=== PATIENT | male | born 1950 | race Caucasian/White ===

== ENCOUNTER 2020-05-28 10:37 | Outpatient (CLI) | payer MEDICARE, SELFPAY ==
--- NOTE | 2020-05-28 10:39 | ECG_ITS ---
Measurements Intervals [place] Rate: 69 P: 9 VT: 150 QRS: 6 QRSD: 112 T: 6 QT: 429 QTc: 462 Interpretive Statements SINUS RHYTHM DELAYED PRECORDIAL R/S TRANSITION MINIMAL Q WAVES- HIGH LATERAL LEADS INFERIOR INFARCT, AGE INDETERMINATE BASELINE ARTIFACT- I, II, III, AVR, AVL, AVF ABNORMAL ECG Electronically Signed On 05-28-2020 12:23:02 CDT by Arsh Schrader D.O.
== END 2020-05-28 10:38 | disposition home or self-care (01) ==
LOC: ANHSURGERY 10:39
PROVIDERS: PCP Family Medicine; Visit Provider Orthopaedic Surgery
DX: Z01.818 Encounter for other preprocedural examination (principal); I10 Essential (primary) hypertension; R94.31 Abnormal electrocardiogram [ECG] [EKG]
CPT/HCPCS: 93005

== ENCOUNTER 2020-05-29 01:59 | Outpatient (CLI) | payer MEDICARE, SELFPAY ==
[2020-05-29 19:30] LABS: SARS-CoV-2 RNA PCR Negative
== END 2020-05-29 02:00 | disposition home or self-care (01) ==
LOC: ANHCOVIDDT 01:59
PROVIDERS: PCP Family Medicine; Visit Provider Orthopaedic Surgery
DX: Z01.812 Encounter for preprocedural laboratory examination (principal); Z11.59 Encounter for screening for other viral diseases
CPT/HCPCS: 87635; C9803; U0003

== ENCOUNTER 2020-06-01 02:27 | Day surgery (SDC) | payer MEDICARE, SELFPAY ==
[2020-05-27 16:15] VITALS: BMI 35.9
[2020-06-01] VITALS (10 sets, daily range): BP systolic 134–188; BP diastolic 66–89; PULSE 66–77; RESP 12–20; TEMP 36.2–36.5; O2SAT 94–97
--- NOTE | 2020-06-01 08:57 | WPDHPUPDATE1 ---
History and Physical Update Update Date/Time: 06/01/20 08:57 History and Physical has been reviewed, including an updated exam of the patient. There are NO changes in the patient's condition. Risks, benefits, and alternatives have been discussed and questions answered. Patient agrees to proceed with procedure.
[2020-06-01] MEDS: CELECOXIB 200 MG CAPSULE PO (13:10)
[2020-06-01] MEDS: ACETAMINOPHEN 500 MG TABLET 1000 MG PO (13:10)
[2020-06-01] MEDS: LACTATED RINGERS 1,000 ML 30 ML IV CONT (13:15)
--- NOTE | 2020-06-01 13:41 | WPDANESEPPF ---
Anes - Initial Pre Proc Eval Procedure: Operation Date: 06/01/20 14:15 Proposed Procedures p Incision And Drainage Excision Of Left Prepatellar Bursa - Zeus Miguel MD Date/Time: 06/01/20 13:41 Surgeon: Zeus Miguel MD Pre Op Diagnosis: Left Prepatella Bursa Abcess Patient Data Age: 69 Gender: M Height: 5 ft 10 in Weight: 119.5 kg Last Vital Signs Temp 36.2 C L 06/01/20 13:08 Pulse 77 06/01/20 13:08 Resp 18 06/01/20 13:08 BP 134/66 06/01/20 13:08 Pulse Ox 97 06/01/20 13:08 Allergies Allergy/AdvReac Type Severity Reaction Status Date / Time No Known Allergies Allergy Verified 06/01/20 12:54 Home Medications Medication Instructions Recorded Confirmed Type levothyroxine 150 mcg tablet 150 mcg PO DAILY #90 tablet 02/24/20 06/01/20 Rx meloxicam 7.5 mg tablet 7.5 mg PO DAILY #90 tablet 02/24/20 06/01/20 Rx omeprazole 40 mg capsule,delayed 40 mg PO DAILY #90 cap 03/04/20 06/01/20 Rx release allopurinol 100 mg tablet 100 mg PO DAILY #90 tablet 04/28/20 06/01/20 Rx pravastatin 40 mg tablet 40 mg PO DAILY #90 tablet 05/12/20 06/01/20 Rx tiotropium bromide 2.5 2 inhalation INHALATION QAM #4 gm 05/26/20 06/01/20 Rx mcg/actuation mist for inhalation amlodipine 2.5 mg PO DAILY 05/27/20 06/01/20 History chlorhexidine gluconate 4 % 1 applic TOPICAL ONCE #237 ml 05/27/20 06/01/20 Rx topical liquid Patient hx anesthesia problems: none Family hx anesthesia problems: none PMFSH Past Medical History Medical History Anemia Elevated prostate specific antigen (PSA) Gout Hyperglycemia Hyperlipidemia Hypertension Hypothyroidism MIGNON (obstructive sleep apnea) Osteoarthritis Pulmonary fibrosis Tobacco abuse Surgical History Surgical History H/O ventral hernia repair Social History Social History Smoking packs per day: 1 Smoking cigarettes per day: 20.0 Years smoked: 10 Smoking pack-years: 10.00 Smoking status: Former smoker Tobacco type: cigarettes Smoking end date: 10/01/17 Alcohol intake: never Substance use: never Substance use type: does not use Living arrangements: with family Gender identity (if verbalized by the patient): Male Spiritual care concerns: No Anes - Eval Final PreProcedure Day of Procedure 06/01/20 13:41 Patient weight: obese Heart: regular rate and rhythm Lungs: decreased breath sounds Airway: Mallampati scale class III Neurological: alert and oriented Last oral intake: >/= 8 hours ASA classification: IV Emergent: no Anesthetic plan: proceed Anesthesia type and monitoring: general LMA and standard monitoring Informed Consent: The patient's anesthetic plan and its attendant risks and benefits were discussed with the patient/family/POA. Questions were solicited and answers provided to the satisfaction of the patient/family/POA.
--- NOTE | 2020-06-01 14:52 | SUR.PREOP ---
PT RESTING QUIELTY, DENIES NEEDS, UPDATED ON SURGERY TIME DELAY UPON ARRIVAL AND NOW.
[2020-06-01] MEDS: ceFAZolin 2 GM/D5W 50 ML 2 GM/50 ML BAG IVPB (15:55)
--- NOTE | 2020-06-01 17:08 | PM.OP ---
Procedure Note - Brief Procedure Note - Brief Date of procedure: 06/01/20 Pre-op diagnosis: Left Prepatella Bursa Abcess Post-op diagnosis: same (pathology and culture pending) Procedure performed: I AND D AND EXCISION OF LEFT PRE PATELLA BURSAE Anesthesia: GLMA Surgeon: Zeus Miguel MD Estimated blood loss (mL): 100 Drains: Yes Pathology: yes Complications: No immediate complications Condition: stable Disposition: PACU
--- NOTE | 2020-06-01 17:10 | PM.PROC ---
Procedure Note - Detailed Date of procedure: 06/01/20 Pre-op diagnosis: Left Prepatella Bursa Abcess Post-op diagnosis: same Procedure performed: LEFT KNEE I AND D AND EXCISION OF PREPATELLA BURSAE Description of procedure: THE LEFT KNEE WAS PREPPED AND DRAPED FROM THE TOES TO THE THIGH. TORNEQUET WAS INFLATED. INCISION WAS MADE OVER THE ABSCESS. CLOUDY FLUID WAS EXTRUDED FRO THR ABSCESS. IT APPEARED TO BE GOUT VS INFECTION. CULTURES WERE TAKEN. ANTIBIOTICS WERE STARTED. INCISION THEN WAS EXTENDED PROXIMALLY AND DISTALLY. DISSECTION CONTINUED UNTIL THE NORMAL PATELLA TENDON STRUCTURE WAS IDENTIFIED. SOFT TISSUE CONSISTING OF BURSA AND GOUTY TOPHUS AND SCAR TISSUE WERE THEN REMOVED FROM THE PREPATELLA REGION AND SHARP EXCISIONAL DEBRIDEMENT DOWN TO PERIOSTEUM WAS PREFORMED UNTIL THERE WAS GOOD BLEEDING TISSUE. SOME TISSUE WAS SENT FOR PATHOLOGY. THE DISSECTION CONTINUED UNTIL THE PATELLA WAS IDENTIFIED. AT THAT POINT THERE APPEARED TO HAVE NO GOUTY TOPHI IN THE PATELLA RETINACULUM AND SURROUNDING TISSUES. THE WOUND WAS THEN IRRIGATED WITH COPIOUS AMOUNTS OF FLUID. THE TORNEQUET WAS DEFLATED AND THE BLEEDERS WERE CAUTERIZED. THERE WAS AN ABUNDANT AMOUNT OF REDUNDANT SKIN. A DRAIN WAS PLACED IN THE DEEP FASCIA TO PREVENT SEROMA FORMATION. THE WOUND WAS CLOSED WITH A LAYER OF 2-0 VICRYL IN 2 LAYERS AND THEN THE SKIN WAS CLOSED WITH RAFI. STERILE DRESSING WAS APPLIED. PATIENT WAS EXTUBATED. Surgeon: Zeus Miguel MD
[2020-06-01] MEDS: ONDANSETRON INJ 4 MG/2 ML VIAL IV PUSH (17:26)
== END 2020-06-01 18:55 | disposition home or self-care (01) ==
PROVIDERS: PCP Family Medicine; Visit Provider Orthopaedic Surgery
PROC: (CPT 27301; principal; 2020-06-01 14:15)
DX: M71.062 Abscess of bursa, left knee (principal); L72.0 Epidermal cyst; I10 Essential (primary) hypertension; E78.5 Hyperlipidemia, unspecified; E03.9 Hypothyroidism, unspecified; M10.9 Gout, unspecified; G47.33 Obstructive sleep apnea (adult) (pediatric)
CPT/HCPCS: 27301; 87070; 87075; 87077; 87205; 88304; 88311; A9270; J0690; J1100; J2250; J2405; J2704; J3010; J7120

== ENCOUNTER 2020-06-08 20:27 | Emergency (ER) | payer MEDICARE, SELFPAY ==
[2020-06-08 20:29] VITALS: BP 180/96; PULSE 91; RESP 22; TEMP 36.3; O2SAT 99
--- NOTE | 2020-06-08 20:46 | ED.WOUNDLAC ---
HPI - Wound/Laceration General Chief Complaint: Extremity Problem,Nontraumatic Stated Complaint: staple fell out? Time Seen by Provider: 06/08/20 20:39 History of Present Illness HPI narrative: He had surgery to the right knee 1 week ago. Today he had a large amount of bleeding from the wound. He thinks that he may have bumped it. He has not removed the dressing to look at the wound yet. No pain. Related Data Home Medications Medication Instructions Recorded Confirmed amlodipine 2.5 mg PO DAILY 05/27/20 06/03/20 Allergies Allergy/AdvReac Type Severity Reaction Status Date / Time No Known Allergies Allergy Verified 06/08/20 20:53 Review of Systems Review of Systems: All systems reviewed & are unremarkable except as noted in HPI and below Neurologic: Denies numbness and Denies weakness PMFSH Past Medical History Medical History Anemia Elevated prostate specific antigen (PSA) Gout Hyperglycemia Hyperlipidemia Hypertension Hypothyroidism MIGNON (obstructive sleep apnea) Osteoarthritis Pulmonary fibrosis Tobacco abuse Surgical History Surgical History H/O ventral hernia repair Social History Social History Smoking packs per day: 1 Smoking cigarettes per day: 20.0 Years smoked: 10 Smoking pack-years: 10.00 Smoking status: Former smoker Tobacco type: cigarettes Smoking end date: 10/01/17 Alcohol intake: never Substance use: never Substance use type: does not use Gender identity (if verbalized by the patient): Male Spiritual care concerns: No Exam Const: General: no acute distress and alert Orientation/consciousness: patient oriented x3 HENMT: Head: normal to inspection Resp: Effort & Inspection: normal respiratory effort Cardio: Other: 2+ DP pulse on the right Skin: Other: 15 cm surgical wound over the anterior right knee with mattie in place. Small skin tear in the inferior portion of the wound with active bleeding and palpable underlying hematoma. Neuro: General: patient oriented x3, moves all extremities and no focal motor deficits Extrem: Other: full ROM Course Vital Signs Vital signs: Vital Signs Temperature 36.3 C L 06/08/20 20:29 Pulse Rate 91 06/08/20 20:29 Respiratory Rate 22 H 06/08/20 20:29 Blood Pressure 180/96 H 06/08/20 20:29 Pulse Oximetry 99 06/08/20 20:29 Temperature 36.3 C L 06/08/20 20:29 Pulse Rate 91 06/08/20 20:29 Respiratory Rate 22 H 06/08/20 20:29 Blood Pressure 180/96 H 06/08/20 20:29 Pulse Oximetry 99 06/08/20 20:29 MDM - Wound/Laceration MDM Narrative Medical decision making narrative: [place] in place and wound well approximated. I will redressed the wound and have an SHIRA wrap applied to help slow the bleeding. Medical Records Attestation: I reviewed the patient's medical records. Discharge Plan Discharge Clinical Impression: Bleeding from wound Patient Disposition: Home, Self-Care Condition: Stable Prescriptions: No Action amlodipine 2.5 mg tablet 2.5 mg PO DAILY RF: 0 hydrocodone-acetaminophen [[place]] 5-325 mg tablet 1 tablet PO Q6H PRN (Reason: pain) Qty: 60 RF: 0 meloxicam 7.5 mg tablet 7.5 mg PO DAILY Qty: 90 RF: 1 levothyroxine 150 mcg tablet 150 mcg PO DAILY Qty: 90 RF: 1 omeprazole 40 mg capsule,delayed release(DR/EC) 40 mg PO DAILY Qty: 90 RF: 0 allopurinol 100 mg tablet 100 mg PO DAILY Qty: 90 RF: 0 pravastatin 40 mg tablet 40 mg PO DAILY Qty: 90 RF: 0 tiotropium bromide [Spiriva Respimat] 2.5 mcg/actuation mist 2 inhalation inhalation QAM Qty: 4 RF: 0 amoxicillin-pot clavulanate [Augmentin] 875-125 mg tablet 1 tablet PO Q12H Qty: 30 RF: 0 Follow-up/Referrals: Keri Cui DO [Primary Care Provider] - Discharge Date/Time: 06/08/20 21:1
== END 2020-06-08 21:11 | disposition home or self-care (01) ==
PROVIDERS: Emergency Provider Emergency Medicine; PCP Family Medicine
DX: L76.22 Postprocedural hemorrhage of skin and subcutaneous tissue following other procedure (principal); I10 Essential (primary) hypertension; Z87.891 Personal history of nicotine dependence; M10.9 Gout, unspecified; E78.5 Hyperlipidemia, unspecified; E03.9 Hypothyroidism, unspecified; G47.33 Obstructive sleep apnea (adult) (pediatric); M19.90 Unspecified osteoarthritis, unspecified site; J84.10 Pulmonary fibrosis, unspecified
CPT/HCPCS: 99282

== ENCOUNTER 2020-06-10 10:07 | Outpatient (CLI) | payer MEDICARE, SELFPAY ==
[2020-06-10 10:57] LABS: Basophils Percent Auto 0.3 % (0.2-1.2); Eosinophils Absolute Auto 0.1 K/mm3 (0-0.3); Eosinophils Percent Auto 0.8 % (0-4.4); Hematocrit 36.8 % (42.0-52.0); Hemoglobin 12.1 g/dL (14.0-18.0); Immature Granulocyte Absolute 0.09 K/mm3 (0.00-0.031); Immature Granulocyte Percent A 0.8 % (0-0.5); Lymphocytes Absolute Auto 0.96 K/mm3 (0.9-3.2); Mean Corpuscular HGB Conc 32.9 g/dl (32-36); Mean Corpuscular Hemoglobin 28.8 pg (26-34); Mean Corpuscular Volume 87.6 fl (80-100); Mean Platelet Volume 11.6 fl (7.4-10.4); Monocytes Absolute Auto 0.9 K/mm3 (0.1-0.6); Monocytes Percent Auto 8.6 % (2.6-8.5); Neutrophils Absolute Auto 8.5 K/mm3 (1.3-6.7); Neutrophils Percent Auto 80.5 % (45.5-73.1); Platelet Count Result 204 k/mm3 (150-375); Red Cell Distribution Width 12.4 % (11.5-14.5); White Blood Count 10.6 K/mm3 (4.5-10.0)
== END 2020-06-10 10:08 | disposition home or self-care (01) ==
PROVIDERS: PCP Family Medicine; Visit Provider Orthopaedic Surgery
DX: D62 Acute posthemorrhagic anemia (principal)
CPT/HCPCS: 36415; 85025

== ENCOUNTER 2020-07-08 17:24 | Inpatient (IN) | payer MEDICARE, OTHER, SELFPAY ==
[2020-07-08] VITALS (11 sets, daily range): BP systolic 124–153; BP diastolic 57–75; PULSE 64–79; RESP 16–20; TEMP 36.3–36.7; O2SAT 93–99; BMI 40.1
--- NOTE | ~2020-07-08 | US_ITS ---
EXAMINATION: US venous doppler [facility] DATE: 07/12/2020 13:24 INDICATION: Lower limb pain and swelling TECHNIQUE: Grayscale ultrasound images without and with compression and Doppler ultrasound images of the bilateral lower extremity veins were obtained. COMPARISON: None. FINDINGS: The visualized portions of right common femoral vein, profunda (deep) femoral vein, femoral vein, pop liteal vein, posterior tibial veins, peroneal veins, gastrocnemius vein and greater saphenous vein ou tflow are patent. The visualized portions of left common femoral vein, profunda femoral vein, femoral vein, popliteal v ein, posterior tibial veins, peroneal veins, gastrocnemius vein and greater saphenous vein outflow ar e patent. IMPRESSION: 1. No deep venous thrombosis in either lower limb. Reviewed, dictated and finalized at location B.
[2020-07-08] MEDS: LACTATED RINGERS 1,000 ML 30 ML IV CONT ×2 (13:05→16:26)
[2020-07-08] MEDS: ACETAMINOPHEN 500 MG TABLET 1000 MG PO (13:18)
[2020-07-08] MEDS: KETOROLAC 15 MG/ML VIAL (*BKC) IV PUSH (13:18)
--- NOTE | 2020-07-08 14:43 | P.PNAN_ITS ---
Anes - Initial Pre Proc Eval Procedure: Operation Date: 07/08/20 15:00 Proposed Procedures p Incision and Drainage Prepatellar Bursa Left Knee with Application Wound Vac - Zeus Miguel MD Date/Time: 07/08/20 14:43 Surgeon: Zeus Miguel MD Pre Op Diagnosis: left infected prepatella bursa Patient Data Age: 69 Gender: M Height: 5 ft 10 in Weight: 127 kg Last Vital Signs Temp 36.6 C 07/08/20 12:55 Pulse 79 07/08/20 12:55 Resp 20 07/08/20 12:55 BP 146/70 H 07/08/20 12:55 Pulse Ox 97 07/08/20 12:55 Allergies Allergy/AdvReac Type Severity Reaction Status Date / Time No Known Allergies Allergy Verified 07/08/20 11:46 Home Medications Medication Instructions Recorded Confirmed Type levothyroxine 150 mcg tablet 150 mcg PO DAILY #90 tablet 02/24/20 07/08/20 Rx meloxicam 7.5 mg tablet 7.5 mg PO DAILY #90 tablet 02/24/20 07/08/20 Rx allopurinol 100 mg tablet 100 mg PO DAILY #90 tablet 04/28/20 07/08/20 Rx pravastatin 40 mg tablet 40 mg PO DAILY #90 tablet 05/12/20 07/08/20 Rx tiotropium bromide 2.5 2 inhalation INHALATION QAM #4 gm 05/26/20 06/15/20 Rx mcg/actuation mist for inhalation hydrocodone-acetaminophen [[place]] 1 tablet PO Q6H PRN #60 tablet NS 06/01/20 07/08/20 Rx omeprazole 40 mg capsule,delayed 40 mg PO DAILY #90 cap 06/15/20 07/08/20 Rx release amlodipine 2.5 mg tablet 2.5 mg PO DAILY #90 tablet 07/01/20 07/08/20 Rx amoxicillin 875 mg-potassium 1 tablet PO Q12H #30 tablet 07/02/20 07/08/20 Rx clavulanate 125 mg tablet Patient hx anesthesia problems: none Family hx anesthesia problems: none PMFSH Past Medical History Medical History Anemia Elevated prostate specific antigen (PSA) Gout Hyperglycemia Hyperlipidemia Hypertension Hypothyroidism MIGNON (obstructive sleep apnea) Osteoarthritis Prepatellar bursitis Pulmonary fibrosis Smoking Tobacco abuse Surgical History Surgical History H/O ventral hernia repair Social History Social History Smoking packs per day: 1 Smoking cigarettes per day: 20.0 Years smoked: 10 Smoking pack-years: 10.00 Smoking status: Current every day smoker Tobacco type: cigarettes Smoking end date: 10/01/17 Alcohol intake: never Substance use: never Substance use type: does not use Gender identity (if verbalized by the patient): Male Spiritual care concerns: No Anes - Eval Final PreProcedure Day of Procedure 07/08/20 14:43 Patient weight: morbidly obese Heart: regular rate and rhythm Lungs: clear to auscultation Airway: Mallampati scale class II, special considerations large neck and other (dentures) Neurological: alert and oriented Last oral intake: >/= 8 hours ASA classification: IV Emergent: yes Anesthetic plan: proceed Anesthesia type and monitoring: general ETT and standard monitoring Informed Consent: The patient's anesthetic plan and its attendant risks and benefits were discussed with the patient/family/POA. Questions were solicited and answers provided to the satisfaction of the patient/family/POA.
[2020-07-08] MEDS: ONDANSETRON INJ 4 MG/2 ML VIAL IV PUSH (14:55)
[2020-07-08] MEDS: FAMOTIDINE 20 MG/2 ML VIAL IV PUSH (14:55)
[2020-07-08] MEDS: ceFAZolin 3 GM/D5W 100 ML 100 ML IVPB (15:38)
[2020-07-08] MEDS: fentaNYL CITRATE INJ (*CRX) 100 MCG/2 ML VIAL 25 MCG IV PUSH ×3 (16:29→17:10)
--- NOTE | 2020-07-08 16:31 | PM.PROC ---
Procedure Note - Detailed Date of procedure: 07/08/20 Pre-op diagnosis: left infected prepatella bursa Post-op diagnosis: same Procedure performed: I AND D WITH DEBRIDEMENT OF LEFT PREPATELLA BURSAE Description of procedure: THE PATIENT WAS TAKEN TO THE OR AND INTUBATED. THE LEFT LOWER EXTREMITY WAS PREPPED AND DRAPED FROM THE THIGH TO THE TOES. THERE WAS A DRAINING ABSCESS FROM THE OLD INCISION. THE WOUND WAS DRAINING WAS CLOUDY FLUID. THE INCISION WAS INCREASED OVER THE PREPATELLA REGION TO ABOUT 3 INCHES. THE PREPATELLA SPACE DRAINED MORE CLOUDY FLUID. ADHESIONS AND BURSAL TISSUE WERE REMOVED WITH A RONJEUR FROM THE PREPATELLA SPACE. CULTURES WERE SENT. ANTIBIOTICS WERE STARTED. THE WOUND WAS IRRIGATED WITH 3 LITERS OF ANTIBIOTIC FLUID. A WOUND VAC SYSTEM WAS APPLIED AFTER THOROUGH DEBRIDEMENT OF THE WOUND. THE WOUND VAC WAS TESTED AND WORKING WELL. THE PATIENT WAS EXTUBATED AND SENT TO RECOVERY ROOM. Anesthesia: GLMA Surgeon: Zeus Miguel MD Estimated blood loss (mL): 50 Packing: Yes (WOUND VAC SYSTEM) Pathology: other (MICROBIOLOGY) Complications: No immediate complications Condition: stable Disposition: PACU
--- NOTE | 2020-07-08 17:25 | PC.NURSE ---
Direct admit from PACU.
[2020-07-08 18:45] LABS: Estimated CRCL calculation 115 ml/min; Estimated Glomerular Filt Rate > 60
[2020-07-08 18:49] LABS: CRP 5.2 mg/dL (<1.0)
[2020-07-08] MEDS: ASPIRIN 325 MG ENTERIC TABLET PO (20:43)
[2020-07-08] MEDS: DOCUSATE SODIUM 100 MG CAPSULE PO (20:43)
[2020-07-08] MEDS: oxyCODONE/ACETAMINOPHEN (*CRX) 5-325 MG TABLET 1 TABLET PO (20:46)
[2020-07-09] MEDS: oxyCODONE/ACETAMINOPHEN (*CRX) 5-325 MG TABLET 1 TABLET PO ×2 (00:56→05:02)
[2020-07-09 02:00] VITALS: BP 107/55; PULSE 63; RESP 16; TEMP 36.3; O2SAT 94
[2020-07-09 06:00] VITALS: BP 154/62; PULSE 65; RESP 16; TEMP 36.7; O2SAT 94
[2020-07-09] MEDS: LEVOTHYROXINE SODIUM 150 MCG TABLET PO (06:08)
[2020-07-09 06:44] LABS: Basophils Absolute Auto 0.1 K/mm3 (0.0-0.1); Basophils Percent Auto 0.6 % (0.2-1.2); Eosinophils Absolute Auto 0.2 K/mm3 (0-0.3); Hematocrit 37.7 % (42.0-52.0); Hemoglobin 12.3 g/dL (14.0-18.0); Immature Granulocyte Absolute 0.06 K/mm3 (0.00-0.031); Immature Granulocyte Percent A 0.8 % (0-0.5); Lymphocytes Absolute Auto 0.83 K/mm3 (0.9-3.2); Lymphocytes Percent Auto 10.4 % (18.3-44.2); Mean Corpuscular HGB Conc 32.6 g/dl (32-36); Mean Corpuscular Hemoglobin 28.1 pg (26-34); Mean Corpuscular Volume 86.3 fl (80-100); Monocytes Absolute Auto 0.7 K/mm3 (0.1-0.6); Monocytes Percent Auto 9.2 % (2.6-8.5); Neutrophils Absolute Auto 6.1 K/mm3 (1.3-6.7); Platelet Count Result 151 k/mm3 (150-375); Red Blood Count 4.37 M/mm3 (4.6-6.20); Red Cell Distribution Width 12.4 % (11.5-14.5)
[2020-07-09 07:06] LABS: Anion Gap 9 mmol/L (8-16); Blood Urea Nitrogen 14 mg/dL (9-20); Calcium 8.8 mg/dL (8.4-10.2); Carbon Dioxide 26 mmol/L (22-30); Chloride 103 mmol/L (98-107); Estimated CRCL calculation 102 ml/min; Estimated Glomerular Filt Rate > 60; Glucose 96 mg/dL (75-110); Potassium 3.9 mmol/L (3.4-5.0); Sodium 138 mmol/L (137-145)
[2020-07-09] MEDS: amLODIPine BESYLATE 2.5 MG TABLET PO (09:03)
[2020-07-09] MEDS: allopurinoL 100 MG TABLET PO (09:03)
[2020-07-09] MEDS: PANTOPRAZOLE 40 MG TABLET PO (09:03)
[2020-07-09] MEDS: DOCUSATE SODIUM 100 MG CAPSULE PO ×2 (09:03→21:02)
[2020-07-09] MEDS: ASPIRIN 325 MG ENTERIC TABLET PO ×2 (09:03→21:02)
[2020-07-09] MEDS: MELOXICAM 7.5 MG TABLET PO (09:03)
[2020-07-09] MEDS: PRAVASTATIN SODIUM 20 MG TABLET 40 MG PO (09:03)
[2020-07-09 09:17] VITALS: O2SAT 94
--- NOTE | 2020-07-09 09:35 | PM.IMHP ---
H&P: HPI History of Present Illness Date/Time: 07/09/20 09:35 Kvng Brownlee is a 69 year old male with PMH significant for tophaceous gout, hypertension, hypothyroidism, and hyperlipidemia who is seen in consultation for medical management following incision and drainage with debridement of the left prepatellar bursa on 07/08/[address] Miguel. He has a hx of an abscess to the left prepatellar bursa in 2016 and was treated with IV antibiotics and underwent I&D at that time. He did not have any further issues until approximately 1 month ago when he developed increased pain, erythema, swelling, and purulent drainage at the prepatellar area. He underwent aspiration by Dr. Miguel in the office and subsequent incision and drainage and excision of the prepatellar bursa 06/01/20. Cultures were positive for group B strep and he was treated with augmentin. He subsequently bumped his knee and suffered a skin tear and hematoma to the inferior portion of the incision 06/08/20. Wound vac was placed and he was followed in the wound clinic. He presented for outpatient follow-up yesterday and increased swelling, erythema, and warmth were noted to the right knee with purulent drainage present. Wound cultures were obtained and he underwent incision and drainage with debridement of the prepatellar bursa. An abscess which drained cloudy fluid was noted intraoperatively and cultures were sent. The wound was irrigated and wound vac was subsequently placed after debridement. He was subsequently admitted to the hospital for IV antibiotic therapy with vancomycin. Initial labs demonstrate WBC 8.0, Hb 12.3, Hct 37.7. BMP is unremarkable. CRP is 5.2. Gram stain from 07/08/20 demonstrates WBC with no organisms and initial anaerobic wound culture demonstrates WBC with no organisms visualized. Aerobic wound culture is pending. At the time of my assessment, he reports that he is doing very well. He denies subjective fever and chills. He reports minimal pain in the left knee. He is tolerating his diet and has no other concerns. He denies calf pain, dyspnea, chest pain, and palpitations. Chief complaint: left infected prepatella bursa PMFSH Past Medical History Medical History Anemia Elevated prostate specific antigen (PSA) Gout Hyperglycemia Hyperlipidemia Hypertension Hypothyroidism MIGNON (obstructive sleep apnea) Osteoarthritis Prepatellar bursitis Pulmonary fibrosis Smoking Tobacco abuse Surgical History Surgical History H/O ventral hernia repair Social History Social History Smoking packs per day: 1 Smoking cigarettes per day: 20.0 Years smoked: 10 Smoking pack-years: 10.00 Smoking status: Former smoker Tobacco type: cigarettes Smoking end date: 05/01/20 Alcohol intake: never Substance use: never Substance use type: does not use Gender identity (if verbalized by the patient): Male Spiritual care concerns: No Meds Home Medications and Allergies Home Medications Medication Instructions Recorded Confirmed Type levothyroxine 150 mcg tablet 150 mcg PO DAILY #90 tablet 02/24/20 07/08/20 Rx meloxicam 7.5 mg tablet 7.5 mg PO DAILY #90 tablet 02/24/20 07/08/20 Rx allopurinol 100 mg tablet 100 mg PO DAILY #90 tablet 04/28/20 07/08/20 Rx pravastatin 40 mg tablet 40 mg PO DAILY #90 tablet 05/12/20 07/08/20 Rx tiotropium bromide 2.5 2 inhalation INHALATION QAM #4 gm 05/26/20 07/08/20 Rx mcg/actuation mist for inhalation hydrocodone-acetaminophen [[place]] 1 tablet PO Q6H PRN #60 tablet NS 06/01/20 07/08/20 Rx omeprazole 40 mg capsule,delayed 40 mg PO DAILY #90 cap 06/15/20 07/08/20 Rx release amlodipine 2.5 mg tablet 2.5 mg PO DAILY #90 tablet 07/01/20 07/08/20 Rx amoxicillin 875 mg-potassium 1 tablet PO Q12H #30 tablet 07/02/20 07/08/20 Rx clavulanate 125 mg tablet Allergies
[2020-07-09 10:00] VITALS: BP 134/60; PULSE 72; RESP 18; TEMP 36.8; O2SAT 95
--- NOTE | 2020-07-09 12:38 | PM.PNORT ---
Progress Note: A&P Additional Plan POD 1 DOING WELL. CONT ABX. WOUND CHANGE ON SUNDAY Subjective Subjective Date/Time Seen: 07/09/20 12:38 POD 1 DOING WELL. AFEBRILE. NO CALF PAIN Exam Extrem: Other: LEFT KNEE WOUND VAC IN PLACE, NO CALF PAIN. CELLULITIS IMPROVED NV INTACT Objective Data Vital Signs Vital Signs: Vital Signs - 24 hr 07/08/20 12:55 07/08/20 16:14 07/08/20 16:30 Temperature 36.6 C 36.3 C L Pulse Rate 79 70 66 Respiratory Rate 20 20 16 Blood Pressure 146/70 H 137/68 135/72 Pulse Oximetry 97 99 99 07/08/20 16:45 07/08/20 17:00 07/08/20 17:15 Temperature Pulse Rate 69 64 66 Respiratory Rate 20 19 20 Blood Pressure 136/73 127/65 129/57 L Pulse Oximetry 98 93 93 07/08/20 17:24 07/08/20 17:39 07/08/20 18:09 Temperature 36.5 C 36.5 C 36.4 C L Pulse Rate 65 66 67 Respiratory Rate 20 18 18 Blood Pressure 153/70 H 149/75 H 148/67 H Pulse Oximetry 99 98 94 07/08/20 19:15 07/08/20 22:00 07/09/20 02:00 Temperature 36.7 C 36.6 C 36.3 C L Pulse Rate 74 67 63 Respiratory Rate 20 18 16 Blood Pressure 136/63 124/67 107/55 L Pulse Oximetry 95 95 94 07/09/20 06:00 07/09/20 09:17 07/09/20 10:00 Temperature 36.7 C 36.8 C Pulse Rate 65 72 Respiratory Rate 16 18 Blood Pressure 154/62 H 134/60 Pulse Oximetry 94 94 95 Intake/Output Intake/Output: Intake & Output 07/06/20 07/07/20 07/08/20 07/09/20 23:59 23:59 23:59 23:59 Intake Total 650 1540 Output Total 2050 Balance 650 -510 Meds/Results Medications: Active Medications Generic Name Dose Route Start Last Admin Trade Name Freq PRN Reason Stop Dose Admin Hydrocodone Bitart/Acetaminophen 1 tab 07/08/20 17:24 Hydrocodone/Acetaminophen (*Crx) 7.5-325 Mg Tablet PO Q3H PRN Pain Rated 4-6 Allopurinol 100 mg 07/09/20 09:00 07/09/20 09:03 Allopurinol 100 Mg Tablet PO 100 mg DAILY [facility]AHRA Administration Amlodipine Besylate 2.5 mg 07/09/20 09:00 07/09/20 09:03 Amlodipine Besylate 2.5 Mg Tablet PO 2.5 mg DAILY [facility]AHRA Administration Aspirin 325 mg 07/08/20 21:00 07/09/20 09:03 Aspirin 325 Mg Enteric Tablet PO 325 mg Q12HR [facility]AHRA Administration Diazepam 5 mg 07/08/20 17:24 Diazepam (*Crx) 5 Mg Tablet PO Q8H PRN Muscle Spasm Docusate Sodium 100 mg 07/08/20 21:00 07/09/20 09:03 Docusate Sodium 100 Mg Capsule PO 100 mg Q12HR [facility]AHRA Administration Levothyroxine Sodium 150 mcg 07/09/20 06:30 07/09/20 06:08 Levothyroxine Sodium 150 Mcg Tablet PO 150 mcg DAILY@0630 [facility] Administration Magnesium Hydroxide 30 ml 07/08/20 17:24 Magnesium Hydroxide Susp 30 Ml Udc PO BID PRN Constipation Meloxicam 7.5 mg 07/09/20 09:00 07/09/20 09:03 Meloxicam 7.5 Mg Tablet PO 7.5 mg DAILY [facility] Administration Morphine Sulfate 3 mg 07/08/20 17:24 Morphine Sulfate (*Crx) 4 Mg/Ml Inj IV PUSH Q3H PRN Pain Rated 7-10 Ondansetron HCl 4 mg 07/08/20 17:24 Ondansetron Inj 4 Mg/2 Ml Vial IV PUSH Q4H PRN Nausea And Vomiting Oxycodone/Acetaminophen 1 tablet 07/08/20 17:24 07/09/20 09:03 Oxycodone/Acetaminophen (*Crx) 5-325 Mg Tablet PO Not Given Q4HR [facility] Pantoprazole Sodium 40 mg 07/09/20 09:00 07/09/20 09:03 Pantoprazole 40 Mg Tablet PO 40 mg QAM [facility] Administration Pravastatin Sodium 40 mg 07/09/20 09:00 07/09/20 09:03 Pravastatin Sodium 20 Mg Tablet PO 40 mg DAILY [facility]RA Administration Labs Labs: Laboratory Results - last 24 hr 07/08/20 07/08/20 07/09/20 18:27 18:27 06:01 WBC 8.0 RBC 4.37 L Hgb 12.3 L Hct 37.7 L MCV 86.3 MCH 28.1 MCHC 32.6 RDW 12.4 Plt Count 151 MPV 12.0 H Immature Gran % (Auto) 0.8 H Neut % (Auto) 76.0 H Lymph % (Auto) 10.4 L [place] % (Auto) 9.2 H Eos % (Auto) 3.0 Baso % (Auto) 0.6 Lymph # (Auto) 0.83 L [place] # (Auto) 0.7 H Eos # (Auto) 0.2 Baso # (Auto) 0.1 Abs Immat Gran (auto) 0.06 H
--- NOTE | 2020-07-09 13:27 | WPDANESPN ---
Anes - Prog Note Post-Op Date/Time: 07/09/20 13:27 Cardiovascular status: normal Respiratory status: normal Airway patency: baseline Mental status: baseline Post-Op hydration status: normal Vital Signs: Last Vital Signs Temp 36.8 C 07/09/20 10:00 Pulse 72 07/09/20 10:00 Resp 18 07/09/20 10:00 BP 134/60 07/09/20 10:00 Pulse Ox 95 07/09/20 10:00 Pain Score (VAS): 2 I/O: Intake & Output 07/08/20 07/09/20 07/09/20 23:59 07:59 15:59 Intake Total 550 800 740 Output Total 2050 Balance 550 -1250 740 Laboratory Tests 07/09/20 06:01 07/09/20 06:01 07/08/20 07/08/20 07/09/20 18:27 18:27 06:01 WBC 8.0 RBC 4.37 L Hgb 12.3 L Hct 37.7 L MCV 86.3 MCH 28.1 MCHC 32.6 RDW 12.4 Plt Count 151 MPV 12.0 H Immature Gran % (Auto) 0.8 H Neut % (Auto) 76.0 H Lymph % (Auto) 10.4 L [place] % (Auto) 9.2 H Eos % (Auto) 3.0 Baso % (Auto) 0.6 Lymph # (Auto) 0.83 L [place] # (Auto) 0.7 H Eos # (Auto) 0.2 Baso # (Auto) 0.1 Abs Immat Gran (auto) 0.06 H Absolute Neuts (auto) 6.1 Absolute Nucleated RBC 0.0 Nucleated RBC % 0.0 Sodium Potassium Chloride Carbon Dioxide Anion Gap BUN Creatinine 0.70 Estim Creat Clear Calc 115 Estimated GFR > 60 Glucose Calcium C-Reactive Protein 5.2 H 07/09/20 06:01 WBC RBC Hgb Hct MCV MCH MCHC RDW Plt Count MPV Immature Gran % (Auto) Neut % (Auto) Lymph % (Auto) [place] % (Auto) Eos % (Auto) Baso % (Auto) Lymph # (Auto) [place] # (Auto) Eos # (Auto) Baso # (Auto) Abs Immat Gran (auto) Absolute Neuts (auto) Absolute Nucleated RBC Nucleated RBC % Sodium 138 Potassium 3.9 Chloride 103 Carbon Dioxide 26 Anion Gap 9 BUN 14 Creatinine 0.80 Estim Creat Clear Calc 102 Estimated GFR > 60 Glucose 96 Calcium 8.8 C-Reactive Protein Microbiology 07/08/20 15:35 Knee Left Anaerobic Culture - Preliminary Post-procedural complaints: none Patient Feedback: Patient satisfied with anesthetic care.
--- NOTE | 2020-07-09 14:08 | PM.IMCN ---
Assessment and Plan Assessment and plan (1) Prepatellar bursitis: Qualifiers: Laterality: left Qualified Code(s): M70.42 - Prepatellar bursitis, left knee Code(s): M70.40 - Prepatellar bursitis, unspecified knee Status: Acute Assessment and Plan: He is s/p incision and drainage with debridement of the prepatellar bursa by Dr. Miguel 07/08/20. He is doing very well post-operatively. Wound vac is in place with good seal. Gram stain from 07/08/20 demonstrates WBC with no organisms. Initial anaerobic wound culture demonstrates WBC with no organisms visualized and aerobic wound culture is pending. Wound culture from 06/01/20 demonstrated group B strep. Discussed with Dr. Miguel and will continue IV vancomycin for now and await further input from infectious disease which are greatly appreciated. Management and post-op care including DVT prophylaxis, wound care, weight bearing, discharge disposition per orthopedic surgery. (2) Gout: Code(s): M10.9 - Gout, unspecified Status: Acute Assessment and Plan: Continue allopurinol. (3) Hyperglycemia: Code(s): R73.9 - Hyperglycemia, unspecified Status: Acute Assessment and Plan: Fasting blood sugars were elevated on review of prior labs up to 157. Check hemoglobin A1c. Continue to monitor on daily labs. (4) Hyperlipidemia: Code(s): E78.5 - Hyperlipidemia, unspecified Status: Chronic Assessment and Plan: LFTs were normal on labs from 12/2018. Plan for CMP tomorrow. Continue pravastatin. (5) Hypertension: Code(s): I10 - Essential (primary) hypertension Status: Chronic Assessment and Plan: Blood pressures were reviewed and are reasonably controlled. Most recent BP was 134/60. Continue amlodipine. Continue to monitor and adjust treatment as necessary. (6) MIGNON (obstructive sleep apnea): Code(s): G47.33 - Obstructive sleep apnea (adult) (pediatric) Status: Chronic Assessment and Plan: Continue CPAP titrated to home settings while inpatient. (7) Hypothyroidism: Code(s): E03.9 - Hypothyroidism, unspecified Status: Chronic Assessment and Plan: Will check TSH. Continue levothyroxine. (8) Morbid obesity: Code(s): E66.01 - Morbid (severe) obesity due to excess calories Status: Acute Assessment and Plan: I discussed the importance of weight loss on his overall health. He needs to implement calorie restriction and exercise for weight loss. Additional Plan The patient is admitted as inpatient to the orthopedic surgery service and seen in consultation by the hospitalist service. The supervising physician for this consult is Dr. Alba. HPI Data of Consult Consult date: 07/09/20 Requesting Physician: Zeus Miguel MD Primary Care Provider: Keri Cui, DO Consult Narrative Narrative: Kvng Brownlee is a 69 year old male with PMH significant for tophaceous gout, hypertension, hypothyroidism, and hyperlipidemia who is seen in consultation for medical management following incision and drainage with debridement of the left prepatellar bursa on 07/08/[address] Miguel. He has a hx of an abscess to the left prepatellar bursa in 2015 and was treated with IV antibiotics and underwent I&D at that time. He did not have any further issues until approximately 1 month ago when he developed increased pain, erythema, swelling, and purulent drainage at the prepatellar area. He underwent aspiration by Dr. Miguel in the office and subsequent incision and drainage and excision of the prepatellar bursa 06/01/20. Cultures were positive for group B strep and he was treated with augmentin. He subsequently bumped his knee and suffered a skin tear and hematoma to the inferior portion of the incision 06/08/20. Wound vac was placed and he was followed in the wound clinic. He presented for outpatient follow-up yest
[2020-07-09 15:09] VITALS: BP 131/61; PULSE 75; RESP 18; TEMP 36.8; O2SAT 96
--- NOTE | 2020-07-09 16:26 | WPDINFPN2 ---
Progress Note: A&P Assessment and Plan (1) Prepatellar bursitis: Qualifiers: Laterality: left Qualified Code(s): M70.42 - Prepatellar bursitis, left knee Code(s): M70.40 - Prepatellar bursitis, unspecified knee Status: Acute Assessment and Plan: group B Strep. septic bursitis, POD #1 REC Ancef 2 days more, then would give dicloxacillin 2 additional weeks Subjective Date/time seen: 07/09/20 16:26 Objective Data Vital Signs Vital Signs: Vital Signs - 24 hr 07/08/20 16:30 07/08/20 16:45 07/08/20 17:00 Temperature Pulse Rate 66 69 64 Respiratory Rate 16 20 19 Blood Pressure 135/72 136/73 127/65 Pulse Oximetry 99 98 93 07/08/20 17:15 07/08/20 17:24 07/08/20 17:39 Temperature 36.5 C 36.5 C Pulse Rate 66 65 66 Respiratory Rate 20 20 18 Blood Pressure 129/57 L 153/70 H 149/75 H Pulse Oximetry 93 99 98 07/08/20 18:09 07/08/20 19:15 07/08/20 22:00 Temperature 36.4 C L 36.7 C 36.6 C Pulse Rate 67 74 67 Respiratory Rate 18 20 18 Blood Pressure 148/67 H 136/63 124/67 Pulse Oximetry 94 95 95 07/09/20 02:00 07/09/20 06:00 07/09/20 09:17 Temperature 36.3 C L 36.7 C Pulse Rate 63 65 Respiratory Rate 16 16 Blood Pressure 107/55 L 154/62 H Pulse Oximetry 94 94 94 07/09/20 10:00 07/09/20 15:09 Temperature 36.8 C 36.8 C Pulse Rate 72 75 Respiratory Rate 18 18 Blood Pressure 134/60 131/61 Pulse Oximetry 95 96 Intake/Output Intake/Output: Intake & Output 07/06/20 07/07/20 07/08/20 07/09/20 23:59 23:59 23:59 23:59 Intake Total 650 1780 Output Total 2050 Balance 650 -270 Meds/Results Medications: Active Medications Generic Name Dose Route Start Last Admin Trade Name Freq PRN Reason Stop Dose Admin Hydrocodone Bitart/Acetaminophen 1 tab 07/08/20 17:24 Hydrocodone/Acetaminophen (*Crx) 7.5-325 Mg Tablet PO Q3H PRN Pain Rated 4-6 Allopurinol 100 mg 07/09/20 09:00 07/09/20 09:03 Allopurinol 100 Mg Tablet PO 100 mg DAILY [facility] Administration Amlodipine Besylate 2.5 mg 07/09/20 09:00 07/09/20 09:03 Amlodipine Besylate 2.5 Mg Tablet PO 2.5 mg DAILY [facility] Administration Aspirin 325 mg 07/08/20 21:00 07/09/20 09:03 Aspirin 325 Mg Enteric Tablet PO 325 mg Q12HR [facility] Administration Diazepam 5 mg 07/08/20 17:24 Diazepam (*Crx) 5 Mg Tablet PO Q8H PRN Muscle Spasm Docusate Sodium 100 mg 07/08/20 21:00 07/09/20 09:03 Docusate Sodium 100 Mg Capsule PO 100 mg Q12HR [facility] Administration Cefazolin Sodium 2 gm in 50 mls @ 100 mls/hr 07/09/20 16:25 Ancef 2 Gm/D5w 50 Ml IVPB Q8H [facility] Levothyroxine Sodium 150 mcg 07/09/20 06:30 07/09/20 06:08 Levothyroxine Sodium 150 Mcg Tablet PO 150 mcg DAILY@0630 [facility] Administration Magnesium Hydroxide 30 ml 07/08/20 17:24 Magnesium Hydroxide Susp 30 Ml Udc PO BID PRN Constipation Meloxicam 7.5 mg 07/09/20 09:00 07/09/20 09:03 Meloxicam 7.5 Mg Tablet PO 7.5 mg DAILY [facility] Administration Morphine Sulfate 3 mg 07/08/20 17:24 Morphine Sulfate (*Crx) 4 Mg/Ml Inj IV PUSH Q3H PRN Pain Rated 7-10 Ondansetron HCl 4 mg 07/08/20 17:24 Ondansetron Inj 4 Mg/2 Ml Vial IV PUSH Q4H PRN Nausea And Vomiting Oxycodone/Acetaminophen 1 tablet 07/08/20 17:24 07/09/20 12:52 Oxycodone/Acetaminophen (*Crx) 5-325 Mg Tablet PO Not Given Q4HR [facility] Pantoprazole Sodium 40 mg 07/09/20 09:00 07/09/20 09:03 Pantoprazole 40 Mg Tablet PO 40 mg QAM [facility] Administration Pravastatin Sodium 40 mg 07/09/20 09:00 07/09/20 09:03 Pravastatin Sodium 20 Mg Tablet PO 40 mg DAILY [facility] Administration Labs Labs: Laboratory Results - last 24 hr 07/08/20 07/08/20 07/09/20 18:27 18:27 06:01 WBC 8.0 RBC 4.37 L Hgb 12.3 L Hct 37.7 L MCV 86.3 MCH 28.1 MCHC 32.6 RDW 12.4 Plt Count 151 MPV 12.0 H Immature Gran % (Auto) 0.8 H Neut % (Auto) 76
[2020-07-09] MEDS: ceFAZolin 2 GM/D5W 50 ML 2 GM/50 ML BAG IVPB (17:06)
[2020-07-09 22:00] VITALS: BP 137/69; PULSE 67; RESP 18; TEMP 37.1; O2SAT 95
[2020-07-10] MEDS: ceFAZolin 2 GM/D5W 50 ML 2 GM/50 ML BAG IVPB ×3 (01:10→17:29)
[2020-07-10 04:59] LABS: Hematocrit 36.2 % (42.0-52.0); Mean Corpuscular HGB Conc 33.1 g/dl (32-36); Mean Corpuscular Hemoglobin 28.1 pg (26-34); Mean Corpuscular Volume 84.8 fl (80-100); Mean Platelet Volume 12.3 fl (7.4-10.4); Platelet Count Result 162 k/mm3 (150-375); Red Blood Count 4.27 M/mm3 (4.6-6.20); Red Cell Distribution Width 12.3 % (11.5-14.5); White Blood Count 7.5 K/mm3 (4.5-10.0)
[2020-07-10 05:17] LABS: Potassium 3.7 mmol/L (3.4-5.0)
[2020-07-10 05:19] LABS: CRP 4.3 mg/dL (<1.0)
[2020-07-10 05:19] LABS: Anion Gap 6 mmol/L (8-16); Blood Urea Nitrogen 12 mg/dL (9-20); Calcium 8.6 mg/dL (8.4-10.2); Carbon Dioxide 30 mmol/L (22-30); Chloride 103 mmol/L (98-107); Estimated CRCL calculation 102 ml/min; Estimated Glomerular Filt Rate > 60; Glucose 98 mg/dL (75-110); Sodium 139 mmol/L (137-145)
[2020-07-10] MEDS: LEVOTHYROXINE SODIUM 150 MCG TABLET PO (05:37)
[2020-07-10 06:00] VITALS: BP 150/65; PULSE 67; RESP 18; TEMP 36.8; O2SAT 97
[2020-07-10 06:40] LABS: Thyroid Stimulating Hormone Reflex 0.842 uIU/mL (0.465-4.68)
--- NOTE | 2020-07-10 07:36 | PC.NURSE ---
Addendum entered by Kristen Carvalho RN 07/10/20 07:59: [employer] delivered wound vac @0745. Suction re-established @0755 with 175mmHg. Seal Check performed. Original Note: Notified Cell Attendant Helper, Jocelin Tellez, @0615 that a new wound vac canister would be needed. At 0630, 0640, and 0645 this nurse attempted to call [employer] to obtain canister. At 0655 successfully contacted [employer] for canister. Gave report at 0730 to oncoming nurse Mary and notified charge nurse Tasha that per protocol the wound vac canister was ordered from [employer]. Reminded that protocol states a wound vac should only be turned off up to 2 hours before being removed and replaced with a wet to dry dressing.
[2020-07-10] MEDS: allopurinoL 100 MG TABLET PO (08:11)
[2020-07-10] MEDS: amLODIPine BESYLATE 2.5 MG TABLET PO (08:11)
[2020-07-10] MEDS: ASPIRIN 325 MG ENTERIC TABLET PO ×2 (08:11→21:09)
[2020-07-10] MEDS: DOCUSATE SODIUM 100 MG CAPSULE PO ×2 (08:11→21:09)
[2020-07-10] MEDS: PANTOPRAZOLE 40 MG TABLET PO (08:12)
[2020-07-10] MEDS: PRAVASTATIN SODIUM 20 MG TABLET 40 MG PO (08:12)
[2020-07-10] MEDS: MELOXICAM 7.5 MG TABLET PO (08:12)
--- NOTE | 2020-07-10 08:58 | PM.PNORT ---
Progress Note: A&P Assessment and Plan (1) Prepatellar bursitis: Qualifiers: Laterality: left Qualified Code(s): M70.42 - Prepatellar bursitis, left knee Code(s): M70.40 - Prepatellar bursitis, unspecified knee Status: Acute Assessment and Plan: Postoperative day 2. Left patellar bursitis debridement. Wound VAC in place and functioning. Repeat cultures pending. Appreciate plan from Infectious Disease. Continue IV antibiotics today and tomorrow then switched to oral. Plan for wound VAC dressing change July 12. Subjective Subjective Date/Time Seen: 07/10/20 08:58 Patient up in chair, awake and alert. Minimal pain. No new complaints. Exam Const: General: comfortable and no acute distress HENMT: Mouth: Yes moist mucous membranes Eyes: General: appearance normal, both eyes and all related structures Neck: Neck: supple and no JVD Resp: Effort & Inspection: normal respiratory effort Cardio: Rate: regular rate Rhythm: regular rhythm GI: Inspection: non-distended GI Palp: Yes Soft to palpation and No Tenderness to palpation present (GI) Skin: Other: Wound VAC dressing applied to left knee with good suction. AROM/PROM of the left knee without pain. Good capillary refill in toes. Good sensation light touch. Negative Homans sign. Neuro: General: gait normal Cognition (Neuro): normal cognition Speech: normal speech Extrem: Left lower extremity: knee Details: abnormal to inspection Details: with a suprapatellar bulge, tenderness Location: of the patella, swelling Location: of the pre-patellar area and abnormal ROM (limitations but no pain ) Other: see skin assessment for left knee assessment. Psych: Mental Status: mental status grossly normal Affect: normal affect Objective Data Vital Signs Vital Signs: Vital Signs - 24 hr 07/09/20 09:17 07/09/20 10:00 07/09/20 15:09 Temperature 98.2 F 98.3 F Pulse Rate 72 75 Respiratory Rate 18 18 Blood Pressure 134/60 131/61 Pulse Oximetry 94 95 96 07/09/20 22:00 07/10/20 06:00 Temperature 98.8 F 98.3 F Pulse Rate 67 67 Respiratory Rate 18 18 Blood Pressure 137/69 150/65 H Pulse Oximetry 95 97 Intake/Output Intake/Output: Intake & Output 07/07/20 07/08/20 07/09/2007/10/20 23:59 23:59 23:59 23:59 Intake Total 650 3070 500 Output Total 3350 1800 Balance 650 -280 -1300 Meds/Results Medications: Active Medications Generic Name Dose Route Start Last Admin Trade Name Freq PRN Reason Stop Dose Admin Hydrocodone Bitart/Acetaminophen 1 tab 07/08/20 17:24 Hydrocodone/Acetaminophen (*Crx) 7.5-325 Mg Tablet PO Q3H PRN Pain Rated 4-6 Allopurinol 100 mg 07/09/20 09:00 07/10/20 08:11 Allopurinol 100 Mg Tablet PO 100 mg DAILY ZAHRA Administration Amlodipine Besylate 2.5 mg 07/09/20 09:00 07/10/20 08:11 Amlodipine Besylate 2.5 Mg Tablet PO 2.5 mg DAILY ZAHRA Administration Aspirin 325 mg 07/08/20 21:00 07/10/20 08:11 Aspirin 325 Mg Enteric Tablet PO 325 mg Q12HR ZAHRA Administration Diazepam 5 mg 07/08/20 17:24 Diazepam (*Crx) 5 Mg Tablet PO Q8H PRN Muscle Spasm Docusate Sodium 100 mg 07/08/20 21:00 07/10/20 08:11 Docusate Sodium 100 Mg Capsule PO 100 mg Q12HR ZAHRA Administration Cefazolin Sodium 2 gm in 50 mls @ 100 mls/hr 07/09/20 18:00 07/10/20 01:40 Ancef 2 Gm/D5w 50 Ml IVPB Infused Q8H ZAHRA Infusion Levothyroxine Sodium 150 mcg 07/09/20 06:30 07/10/20 05:37 Levothyroxine Sodium 150 Mcg Tablet PO 150 mcg DAILY@0630 ZAHRA Administration Magnesium Hydroxide 30 ml 07/08/20 17:24 Magnesium Hydroxide Susp 30 Ml Udc PO BID PRN Constipation Meloxicam 7.5 mg 07/09/20 09:00 07/10/20 08:12 Meloxicam 7.5 Mg Tablet PO 7.5 mg DAILY ZAHRA Administration Morphine Sulfate 3 mg 07/08/20 17:24 Morphine Sulfate (*Crx) 4 Mg/Ml Inj IV PUSH Q3H PRN Pain Rated 7-10 Ondansetron HCl
[2020-07-10 09:03] LABS: Hemoglobin A1C 5.4 % (<5.7)
[2020-07-10 10:00] VITALS: PULSE 78; RESP 21; O2SAT 95
--- NOTE | 2020-07-10 10:00 | PM.IMPN ---
Progress Note: A&P Assessment and Plan (1) Prepatellar bursitis: Qualifiers: Laterality: left Qualified Code(s): M70.42 - Prepatellar bursitis, left knee Code(s): M70.40 - Prepatellar bursitis, unspecified knee Status: Acute Assessment and Plan: He is s/p incision and drainage with debridement of the prepatellar bursa by Dr. Miguel 07/08/20. He is doing very well post-operatively. Wound vac is in place. Gram stain from 07/08/20 demonstrates WBC with no organisms. Initial anaerobic wound culture demonstrates WBC with no organisms visualized and aerobic wound culture is pending. Wound culture from 06/01/20 demonstrated group B strep. Infectious disease recommends IV cefazolin through 07/11 and then dicloxacillin for 2 additional weeks. Management and post-op care including DVT prophylaxis, wound care, weight bearing, discharge disposition per orthopedic surgery. (2) Gout: Code(s): M10.9 - Gout, unspecified Status: Acute Assessment and Plan: Continue allopurinol. (3) Hyperglycemia: Code(s): R73.9 - Hyperglycemia, unspecified Status: Acute Assessment and Plan: Fasting blood sugars were elevated on review of prior labs up to 157. Hemoglobin A1c is 5.4%. Lifestyle intervention to prevent glucose intolerance is recommended including weight loss with diet intervention and exercise. Continue to monitor on daily labs. (4) Hyperlipidemia: Code(s): E78.5 - Hyperlipidemia, unspecified Status: Chronic Assessment and Plan: LFTs were normal on labs from 12/2018. Check CMP tomorrow to evaluate LFTs. Continue pravastatin. (5) Hypertension: Code(s): I10 - Essential (primary) hypertension Status: Chronic Assessment and Plan: Blood pressures were reviewed and are reasonably controlled. AM reading was 150/65. Continue amlodipine. Continue to monitor and adjust treatment as necessary. (6) MIGNON (obstructive sleep apnea): Code(s): G47.33 - Obstructive sleep apnea (adult) (pediatric) Status: Chronic Assessment and Plan: Continue CPAP titrated to home settings while inpatient. (7) Hypothyroidism: Code(s): E03.9 - Hypothyroidism, unspecified Status: Chronic Assessment and Plan: TSH is 0.842. Continue levothyroxine. (8) Morbid obesity: Code(s): E66.01 - Morbid (severe) obesity due to excess calories Status: Acute Assessment and Plan: I discussed the importance of weight loss on his overall health. He needs to implement calorie restriction and exercise for weight loss. Subjective Date/time seen: 07/10/20 10:00 Pro Brownlee is a 69 y.o. male who is seen in follow-up for left pre-patellar bursitis s/p incision and drainage 07/08/20. He is doing well with only minimal pain. He slept throughout the day and thus did not sleep well overnight. He did not wear his CPAP and I encouraged him to use it moving forward. His last bowel movement was 07/08 and he thinks he will need to go today. He denies dyspnea, chest pain, and palpitations. He denies nausea and vomiting. He denies abdominal pain. He denies dizziness, lightheadedness, and headaches. He is tolerating his diet. He denies subjective fever and chills. He denies numbness and tingling. Review of Systems Review of Systems: All systems reviewed & are unremarkable except as noted in HPI and below Exam Narrative: Exam Narrative: General: Very pleasant, morbidly obese, well-developed 69 y.o. gentleman lying semi-recumbent, comfortable and in no acute distress. HEENT: Normocephalic and atraumatic. Oral mucosa moist. Crowded oropharynx. Neck: Large neck circumference. Supple. Cardiac: Regular rate and rhythm. S1 and S2 normal. Lungs: Lungs are clear to auscultation bilaterally. Abdomen: Bowel sounds active. Abdomen is obese, protuberant, soft, non-distended, and non-tender. Musculoskeletal: ROM to l
[2020-07-10 14:00] VITALS: BP 130/90; PULSE 74; RESP 20; TEMP 37.1; O2SAT 96
[2020-07-10 21:15] VITALS: BP 118/62; PULSE 70; RESP 20; TEMP 36.7; O2SAT 95
[2020-07-11 02:18] VITALS: PULSE 81; RESP 23; O2SAT 95
[2020-07-11] MEDS: ceFAZolin 2 GM/D5W 50 ML 2 GM/50 ML BAG IVPB ×3 (02:24→17:35)
[2020-07-11] MEDS: LEVOTHYROXINE SODIUM 150 MCG TABLET PO (05:58)
[2020-07-11 06:00] VITALS: BP 145/76; PULSE 79; RESP 20; TEMP 36.9; O2SAT 96
[2020-07-11 06:00] LABS: Basophils Percent Auto 0.6 % (0.2-1.2); Eosinophils Absolute Auto 0.3 K/mm3 (0-0.3); Eosinophils Percent Auto 4.2 % (0-4.4); Hematocrit 34.5 % (42.0-52.0); Hemoglobin 11.4 g/dL (14.0-18.0); Immature Granulocyte Absolute 0.02 K/mm3 (0.00-0.031); Immature Granulocyte Percent A 0.3 % (0-0.5); Lymphocytes Absolute Auto 0.98 K/mm3 (0.9-3.2); Lymphocytes Percent Auto 14.3 % (18.3-44.2); Mean Corpuscular Hemoglobin 28.3 pg (26-34); Mean Corpuscular Volume 85.6 fl (80-100); Mean Platelet Volume 11.9 fl (7.4-10.4); Monocytes Absolute Auto 0.7 K/mm3 (0.1-0.6); Neutrophils Absolute Auto 4.9 K/mm3 (1.3-6.7); Neutrophils Percent Auto 70.6 % (45.5-73.1); Platelet Count Result 158 k/mm3 (150-375); Red Blood Count 4.03 M/mm3 (4.6-6.20); Red Cell Distribution Width 12.3 % (11.5-14.5); White Blood Count 6.9 K/mm3 (4.5-10.0)
[2020-07-11 06:08] LABS: Alanine Aminotransferase 9 U/L (4-50); Albumin Level 3.5 g/dL (3.5-5.1); Alkaline Phosphatase 62 U/L (38-126); Anion Gap 6 mmol/L (8-16); Aspartate Amino Transferase 19 U/L (17-59); Bilirubin,Total 0.3 mg/dL (0.2-1.3); Blood Urea Nitrogen 13 mg/dL (9-20); Calcium 8.6 mg/dL (8.4-10.2); Carbon Dioxide 30 mmol/L (22-30); Chloride 103 mmol/L (98-107); Estimated CRCL calculation 115 ml/min; Estimated Glomerular Filt Rate > 60; Glucose 102 mg/dL (75-110); Potassium 3.9 mmol/L (3.4-5.0); Sodium 139 mmol/L (137-145)
[2020-07-11] MEDS: amLODIPine BESYLATE 2.5 MG TABLET PO (09:09)
[2020-07-11] MEDS: MELOXICAM 7.5 MG TABLET PO (09:09)
[2020-07-11] MEDS: allopurinoL 100 MG TABLET PO (09:09)
[2020-07-11] MEDS: DOCUSATE SODIUM 100 MG CAPSULE PO ×2 (09:09→21:19)
[2020-07-11] MEDS: PANTOPRAZOLE 40 MG TABLET PO (09:10)
[2020-07-11] MEDS: PRAVASTATIN SODIUM 20 MG TABLET 40 MG PO (09:10)
--- NOTE | 2020-07-11 10:31 | PM.PNORT ---
Progress Note: A&P Assessment and Plan (1) Prepatellar bursitis: Qualifiers: Laterality: left Qualified Code(s): M70.42 - Prepatellar bursitis, left knee Code(s): M70.40 - Prepatellar bursitis, unspecified knee Status: Acute Assessment and Plan: Postoperative day 3, Left patellar bursitis debridement. Wound VAC in place and functioning. Repeat cultures= Early results with corynebacterium. Appreciate plan from Infectious Disease. Continue IV antibiotics today. watch for final results of culture. Plan for wound VAC dressing change tomorrow. Subjective Subjective Date/Time Seen: 07/11/20 10:31 Patient awake and alert, up in chair. No new complaints. Exam Const: General: comfortable and no acute distress HENMT: Mouth: Yes moist mucous membranes Eyes: General: appearance normal, both eyes and all related structures Neck: Neck: supple and no JVD Resp: Effort & Inspection: normal respiratory effort Cardio: Rate: regular rate Rhythm: regular rhythm GI: Inspection: non-distended GI Palp: Yes Soft to palpation and No Tenderness to palpation present (GI) Skin: Other: Wound VAC dressing applied to left knee with good suction. AROM/PROM of the left knee without pain. Good capillary refill in toes. Good sensation light touch. Negative Homans sign. Neuro: General: gait normal Cognition (Neuro): normal cognition Speech: normal speech Extrem: Left lower extremity: knee Details: abnormal to inspection Details: with a suprapatellar bulge, tenderness Location: of the patella, swelling Location: of the pre-patellar area and abnormal ROM (limitations but no pain ) Other: see skin assessment for left knee assessment. Psych: Mental Status: mental status grossly normal Affect: normal affect Objective Data Vital Signs Vital Signs: Vital Signs - 24 hr 07/10/20 14:00 07/10/20 21:15 07/11/20 02:18 Temperature 98.8 F 98.1 F Pulse Rate 74 70 81 Respiratory Rate 20 20 23 H Blood Pressure 130/90 118/62 Pulse Oximetry 96 95 95 07/11/20 06:00 Temperature 98.4 F Pulse Rate 79 Respiratory Rate 20 Blood Pressure 145/76 H Pulse Oximetry 96 Intake/Output Intake/Output: Intake & Output 07/08/20 07/09/20 07/10/20 07/11/20 23:59 23:59 23:59 23:59 Intake Total 650 3070 2440 350 Output Total 3350 2450 1000 Balance 650 -280 -10 -650 Meds/Results Medications: Active Medications Generic Name Dose Route Start Last Admin Trade Name Freq PRN Reason Stop Dose Admin Hydrocodone Bitart/Acetaminophen 1 tab 07/08/20 17:24 Hydrocodone/Acetaminophen (*Crx) 7.5-325 Mg Tablet PO Q3H PRN Pain Rated 4-6 Allopurinol 100 mg 07/09/20 09:00 07/11/20 09:09 Allopurinol 100 Mg Tablet PO 100 mg DAILY ZAHRA Administration Amlodipine Besylate 2.5 mg 07/09/20 09:00 07/11/20 09:09 Amlodipine Besylate 2.5 Mg Tablet PO 2.5 mg DAILY ZAHRA Administration Aspirin 325 mg 07/08/20 21:00 07/10/20 21:09 Aspirin 325 Mg Enteric Tablet PO 325 mg Q12HR ZAHRA Administration Diazepam 5 mg 07/08/20 17:24 Diazepam (*Crx) 5 Mg Tablet PO Q8H PRN Muscle Spasm Docusate Sodium 100 mg 07/08/20 21:00 07/11/20 09:09 Docusate Sodium 100 Mg Capsule PO 100 mg Q12HR ZAHRA Administration Cefazolin Sodium 2 gm in 50 mls @ 100 mls/hr 07/09/20 18:00 07/11/20 06:02 Ancef 2 Gm/D5w 50 Ml IVPB Infused Q8H ZAHRA Infusion Levothyroxine Sodium 150 mcg 07/09/20 06:30 07/11/20 05:58 Levothyroxine Sodium 150 Mcg Tablet PO 150 mcg DAILY@0630 ZAHRA Administration Magnesium Hydroxide 30 ml 07/08/20 17:24 Magnesium Hydroxide Susp 30 Ml Udc PO BID PRN Constipation Meloxicam 7.5 mg 07/09/20 09:00 07/11/20 09:09 Meloxicam 7.5 Mg Tablet PO 7.5 mg DAILY ZAHRA Administration Morphine Sulfate 3 mg 07/08/20 17:24 Morphine Sulfate (*Crx) 4 Mg/Ml Inj IV PUSH Q3H PRN Pain Rated 7-10 Ondansetron HCl 4 mg 10
[2020-07-11] MEDS: ASPIRIN 325 MG ENTERIC TABLET PO ×2 (10:34→21:19)
--- NOTE | 2020-07-11 10:50 | PM.IMPN ---
Progress Note: A&P Assessment and Plan (1) Prepatellar bursitis: Qualifiers: Laterality: left Qualified Code(s): M70.42 - Prepatellar bursitis, left knee Code(s): M70.40 - Prepatellar bursitis, unspecified knee Status: Acute Assessment and Plan: He is s/p incision and drainage with debridement of the prepatellar bursa by Dr. Miguel 07/08/20. He is doing very well post-operatively. Wound vac is in place. Gram stain from 07/08/20 demonstrates WBC with no organisms. Initial anaerobic wound culture demonstrates WBC with no organisms visualized and aerobic wound culture demonstrates scant growth of corynebacterium. Wound culture from 06/01/20 demonstrated group B strep. Infectious disease recommends IV cefazolin through 07/11 and then dicloxacillin for 2 additional weeks. Management and post-op care including DVT prophylaxis, wound care, weight bearing, discharge disposition per orthopedic surgery. Plan for wound vac change tomorrow. (2) Gout: Code(s): M10.9 - Gout, unspecified Status: Acute Assessment and Plan: Continue allopurinol. (3) Hyperglycemia: Code(s): R73.9 - Hyperglycemia, unspecified Status: Acute Assessment and Plan: Fasting blood sugars were elevated on review of prior labs up to 157. Hemoglobin A1c is 5.4%. Lifestyle intervention to prevent glucose intolerance is recommended including weight loss with diet intervention and exercise. Continue to monitor on daily labs. (4) Hyperlipidemia: Code(s): E78.5 - Hyperlipidemia, unspecified Status: Chronic Assessment and Plan: LFTs are within normal limits. Continue pravastatin. (5) Hypertension: Code(s): I10 - Essential (primary) hypertension Status: Chronic Assessment and Plan: Blood pressures were reviewed and are reasonably controlled. Most recent BP reading is 145/76. Continue amlodipine. Continue to monitor and adjust treatment as necessary. (6) MIGNON (obstructive sleep apnea): Code(s): G47.33 - Obstructive sleep apnea (adult) (pediatric) Status: Chronic Assessment and Plan: Continue CPAP titrated to home settings while inpatient. (7) Hypothyroidism: Code(s): E03.9 - Hypothyroidism, unspecified Status: Chronic Assessment and Plan: TSH is 0.842. Continue levothyroxine. (8) Morbid obesity: Code(s): E66.01 - Morbid (severe) obesity due to excess calories Status: Acute Assessment and Plan: I discussed the importance of weight loss on his overall health. He needs to implement calorie restriction and exercise for weight loss. Subjective Date/time seen: 07/11/20 10:50 Mr. Brownlee is a 69 y.o. male who is seen in follow-up for left pre-patellar bursitis s/p incision and drainage 07/08/20. He has no complaints and he is sitting in the chair at the bedside with no acute events overnight. He wore his CPAP last night and tolerated it well. He reports mild discomfort at the wound vac but no pain. He denies subjective fever and chills. He is tolerating his diet. He denies difficulty breathing and chest pain. He has no voiding concerns. He denies leg swelling and calf pain. Review of Systems Review of Systems: All systems reviewed & are unremarkable except as noted in HPI and below Exam Narrative: Exam Narrative: General: Very pleasant, well-developed, obese 69 y.o. male sitting in the chair at the bedside in no acute distress. HEENT: Normocephalic and atraumatic. Corrective lenses in place. Oral mucosa moist. Crowded oropharynx. Neck: Large neck circumference. Supple. Cardiac: Regular rate and rhythm. S1 and S2 normal. Lungs: Lungs are clear to auscultation bilaterally. Abdomen: Bowel sounds active. Abdomen soft, non-tender, and non-distended. Musculoskeletal: ROM to left knee limited due to wound vac in place but no acute joint erythema bilaterally. Prepatel
[2020-07-11 14:00] VITALS: BP 137/62; PULSE 85; RESP 20; TEMP 37.1; O2SAT 96
[2020-07-11] MEDS: MAGNESIUM HYDROXIDE SUSP 30 ML UDC PO (16:14)
[2020-07-11 22:00] VITALS: BP 149/65; PULSE 79; RESP 20; TEMP 36.4; O2SAT 94
[2020-07-11 23:30] VITALS: PULSE 77; RESP 23; O2SAT 96
[2020-07-12 02:37] VITALS: PULSE 77; RESP 22; O2SAT 97
[2020-07-12] MEDS: ceFAZolin 2 GM/D5W 50 ML 2 GM/50 ML BAG IVPB ×2 (03:25→09:02)
[2020-07-12] MEDS: LEVOTHYROXINE SODIUM 150 MCG TABLET PO (05:50)
[2020-07-12 06:00] VITALS: BP 131/76; PULSE 74; RESP 20; TEMP 36.9; O2SAT 95
--- NOTE | 2020-07-12 06:12 | CONS_ITS ---
DATE OF CONSULTATION: 07/09/2020 REASON FOR CONSULTATION: Septic bursitis, left knee. HISTORY OF PRESENT ILLNESS: A 69-year-old male, who reports to me 1 year of chronic prepatellar swelling with nodules that had been asymptomatic. He then developed infected skin cyst over the left knee and was seen in the office and was taken to the operating room on June 01. We had incision and drainage of left prepatellar bursa. His postoperative course was complicated by hematoma about 1 week afterward. He was set up for further surgery, which was accomplished on June 18 with moderate serosanguineous fluid removed and a wound VAC was applied. He is seen in the office 1 week before admission and was improving. However, on the day of admission, erythema and warmth were noted and he was admitted once again. He was taken to the operating room yesterday, where he underwent incision and drainage with debridement once again. Findings included cloudy fluid, adhesions all from the prepatellar space. The patient reports to me he has been on amoxicillin, clavulanic acid for last month without any side effects noted. He denies any other recent antibiotic use. He denies any distinct trauma, but he is on his knees a lot such as painting base boards at his home. He denies any other knee operations in the past. Knows of no vascular compromise left leg. He is on no immunosuppressants. He denies fever, chills, or sweats at home. No diarrhea. PRESENT MEDICATIONS: List reviewed. No immunosuppressants. HABITS: He cut down his smoking about a year ago down to a few cigarettes per day. He reports no tobacco for 2 months. No alcohol. PAST MEDICAL HISTORY: In addition to the above, morbid obesity, hypothyroidism, MIGNON, essential hypertension. His medication list also would indicate gout. REVIEW OF SYSTEMS: Except as above. 14-point review otherwise negative. FAMILY HISTORY: Not pertinent to his present illness. SOCIAL HISTORY: He is . Lives locally. Retired. PHYSICAL EXAMINATION: GENERAL: This is a middle-age male, who appears his actual age. No respiratory distress. VITAL SIGNS: Afebrile since arrival, blood pressure 131/61, pulse 75, respirations 18, oxygen saturation 96% on room air. SKIN: No rashes. Warm and dry. He has no pustular lesions, nodes. No cervical adenopathy. EENT: Pupils equal, round, reactive to light. No conjunctival injection. No icterus. The oropharynx and oral mucosa normal. Teeth in good repair. NECK: Without meningismus, mass. LUNGS: Clear to auscultation and percussion. CHEST: Equal expansion. Normal AP diameter. No indwelling vascular devices. CARDIAC: Regular rate and rhythm. He has no murmurs or gallops. Radial pulses 1+. Dorsalis pedis pulses 1+. ABDOMEN: Morbidly obese, nontender. No masses. EXTREMITIES: Has a wound VAC over the anterior inferior left knee relatively limited in the size of the skin defect about 3 cm. He has mild surrounding erythema. No warmth. No tenderness. He has mildly diminished range of motion of the knee in full flexion, extension. On the right side, he has focal swelling anteriorly of the knee causing abnormal contour without erythema, tenderness, warmth. LABORATORY DATA: Previous fluid culture from his initial operation was group B strep, heavy growth. No blood cultures done. His culture from the operating room yesterday is in process. Gram stain, no organism seen. White count 8.0, after being 10.6 on the 10th, hemoglobin 12.3, which is stable. Platelets 151. His differential is normal. Chemistry panel is normal. CRP is 5.2. No previous values. RADIOLOGY: Knee x-ray not repeated. On 05/27/2020, I personally reviewed his films and it shows soft tissue swelling anteriorly, otherwise
[2020-07-12 06:30] LABS: Hematocrit 37.3 % (42.0-52.0); Hemoglobin 12.3 g/dL (14.0-18.0); Mean Corpuscular Hemoglobin 28.5 pg (26-34); Mean Corpuscular Volume 86.5 fl (80-100); Mean Platelet Volume 11.9 fl (7.4-10.4); Platelet Count Result 171 k/mm3 (150-375); Red Blood Count 4.31 M/mm3 (4.6-6.20); Red Cell Distribution Width 12.5 % (11.5-14.5); White Blood Count 8.3 K/mm3 (4.5-10.0)
[2020-07-12 06:44] LABS: Estimated CRCL calculation 115 ml/min; Estimated Glomerular Filt Rate > 60
--- NOTE | 2020-07-12 08:37 | PM.PNORT ---
Progress Note: A&P Assessment and Plan (1) Prepatellar bursitis: Qualifiers: Laterality: left Qualified Code(s): M70.42 - Prepatellar bursitis, left knee Code(s): M70.40 - Prepatellar bursitis, unspecified knee Status: Acute Assessment and Plan: POD #4: Left Prepatellar Bursitis Debridement Wound VAC in place and functioning well. Change today planned. [facility] wound nurse consulted. Appreciate ID recommendations. Plan for transition to orals x2 weeks as of today per consult. Awaiting final culture results at this time. WBAT LLE. Elevate LLE. Ice as needed to knee. Protect skin. Appreciate Medicine input. Dispo: Home with Home Health for wound VAC changes. Will follow in outpatient wound clinic 1x weekly. (2) Smoking: Code(s): F17.200 - Nicotine dependence, unspecified, uncomplicated Status: Acute Assessment and Plan: Reiterated importance of continued smoking cessation for optimal wound healing as an outpatient, verbalized understanding. Subjective Subjective Date/Time Seen: 07/12/20 08:37 Patient awake. No new complaints. Pain well controlled. Awaiting wound VAC change. Review of Systems Constitutional: Constitutional: Reports no additional constitutional complaints, Denies chills, Denies fever(s) and Denies weakness Eyes: Eyes: Denies change in vision ENT: Reports Normal hearing present and Denies headache(s) Cardiovascular: Cardiovascular: Denies chest pain and Denies dyspnea Respiratory: Respiratory: Denies cough, Denies dyspnea and Denies wheezing Gastrointestinal: Gastrointestinal: Denies constipation, Denies diarrhea, Denies nausea and Denies vomiting Genitourinary: Genitourinary: Denies hematuria, Denies dysuria and Denies urinary urgency Musculoskeletal: Musculoskeletal: Reports as per HPI Integumentary/Breasts: Skin/Breast: Reports as per HPI Neurologic: Reports as per HPI, Denies numbness, Denies tingling and Denies weakness Psychiatric: Psychiatric: Reports no additional psychiatric complaints Endocrine: Endocrine: Reports no additional endocrine complaints and Denies fatigue Hematologic/Lymphatic: Hematologic/Lymphatic: Reports no additional hematologic/lymphatic complaints Allergic/Immunologic: Allergic/Immunologic: Reports no additional allergic/immunologic complaints Exam Const: General: comfortable and no acute distress HENMT: Mouth: Yes moist mucous membranes Eyes: General: appearance normal, both eyes and all related structures Neck: Neck: supple and no JVD Resp: Effort & Inspection: normal respiratory effort Cardio: Rate: regular rate Rhythm: regular rhythm GI: Inspection: non-distended GI Palp: Yes Soft to palpation and No Tenderness to palpation present (GI) Skin: Other: Wound VAC dressing applied to left knee with good suction. AROM/PROM of the left knee without pain. Good capillary refill in toes. Good sensation light touch. Negative Homans sign. Neuro: General: gait normal Cognition (Neuro): normal cognition Speech: normal speech Extrem: Left lower extremity: knee Details: abnormal to inspection Details: with a suprapatellar bulge, tenderness Location: of the patella, swelling Location: of the pre-patellar area and abnormal ROM (limitations but no pain ) Other: see skin assessment for left knee assessment. Psych: Mental Status: mental status grossly normal Affect: normal affect Objective Data Vital Signs Vital Signs: Vital Signs - 24 hr 07/11/20 14:00 07/11/20 22:00 07/11/20 23:30 Temperature 37.1 C 36.4 C Pulse Rate 85 79 77 Respiratory Rate 20 20 23 H Blood Pressure 137/62 149/65 H Pulse Oximetry 96 94 96 07/12/20 02:37 07/12/20 06:00 Temperature 36.9 C Pulse Rate 77 74 Respiratory Rate 22 H 20 Blood Pressure 131/76 Pulse Oximetry 97 95 Intake/Output Intake/Output: Intake & Output 07/09/20 07/10/20 07/11/20 07/12/20 23:59 23:59 23:59 23:59 Intake Total 3070 24
[2020-07-12] MEDS: allopurinoL 100 MG TABLET PO (09:03)
[2020-07-12] MEDS: amLODIPine BESYLATE 2.5 MG TABLET PO (09:03)
[2020-07-12] MEDS: PANTOPRAZOLE 40 MG TABLET PO (09:04)
[2020-07-12] MEDS: DOCUSATE SODIUM 100 MG CAPSULE PO ×2 (09:04→20:11)
[2020-07-12] MEDS: MELOXICAM 7.5 MG TABLET PO (09:04)
[2020-07-12] MEDS: PRAVASTATIN SODIUM 20 MG TABLET 40 MG PO (09:06)
[2020-07-12] MEDS: ASPIRIN 325 MG ENTERIC TABLET PO ×2 (10:27→20:11)
--- NOTE | 2020-07-12 10:42 | PM.IMPN ---
Progress Note: A&P Assessment and Plan (1) Prepatellar bursitis: Qualifiers: Laterality: left Qualified Code(s): M70.42 - Prepatellar bursitis, left knee Code(s): M70.40 - Prepatellar bursitis, unspecified knee Status: Acute Assessment and Plan: He is s/p incision and drainage with debridement of the prepatellar bursa by Dr. Miguel 07/08/20. He is doing very well post-operatively. Wound vac is in place. Gram stain from 07/08/20 demonstrates WBC with no organisms. Initial anaerobic wound culture demonstrates WBC with no organisms visualized and aerobic wound culture demonstrates scant growth of corynebacterium. Wound culture from 06/01/20 demonstrated group B strep. Infectious disease recommends IV cefazolin through 07/11 and then dicloxacillin for 2 additional weeks. Management and post-op care including DVT prophylaxis, wound care, weight bearing, discharge disposition per orthopedic surgery. (2) Gout: Code(s): M10.9 - Gout, unspecified Status: Acute Assessment and Plan: Continue allopurinol. (3) Hyperglycemia: Code(s): R73.9 - Hyperglycemia, unspecified Status: Acute Assessment and Plan: Fasting blood sugars were elevated on review of prior labs up to 157. Hemoglobin A1c is 5.4%. Lifestyle intervention to prevent glucose intolerance is recommended including weight loss with diet intervention and exercise. Continue to monitor on daily labs. (4) Hyperlipidemia: Code(s): E78.5 - Hyperlipidemia, unspecified Status: Chronic Assessment and Plan: LFTs are within normal limits. Continue pravastatin. (5) Hypertension: Code(s): I10 - Essential (primary) hypertension Status: Chronic Assessment and Plan: Blood pressures were reviewed and are reasonably controlled.Continue amlodipine. Continue to monitor and adjust treatment as necessary. (6) MIGNON (obstructive sleep apnea): Code(s): G47.33 - Obstructive sleep apnea (adult) (pediatric) Status: Chronic Assessment and Plan: Continue CPAP titrated to home settings while inpatient. (7) Hypothyroidism: Code(s): E03.9 - Hypothyroidism, unspecified Status: Chronic Assessment and Plan: TSH is 0.842. Continue levothyroxine. (8) Morbid obesity: Code(s): E66.01 - Morbid (severe) obesity due to excess calories Status: Acute Assessment and Plan: I discussed the importance of weight loss on his overall health. He needs to implement calorie restriction and exercise for weight loss. (9) Leg swelling: Code(s): M79.89 - Other specified soft tissue disorders Status: Acute Assessment and Plan: With left calf pain and mild right calf pain. Order venous doppler US. Subjective Date/time seen: 07/12/20 10:42 Mr. Brownlee is a 69 y.o. male who is seen in follow-up for left pre-patellar bursitis s/p incision and drainage 07/08/20. He is doing very well. He had a bowel movement yesterday. He has no other concerns. He denies dyspnea, shortness of breath, palpitations. He is tolerating his diet. He is wearing his CPAP. He denies subjective fever and chills. His pain is well-controlled. Review of Systems Review of Systems: All systems reviewed & are unremarkable except as noted in HPI and below Exam Narrative: Exam Narrative: General: Very pleasant, well-developed, obese 69 y.o. male sitting in his chair at the bedside in no distress. HEENT: Normocephalic and atraumatic. Corrective lenses in place. Oral mucosa moist. Neck: Large neck circumference. Supple. Cardiac: Regular rate and rhythm. S1 and S2 normal. Lungs: Lungs are clear to auscultation bilaterally. Abdomen: Bowel sounds are normoactive. Abdomen is soft, non-tender, and non-distended. Musculoskeletal: ROM to left knee limited due to wound vac in place but no acute joint erythema bilaterally. Prepatella
[2020-07-12 14:00] VITALS: BP 156/69; PULSE 81; RESP 20; TEMP 37.2; O2SAT 97
--- NOTE | 2020-07-12 16:12 | WPDINFPN2 ---
Progress Note: A&P Assessment and Plan (1) Prepatellar bursitis: Qualifiers: Laterality: left Qualified Code(s): M70.42 - Prepatellar bursitis, left knee Code(s): M70.40 - Prepatellar bursitis, unspecified knee Status: Acute Assessment and Plan: 1. Group B Strep. septic bursitis, POD #4 . The Corynbacterium is normal skin jessee, and in this patient is not a pathogen. REC Ancef, switch to dicloxacillin x 13 days more. Ok discharge Subjective Date/time seen: 07/12/20 16:12 Interval history: no new complaints Exam Narrative: Exam Narrative: afebrile Const: General: no acute distress Resp: Effort & Inspection: normal respiratory effort Auscultation: clear to auscultation bilaterally Cardio: Rate: regular rate Rhythm: regular rhythm Heart sounds: no murmurs GI: Inspection: non-distended GI Palp: Yes Soft to palpation and No Tenderness to palpation present (GI) Skin: General skin exam: no rashes or lesions noted Extrem: Other: l anterior inferior knee wound, examined with wound vac off as it was being changed.no pus Objective Data Vital Signs Vital Signs: Vital Signs - 24 hr 07/11/20 22:00 07/11/20 23:30 07/12/20 02:37 Temperature 36.4 C Pulse Rate 79 77 77 Respiratory Rate 20 23 H 22 H Blood Pressure 149/65 H Pulse Oximetry 94 96 97 07/12/20 06:00 07/12/20 14:00 Temperature 36.9 C 37.2 C Pulse Rate 74 81 Respiratory Rate 20 20 Blood Pressure 131/76 156/69 H Pulse Oximetry 95 97 Intake/Output Intake/Output: Intake & Output 07/09/20 07/10/20 07/11/20 07/12/20 23:59 23:59 23:59 23:59 Intake Total 3070 2440 2090 1530 Output Total 3350 2450 1950 1800 Balance -280 -10 140 -270 Meds/Results Medications: Active Medications Generic Name Dose Route Start Last Admin Trade Name Freq PRN Reason Stop Dose Admin Hydrocodone Bitart/Acetaminophen 1 tab 07/08/20 17:24 Hydrocodone/Acetaminophen (*Crx) 7.5-325 Mg Tablet PO Q3H PRN Pain Rated 4-6 Allopurinol 100 mg 07/09/20 09:00 07/12/20 09:03 Allopurinol 100 Mg Tablet PO 100 mg DAILY ZAHRA Administration Amlodipine Besylate 2.5 mg 07/09/20 09:00 07/12/20 09:03 Amlodipine Besylate 2.5 Mg Tablet PO 2.5 mg DAILY ZAHRA Administration Aspirin 325 mg 07/08/20 21:00 07/12/20 10:27 Aspirin 325 Mg Enteric Tablet PO 325 mg Q12HR ZAHRA Administration Diazepam 5 mg 07/08/20 17:24 Diazepam (*Crx) 5 Mg Tablet PO Q8H PRN Muscle Spasm Docusate Sodium 100 mg 07/08/20 21:00 07/12/20 09:04 Docusate Sodium 100 Mg Capsule PO 100 mg Q12HR ZAHRA Administration Cefazolin Sodium 2 gm in 50 mls @ 100 mls/hr 07/09/20 18:00 07/12/20 09:02 Ancef 2 Gm/D5w 50 Ml IVPB 100 mls/hr Q8H ZAHRA Administration Levothyroxine Sodium 150 mcg 07/09/20 06:30 07/12/20 05:50 Levothyroxine Sodium 150 Mcg Tablet PO 150 mcg DAILY@0630 [facility] Administration Magnesium Hydroxide 30 ml 07/08/20 17:24 07/11/20 16:14 Magnesium Hydroxide Susp 30 Ml Udc PO 30 ml BID PRN Administration Constipation Meloxicam 7.5 mg 07/09/20 09:00 07/12/20 09:04 Meloxicam 7.5 Mg Tablet PO 7.5 mg DAILY ZAHRA Administration Morphine Sulfate 3 mg 07/08/20 17:24 Morphine Sulfate (*Crx) 4 Mg/Ml Inj IV PUSH Q3H PRN Pain Rated 7-10 Ondansetron HCl 4 mg 07/08/20 17:24 Ondansetron Inj 4 Mg/2 Ml Vial IV PUSH Q4H PRN Nausea And Vomiting Oxycodone/Acetaminophen 1 tablet 07/08/20 17:24 07/12/20 09:04 Oxycodone/Acetaminophen (*Crx) 5-325 Mg Tablet PO Not Given Q4HR ZAHRA Pantoprazole Sodium 40 mg 07/09/20 09:00 07/12/20 09:04 Pantoprazole 40 Mg Tablet PO 40 mg QAM ZAHRA Administration Pravastatin Sodium 40 mg 07/09/20 09:00 07/12/20 09:06 Pravastatin Sodium 20 Mg Tablet PO 40 mg DAILY ZAHRA Administration Radiology Results: ITS Impressions Venous Doppler Study 07/12/20 13:25 IMPRESSION: 1. No deep venous thr
[2020-07-12] MEDS: DICLOXACILLIN SODIUM 250 MG CAPSULE PO (18:59)
[2020-07-12] MEDS: oxyCODONE/ACETAMINOPHEN (*CRX) 5-325 MG TABLET 1 TABLET PO (20:13)
[2020-07-12 21:50] VITALS: BP 165/71; PULSE 66; RESP 20; TEMP 36.8; O2SAT 98
[2020-07-12 23:05] VITALS: PULSE 69; RESP 22; O2SAT 97
[2020-07-13] MEDS: DICLOXACILLIN SODIUM 250 MG CAPSULE PO ×3 (00:47→12:05)
[2020-07-13 04:12] VITALS: PULSE 68; RESP 20; O2SAT 97
[2020-07-13 05:42] VITALS: BP 153/79; PULSE 74; RESP 20; TEMP 36.9; O2SAT 96
[2020-07-13] MEDS: LEVOTHYROXINE SODIUM 150 MCG TABLET PO (06:23)
[2020-07-13] MEDS: MELOXICAM 7.5 MG TABLET PO (08:37)
[2020-07-13] MEDS: amLODIPine BESYLATE 2.5 MG TABLET PO (08:37)
[2020-07-13] MEDS: allopurinoL 100 MG TABLET PO (08:37)
[2020-07-13] MEDS: PANTOPRAZOLE 40 MG TABLET PO (08:37)
[2020-07-13] MEDS: ASPIRIN 325 MG ENTERIC TABLET PO (08:37)
[2020-07-13] MEDS: PRAVASTATIN SODIUM 20 MG TABLET 40 MG PO (08:37)
[2020-07-13] MEDS: DOCUSATE SODIUM 100 MG CAPSULE PO (08:38)
--- NOTE | 2020-07-13 10:34 | PM.PNORT ---
Progress Note: A&P Assessment and Plan (1) Prepatellar bursitis: Qualifiers: Laterality: left Qualified Code(s): M70.42 - Prepatellar bursitis, left knee Code(s): M70.40 - Prepatellar bursitis, unspecified knee Status: Acute Assessment and Plan: POD #5: Left Prepatellar Bursitis Debridement Wound VAC in place and functioning well. Changed yesterday. Appreciate ID recommendations. Plan for transition to orals x2 weeks upon discharge today. WBAT LLE. Elevate LLE. Ice as needed to knee. Protect skin. Appreciate Medicine input. Dispo: Home with Home Health for wound VAC changes today pending medical clearance. (2) Smoking: Code(s): F17.200 - Nicotine dependence, unspecified, uncomplicated Status: Acute Assessment and Plan: Reiterated importance of continued smoking cessation for optimal wound healing as an outpatient, verbalized understanding. Subjective Subjective Date/Time Seen: 07/13/20 10:35 Review of Systems Review of Systems: All systems reviewed & are unremarkable except as noted in HPI and below Exam Const: General: comfortable and no acute distress HENMT: Mouth: Yes moist mucous membranes Eyes: General: appearance normal, both eyes and all related structures Neck: Neck: supple and no JVD Resp: Effort & Inspection: normal respiratory effort Cardio: Rate: regular rate Rhythm: regular rhythm GI: Inspection: non-distended GI Palp: Yes Soft to palpation and No Tenderness to palpation present (GI) Skin: Other: Wound VAC dressing applied to left knee with good suction. Surrounding cellulitis with improvement. No purulence in chamber. 350mL of serosanguineous drainage in the chamber s/p wound VAC change yesterday. AROM/PROM of the left knee without pain. Good capillary refill in toes. Good sensation light touch. Negative Homans sign. Neuro: General: gait normal Cognition (Neuro): normal cognition Speech: normal speech Extrem: Left lower extremity: knee Details: abnormal to inspection Details: with a suprapatellar bulge, tenderness Location: of the patella, swelling Location: of the pre-patellar area and abnormal ROM (limitations but no pain ) Other: see skin assessment for left knee assessment. Psych: Mental Status: mental status grossly normal Affect: normal affect Objective Data Vital Signs Vital Signs: Vital Signs - 24 hr 07/12/20 14:00 07/12/20 21:50 07/12/20 23:05 Temperature 37.2 C 36.8 C Pulse Rate 81 66 69 Respiratory Rate 20 20 22 H Blood Pressure 156/69 H 165/71 H Pulse Oximetry 97 98 97 07/13/20 04:12 07/13/20 05:42 Temperature 36.9 C Pulse Rate 68 74 Respiratory Rate 20 20 Blood Pressure 153/79 H Pulse Oximetry 97 96 Intake/Output Intake/Output: Intake & Output 07/10/20 07/11/20 07/12/20 07/13/20 23:59 23:59 23:59 23:59 Intake Total 2440 2090 2970 1280 Output Total 2450 1950 2900 1050 Balance -10 140 70 230 Meds/Results Medications: Active Medications Generic Name Dose Route Start Last Admin Trade Name Freq PRN Reason Stop Dose Admin Hydrocodone Bitart/Acetaminophen 1 tab 07/08/20 17:24 Hydrocodone/Acetaminophen (*Crx) 7.5-325 Mg Tablet PO Q3H PRN Pain Rated 4-6 Allopurinol 100 mg 07/09/20 09:00 07/13/20 08:37 Allopurinol 100 Mg Tablet PO 100 mg DAILY ZAHRA Administration Amlodipine Besylate 2.5 mg 07/09/20 09:00 07/13/20 08:37 Amlodipine Besylate 2.5 Mg Tablet PO 2.5 mg DAILY ZAHRA Administration Aspirin 325 mg 07/08/20 21:00 07/13/20 08:37 Aspirin 325 Mg Enteric Tablet PO 325 mg Q12HR ZAHRA Administration Diazepam 5 mg 07/08/20 17:24 Diazepam (*Crx) 5 Mg Tablet PO Q8H PRN Muscle Spasm Dicloxacillin Sodium 250 mg 07/12/20 18:00 07/13/20 07:21 Dicloxacillin Sodium 250 Mg Capsule PO 07/25/20 18:01 250 mg Q6HR ZAHRA Administration Docusate Sodium 100 mg 07/08/20 21:00 07/13/20 08:38 Docusate Sodium 100 Mg Capsu
--- NOTE | 2020-07-13 10:47 | PM.IMPN ---
Progress Note: A&P Assessment and Plan (1) Prepatellar bursitis: Qualifiers: Laterality: left Qualified Code(s): M70.42 - Prepatellar bursitis, left knee Code(s): M70.40 - Prepatellar bursitis, unspecified knee Status: Acute Assessment and Plan: He is s/p incision and drainage with debridement of the prepatellar bursa by Dr. Miguel 07/08/20. He is doing very well post-operatively. Wound vac is in place. Gram stain from 07/08/20 demonstrates WBC with no organisms. Initial anaerobic wound culture demonstrates WBC with no organisms visualized and aerobic wound culture demonstrates scant growth of corynebacterium, felt to be normal skin jessee. Wound culture from 06/01/20 demonstrated group B strep. He received 5 days of IV Ancef and was transitioned to PO dicloxacillin on 07/12. Will continue dicloxacillin 250 mg PO q6 for 2 weeks per ID recommendations. Management and post-op care including DVT prophylaxis, wound care, weight bearing, and discharge disposition per orthopedic surgery. (2) Gout: Code(s): M10.9 - Gout, unspecified Status: Acute Assessment and Plan: Continue allopurinol. (3) Hyperglycemia: Code(s): R73.9 - Hyperglycemia, unspecified Status: Acute Assessment and Plan: Fasting blood sugars were elevated on review of labs prior to admission up to 157. Hemoglobin A1c is 5.4%. Fasting blood sugars have been well-controlled throughout this admission. Lifestyle intervention to prevent glucose intolerance is recommended including weight loss with diet intervention and exercise. Follow up with PCP. (4) Hyperlipidemia: Code(s): E78.5 - Hyperlipidemia, unspecified Status: Chronic Assessment and Plan: LFTs are within normal limits. Continue pravastatin. (5) Hypertension: Code(s): I10 - Essential (primary) hypertension Status: Chronic Assessment and Plan: Blood pressures were reviewed and are reasonably controlled. Continue amlodipine. Continue to monitor and adjust treatment as necessary. (6) MIGNON (obstructive sleep apnea): Code(s): G47.33 - Obstructive sleep apnea (adult) (pediatric) Status: Chronic Assessment and Plan: Continue CPAP titrated to home settings while inpatient. Continue CPAP at home upon discharge. (7) Hypothyroidism: Code(s): E03.9 - Hypothyroidism, unspecified Status: Chronic Assessment and Plan: TSH is 0.842. Continue levothyroxine. (8) Leg swelling: Code(s): M79.89 - Other specified soft tissue disorders Status: Acute Assessment and Plan: Lower extremities with 1+ edema. Patient complained of bilateral calf pain on 07/12, therefore venous dopplers performed, both negative for DVT. No calf pain today with 1+ edema, likely secondary to dependency. (9) History of nicotine use: Code(s): Z87.891 - Personal history of nicotine dependence Status: Acute Assessment and Plan: Patient reports he has not smoked in 1 month. History of smoking 1 ppd for 10 years. Congratulated him on smoking cessation and reinforced need for ongoing cessation. Educated that nicotine use impairs wound healing. Patient understands and agrees. (10) Morbid obesity: Code(s): E66.01 - Morbid (severe) obesity due to excess calories Status: Acute Assessment and Plan: The importance of weight loss for overall health was discussed. He needs to implement calorie restriction and exercise for weight loss. Additional Plan Plan for discharge home today per orthopedic surgery. Thank you for allowing me to participate in this patient's care. Subjective Date/time seen: 07/13/20 10:47 Interval history: Date of service: 07/13/2020 Kvng Brownlee is a 69 year old male with a history of hypothryoidism, hypertension, and hyperlipidemia who is seen in follow up for septic bursitis s/p incision and drainage on
[2020-07-13 14:00] VITALS: BP 156/82; PULSE 68; RESP 18; TEMP 37; O2SAT 97
--- NOTE | 2020-07-23 15:56 | PM.DS ---
DS: Admitting Diagnosis Admitting Diagnosis Admitting Diagnosis: left infected prepatella bursa DS: Discharge Diagnosis Discharge Diagnosis (1) Prepatellar bursitis: Qualifiers: Laterality: left Qualified Code(s): M70.42 - Prepatellar bursitis, left knee Code(s): M70.40 - Prepatellar bursitis, unspecified knee Status: Acute Assessment and Plan: POD #5: Left Prepatellar Bursitis Debridement Wound VAC in place and functioning well. Changed yesterday. Appreciate ID recommendations. Plan for transition to orals x2 weeks upon discharge today. WBAT LLE. Elevate LLE. Ice as needed to knee. Protect skin. Appreciate Medicine input. Dispo: Home with Home Health for wound VAC changes today pending medical clearance. (2) Smoking: Code(s): F17.200 - Nicotine dependence, unspecified, uncomplicated Status: Acute Assessment and Plan: Reiterated importance of continued smoking cessation for optimal wound healing as an outpatient, verbalized understanding. DS: Summary Hospital Course Reason for hospitalization: infected left prepatellar bursitis Hospital Course: 69-year-old male was readmitted to [facility] after evaluation in our outpatient clinic for a recurrent infected prepatellar bursitis. He had previously been undergoing care in the [facility] wound clinic as well as home health for wound VAC dressing changes three times weekly. Upon exam in our outpatient clinic, he was found to have increased swelling/redness and warmth to the anterior proximal tibia, extending distally as well. Drainage was purulent in nature, wound cultures obtained. He was admitted for I and D of the left prepatellar bursa by Dr. Miguel. Infectious Disease was consulted as well as the hospitalist team. The patient remain inpatient for 5 days. Following wound cultures, it was determined by Infectious Disease the patient be placed on oral antibiotics for a 14 day course. a new wound VAC was applied. The patient will follow up in our outpatient Wound Clinic once weekly. We will defer antibiotic treatment to Infectious Disease. The patient was discharged home with home health for wound VAC dressing changes 2 times weekly. Time spent discussing smoking cessation with patient: 3 to 10 minutes Status at Discharge Cognitive/behavioral status at discharge: stable Functional status at discharge: independent ambulation Overall status at discharge: patient is progressing back to baseline Time Spent with Patient Time attestation: Total time spent providing and/or coordinating discharge services: Exam Const: General: comfortable and no acute distress HENMT: Mouth: Yes moist mucous membranes Eyes: General: appearance normal, both eyes and all related structures Neck: Neck: supple and no JVD Resp: Effort & Inspection: normal respiratory effort Cardio: Rate: regular rate Rhythm: regular rhythm GI: Inspection: non-distended GI Palp: Yes Soft to palpation and No Tenderness to palpation present (GI) Neuro: General: gait normal Cognition (Neuro): normal cognition Speech: normal speech Extrem: Left lower extremity: knee Details: abnormal to inspection Details: with a suprapatellar bulge, tenderness Location: of the patella, swelling Location: of the pre-patellar area and abnormal ROM (limitations but no pain ) Other: Wound VAC dressing applied to left knee with good suction. Surrounding cellulitis with improvement. No purulence in chamber. 350mL of serosanguineous drainage in the chamber s/p wound VAC change yesterday. AROM/PROM of the left knee without pain. Good capillary refill in toes. Good sensation light touch. Negative Homans sign. Psych: Mental Status: mental status grossly normal Affect: normal affect DS: Data Data Completed and Pending Labs on day of discharge: Preliminary micro results at discharge 07/08/20 15:35 Aerobic Culture - Preliminary Knee Left Corynebacterium species Dis
== END 2020-07-13 16:03 | disposition home health service (06) | DRG 501 ==
LOC: ANH3MEDSUR 17:27
PROVIDERS: Physician Assistant; Admitting Provider Orthopaedic Surgery; PCP Family Medicine; Visit Provider Nurse Practitioner Family
PROC: 0MBP0ZZ Excision of Left Knee Bursa and Ligament, Open Approach (ICD-10-PCS; principal; 2020-07-08 15:00)
DX: M71.162 Other infective bursitis, left knee (principal); Z68.41 Body mass index [BMI] 40.0-44.9, adult; Z23 Encounter for immunization; B96.89 Other specified bacterial agents as the cause of diseases classified elsewhere; R73.9 Hyperglycemia, unspecified; G47.33 Obstructive sleep apnea (adult) (pediatric); E78.5 Hyperlipidemia, unspecified; I10 Essential (primary) hypertension; E03.9 Hypothyroidism, unspecified; M79.89 Other specified soft tissue disorders; M1A.9XX1 Chronic gout, unspecified, with tophus (tophi); E66.01 Morbid (severe) obesity due to excess calories; D64.9 Anemia, unspecified; M19.90 Unspecified osteoarthritis, unspecified site; Z87.891 Personal history of nicotine dependence
CPT/HCPCS: 36415; 80048; 80053; 82565; 83036; 84443; 85025; 85027; 86140; 87070; 87075; 87077; 87205; 90471; 90653; 93970; A9270; G0008; J0330; J0690; J1885; J2250; J2405; J2704; J3010; J3370; J7120

== ENCOUNTER 2020-09-10 07:33 | Outpatient (RCR) | payer MEDICARE, SELFPAY ==
[2020-06-15 08:00] VITALS: BMI 35.9
--- NOTE | 2020-06-15 09:45 | PM.IMHP ---
H&P: HPI History of Present Illness Date/Time: 06/15/20 09:45 Chief complaint: left knee open wound with wound vac application Narrative: Kvng Brownlee is a 69 year old male who presents to [facility] wound clinic today s/p left I&D prepatella bursa on 06/01/[address] Miguel which was then complicated by a postoperative hematoma. He was evaluated in our outpatient orthopedic clinic last week and was found to have a draining hematoma by Dr. Miguel. He denies fever, chills, night sweats, nausea, vomiting or diarrhea. No purulent drainage from the wound at this time. He continues to require 1x daily dressing changes due to copious amounts of drainage. Dr. Miguel referred the patient to the [facility] wound clinic for wound VAC application to the prepatella space. Review of Systems Constitutional: Constitutional: Denies chills, Denies fatigue, Denies night sweats and Denies weakness Eyes: Eyes: Denies blurry vision and Denies photophobia ENT: Reports system reviewed and no additional complaints, except as documented and Reports Normal hearing present Cardiovascular: Cardiovascular: Denies chest pain, Denies diaphoresis, Denies leg ulcers and Denies dyspnea on exertion Respiratory: Respiratory: Reports no additional respiratory complaints, Denies cough and Denies dyspnea on exertion Gastrointestinal: Gastrointestinal: Reports no additional gastrointestinal complaints, Denies abdominal pain, Denies constipation, Denies nausea and Denies vomiting Genitourinary: Genitourinary: Reports no additional male genitourinary complaints, Denies hematuria and Denies urinary frequency Musculoskeletal: Musculoskeletal: Reports no additional musculoskeletal complaints and Reports as per HPI Integumentary/Breasts: Skin/Breast: Reports as per HPI Neurologic: Reports system reviewed and no additional complaints, except as documented and Reports Normal hearing present Psychiatric: Psychiatric: Reports no additional psychiatric complaints Endocrine: Endocrine: Reports no additional endocrine complaints, Denies change in body appearance, Denies excessive sweating, Denies polyphagia, Denies polydipsia and Denies polyuria PMFSH Past Medical History Medical History Anemia Elevated prostate specific antigen (PSA) Gout Hyperglycemia Hyperlipidemia Hypertension Hypothyroidism MIGNON (obstructive sleep apnea) Osteoarthritis Pulmonary fibrosis Tobacco abuse Surgical History Surgical History H/O ventral hernia repair Social History Social History Smoking packs per day: 1 Smoking cigarettes per day: 20.0 Years smoked: 10 Smoking pack-years: 10.00 Smoking status: Current every day smoker Tobacco type: cigarettes Smoking end date: 10/01/17 Alcohol intake: never Substance use: never Substance use type: does not use Gender identity (if verbalized by the patient): Male Spiritual care concerns: No Meds Home Medications and Allergies Home Medications Medication Instructions Recorded Confirmed Type levothyroxine 150 mcg tablet 150 mcg PO DAILY #90 tablet 02/24/20 06/10/20 Rx meloxicam 7.5 mg tablet 7.5 mg PO DAILY #90 tablet 02/24/20 06/10/20 Rx allopurinol 100 mg tablet 100 mg PO DAILY #90 tablet 04/28/20 06/10/20 Rx pravastatin 40 mg tablet 40 mg PO DAILY #90 tablet 05/12/20 06/10/20 Rx tiotropium bromide 2.5 2 inhalation INHALATION QAM #4 gm 05/26/20 06/10/20 Rx mcg/actuation mist for inhalation amlodipine 2.5 mg PO DAILY 05/27/20 06/10/20 History hydrocodone-acetaminophen [[place]] 1 tablet PO Q6H PRN #60 tablet NS 06/01/20 06/10/20 Rx amoxicillin 875 mg-potassium 1 tablet PO Q12H #30 tablet 06/03/20 06/10/20 Rx clavulanate 125 mg tablet omeprazole 40 mg capsule,delayed 40 mg PO DAILY #90 cap 06/15/20 Rx release Allergies Allergy/AdvReac Type Severity React
--- NOTE | 2020-06-18 09:50 | PM.IMHP ---
H&P: HPI History of Present Illness Date/Time: 06/18/20 09:50 Chief complaint: left knee open wound with wound vac application Narrative: Kvng Brownlee is a 69 year old male to [facility] wound clinic today s/p left I&D prepatella bursa on 06/01/[address] Miguel which was then complicated by a postoperative hematoma. the patient is now 4 days status post left knee wound VAC application. His wound VAC was also changed by [facility] on Sunday of this week. He has improvement in serosanguineous drainage. He has changed his chamber 1 time. On exam today, only mild drainage from the wound noted. Patient denies fever, chills, night sweats, nausea, vomiting or diarrhea. He is continuing to take his oral antibiotics as scheduled. Review of Systems Constitutional: Constitutional: Denies chills, Denies fatigue, Denies night sweats and Denies weakness Eyes: Eyes: Denies blurry vision and Denies photophobia ENT: Reports system reviewed and no additional complaints, except as documented and Reports Normal hearing present Cardiovascular: Cardiovascular: Denies chest pain, Denies diaphoresis, Denies leg ulcers and Denies dyspnea on exertion Respiratory: Respiratory: Reports no additional respiratory complaints, Denies cough and Denies dyspnea on exertion Gastrointestinal: Gastrointestinal: Reports no additional gastrointestinal complaints, Denies abdominal pain, Denies constipation, Denies nausea and Denies vomiting Genitourinary: Genitourinary: Reports no additional male genitourinary complaints, Denies hematuria and Denies urinary frequency Musculoskeletal: Musculoskeletal: Reports no additional musculoskeletal complaints and Reports as per HPI Integumentary/Breasts: Skin/Breast: Reports as per HPI Neurologic: Reports system reviewed and no additional complaints, except as documented and Reports Normal hearing present Psychiatric: Psychiatric: Reports no additional psychiatric complaints Endocrine: Endocrine: Reports no additional endocrine complaints, Denies change in body appearance, Denies excessive sweating, Denies polyphagia, Denies polydipsia and Denies polyuria [facility] Past Medical History Medical History Anemia Elevated prostate specific antigen (PSA) Gout Hyperglycemia Hyperlipidemia Hypertension Hypothyroidism MIGNON (obstructive sleep apnea) Osteoarthritis Prepatellar bursitis Pulmonary fibrosis Smoking Tobacco abuse Surgical History Surgical History H/O ventral hernia repair Social History Social History Smoking packs per day: 1 Smoking cigarettes per day: 20.0 Years smoked: 10 Smoking pack-years: 10.00 Smoking status: Current every day smoker Tobacco type: cigarettes Smoking end date: 10/01/17 Alcohol intake: never Substance use: never Substance use type: does not use Gender identity (if verbalized by the patient): Male Spiritual care concerns: No Meds Home Medications and Allergies Home Medications Medication Instructions Recorded Confirmed Type levothyroxine 150 mcg tablet 150 mcg PO DAILY #90 tablet 02/24/20 06/15/20 Rx meloxicam 7.5 mg tablet 7.5 mg PO DAILY #90 tablet 02/24/20 06/15/20 Rx allopurinol 100 mg tablet 100 mg PO DAILY #90 tablet 04/28/20 06/15/20 Rx pravastatin 40 mg tablet 40 mg PO DAILY #90 tablet 05/12/20 06/15/20 Rx tiotropium bromide 2.5 2 inhalation INHALATION QAM #4 gm 05/26/20 06/15/20 Rx mcg/actuation mist for inhalation amlodipine 2.5 mg PO DAILY 05/27/20 06/15/20 History hydrocodone-acetaminophen [[place]] 1 tablet PO Q6H PRN #60 tablet NS 06/01/20 06/15/20 Rx amoxicillin 875 mg-potassium 1 tablet PO Q12H #30 tablet 06/03/20 06/15/20 Rx clavulanate 125 mg tablet omeprazole 40 mg capsule,delayed 40 mg PO DAILY #90 cap 06/15/20 06/15/20 Rx release Allergies Allergy/AdvR
--- NOTE | 2020-06-18 09:55 | P.OPB_ITS ---
Procedure Note - Brief Procedure Note - Brief Date of procedure: 06/18/20 Pre-op diagnosis: left knee open wound with wound vac application left pre patella space hematoma. Post-op diagnosis: same Procedure performed: Wound VAC application performed. Description of procedure: Application of wound VAC performed to the left knee prepatellar space. Good section result status post application. Moderate serosanguineous fluid removed from wound. Implants: Wound VAC. Surgeon: FRANCISCO Peterson Life Enrichment Manager: Wound care nurse Estimated blood loss (mL): 0 Tourniquet time (min): 0 IV fluids (mL): 0 Urine output (mL): 0 Packing: Yes ( wound VAC material) Complications: No immediate complications Condition: stable
--- NOTE | 2020-07-08 11:42 | PM.IMHP ---
H&P: HPI History of Present Illness Date/Time: 07/08/20 11:42 Chief complaint: left knee open wound with wound vac application Narrative: Kvng Brownlee is a 69 year old male returns to [facility] wound clinic today s/p left I&D prepatella bursa on 06/01/[address] Miguel which was then complicated by a postoperative hematoma. The patient is now 2 weeks status post left knee wound VAC application. His wound VAC has been changed by home health RN. He has improvement in serosanguineous drainage. On exam today, only mild drainage from the wound noted. Patient denies fever, chills, night sweats, nausea, vomiting or diarrhea. He is continuing to take his oral antibiotics as scheduled. Review of Systems Constitutional: Constitutional: Denies chills, Denies fatigue, Denies night sweats and Denies weakness Eyes: Eyes: Denies blurry vision and Denies photophobia ENT: Reports system reviewed and no additional complaints, except as documented and Reports Normal hearing present Cardiovascular: Cardiovascular: Denies chest pain, Denies diaphoresis, Denies leg ulcers and Denies dyspnea on exertion Respiratory: Respiratory: Reports no additional respiratory complaints, Denies cough and Denies dyspnea on exertion Gastrointestinal: Gastrointestinal: Reports no additional gastrointestinal complaints, Denies abdominal pain, Denies constipation, Denies nausea and Denies vomiting Genitourinary: Genitourinary: Reports no additional male genitourinary complaints, Denies hematuria and Denies urinary frequency Musculoskeletal: Musculoskeletal: Reports no additional musculoskeletal complaints and Reports as per HPI Integumentary/Breasts: Skin/Breast: Reports as per HPI Neurologic: Reports system reviewed and no additional complaints, except as documented and Reports Normal hearing present Psychiatric: Psychiatric: Reports no additional psychiatric complaints Endocrine: Endocrine: Reports no additional endocrine complaints, Denies change in body appearance, Denies excessive sweating, Denies polyphagia, Denies polydipsia and Denies polyuria FOR[facility] Past Medical History Medical History Anemia Elevated prostate specific antigen (PSA) Gout Hyperglycemia Hyperlipidemia Hypertension Hypothyroidism MIGNON (obstructive sleep apnea) Osteoarthritis Prepatellar bursitis Pulmonary fibrosis Smoking Tobacco abuse Surgical History Surgical History H/O ventral hernia repair Social History Social History Smoking packs per day: 1 Smoking cigarettes per day: 20.0 Years smoked: 10 Smoking pack-years: 10.00 Smoking status: Current every day smoker Tobacco type: cigarettes Smoking end date: 10/01/17 Alcohol intake: never Substance use: never Substance use type: does not use Gender identity (if verbalized by the patient): Male Spiritual care concerns: No Meds Home Medications and Allergies Home Medications Medication Instructions Recorded Confirmed Type levothyroxine 150 mcg tablet 150 mcg PO DAILY #90 tablet 02/24/20 06/15/20 Rx meloxicam 7.5 mg tablet 7.5 mg PO DAILY #90 tablet 02/24/20 06/15/20 Rx allopurinol 100 mg tablet 100 mg PO DAILY #90 tablet 04/28/20 06/15/20 Rx pravastatin 40 mg tablet 40 mg PO DAILY #90 tablet 05/12/20 06/15/20 Rx tiotropium bromide 2.5 2 inhalation INHALATION QAM #4 gm 05/26/20 06/15/20 Rx mcg/actuation mist for inhalation hydrocodone-acetaminophen [[place]] 1 tablet PO Q6H PRN #60 tablet NS 06/01/20 06/15/20 Rx omeprazole 40 mg capsule,delayed 40 mg PO DAILY #90 cap 06/15/20 06/15/20 Rx release amlodipine 2.5 mg tablet 2.5 mg PO DAILY #90 tablet 07/01/20 Rx amoxicillin 875 mg-potassium 1 tablet PO Q12H #30 tablet 07/02/20 Rx clavulanate 125 mg tablet Allergies Allergy/AdvReac Type Severity Reaction Status Date / Time No Known
[2020-07-14 13:53] LABS: Hematocrit 39.2 % (42.0-52.0); Hemoglobin 12.9 g/dL (14.0-18.0)
--- NOTE | 2020-07-15 13:12 | PM.PNORT ---
Progress Note: A&P Assessment and Plan (1) Prepatellar bursitis: Qualifiers: Laterality: left Qualified Code(s): M70.42 - Prepatellar bursitis, left knee Code(s): M70.40 - Prepatellar bursitis, unspecified knee Status: Acute Assessment and Plan: The patient is now 1 week status post I&D of left prepatellar bursa and wound VAC application in the operating room by Dr. Miguel. The patient was then evaluated by Infectious Disease physician Dr. alberts and it was determined that the patient would go home with oral antibiotics times 14 days. He was seen in the [place] wound clinic yesterday by Dr. Miguel after complaints of bleeding of the left leg by [employer] [facility] after wound VAC application. Copious amounts of blood were noted at that time the patient underwent a cauterization of the vein by Dr. Miguel. He was then sent home with a dry gauze dressing at that time. He returns today [place] wound [facility] today for re-evaluation. No active bleeding on exam today. Surrounding tissue without redness, warmth, swelling or signs of active infection. No purulence. No malodor. Recommended re-application of the wound VAC at this time. Please see wound clinic notes for exact dimensions of the wound. Patient with confusion regarding oral antibiotics. He thought that he should only be taking them every 12 hours when in fact it was directed that he should take them every 6 hours. Medication list printed for the patient today and his significant other. We discussed the details and depth of antibiotic compliance to prevent recurrent infection. Patient verbalized understanding and understands handout guidelines. Continue weight-bearing as tolerated. At this time we will transition to [place] [facility] wound VAC changes 3 times weekly. We may eventually decreased to 2 times weekly. We will discontinue home health at this time. Patient will follow up on Sunday for wound VAC change. Discussed signs and symptoms of worsening infection or recurrent bleeding that would require immediate intervention in the emergency room. The patient verbalized understanding agrees with plan of care. Subjective Subjective Date/Time Seen: 07/15/20 13:12 Patient presents today [place] [facility] today. He was discharged from the hospital on July 13, 2020. He then returned to the Wound Clinic yesterday due to increased bleeding after a wound VAC application by the [employer]. He was evaluated at that time by Dr. Miguel and was found to have a bleeding vein which required cauterization in the [place] wound clinic. He was then put in a dry gauze dressing and sent home with a planned follow-up for today. On exam today, no evidence of recurrent bleeding. Wound without improvement dimensions at this time. Surrounding tissue without redness, warmth or swelling. Patient denies fever, chills, night sweats, nausea, vomiting or diarrhea. No active bleeding noted. Review of Systems Constitutional: Constitutional: Denies chills, Denies fatigue, Denies night sweats and Denies weakness Eyes: Eyes: Denies blurry vision and Denies photophobia ENT: Reports system reviewed and no additional complaints, except as documented and Reports Normal hearing present Cardiovascular: Cardiovascular: Denies chest pain, Denies diaphoresis, Denies leg ulcers and Denies dyspnea on exertion Respiratory: Respiratory: Reports no additional respiratory complaints, Denies cough and Denies dyspnea on exertion Gastrointestinal: Gastrointestinal: Reports no additional gastrointestinal complaints, Denies abdominal pain, Denies constipation, Denies nausea and Denies vomiting Genitourinary: Genitourinary: Reports no additional male genitourinary complaints, Denies hematuria and Denies urinary frequency Musculoskeletal: Musculoskeletal: Reports no additional musculoskeletal complaints and Reports as per HPI Integumentary/Breasts: Skin/Breast: Reports
--- NOTE | 2020-07-23 13:10 | PM.PNORT ---
Progress Note: A&P Assessment and Plan (1) Prepatellar bursitis: Qualifiers: Laterality: left Qualified Code(s): M70.42 - Prepatellar bursitis, left knee Code(s): M70.40 - Prepatellar bursitis, unspecified knee Status: Acute Assessment and Plan: The patient is now 2 weeks status post I&D of left prepatellar bursa and wound VAC application in the operating room by Dr. Miguel. He returns today to [place] wound clinic today for re-evaluation. No active bleeding on exam today. Surrounding tissue without redness, warmth, swelling or signs of active infection. No purulence. No malodor. Recommended re-application of the wound VAC at this time. Will continue oral antibiotics at this time despite the fact that there are no signs of active infection. Conferred Dr. Miguel who agrees. Continue weight-bearing as tolerated. Patient will follow up on Sunday for wound VAC change. Discussed signs and symptoms of worsening infection or recurrent bleeding that would require immediate intervention in the emergency room. The patient verbalized understanding agrees with plan of care. Subjective Subjective Date/Time Seen: 07/23/20 13:10 Patient presents today [place] [facility] today For follow-up of left knee prepatellar wound. He was discharged from the hospital on July 13, 2020. Wound VAC in place this time. Wound without improvement dimensions at this time but new granulation tissue noted. Surrounding tissue without redness, warmth or swelling. Patient denies fever, chills, night sweats, nausea, vomiting or diarrhea. No active bleeding noted. Review of Systems Constitutional: Constitutional: Denies chills, Denies fatigue, Denies night sweats and Denies weakness Eyes: Eyes: Denies blurry vision and Denies photophobia ENT: Reports system reviewed and no additional complaints, except as documented and Reports Normal hearing present Cardiovascular: Cardiovascular: Denies chest pain, Denies diaphoresis, Denies leg ulcers and Denies dyspnea on exertion Respiratory: Respiratory: Reports no additional respiratory complaints, Denies cough and Denies dyspnea on exertion Gastrointestinal: Gastrointestinal: Reports no additional gastrointestinal complaints, Denies abdominal pain, Denies constipation, Denies nausea and Denies vomiting Genitourinary: Genitourinary: Reports no additional male genitourinary complaints, Denies hematuria and Denies urinary frequency Musculoskeletal: Musculoskeletal: Reports no additional musculoskeletal complaints and Reports as per HPI Integumentary/Breasts: Skin/Breast: Reports as per HPI Neurologic: Reports system reviewed and no additional complaints, except as documented and Reports Normal hearing present Psychiatric: Psychiatric: Reports no additional psychiatric complaints Endocrine: Endocrine: Reports no additional endocrine complaints, Denies change in body appearance, Denies excessive sweating, Denies polyphagia, Denies polydipsia and Denies polyuria Exam Const: General: comfortable and no acute distress HENMT: Mouth: Yes moist mucous membranes Eyes: General: appearance normal, both eyes and all related structures Neck: Neck: supple and no JVD Resp: Effort & Inspection: normal respiratory effort Cardio: Rate: regular rate Rhythm: regular rhythm GI: Inspection: non-distended GI Palp: Yes Soft to palpation and No Tenderness to palpation present (GI) Skin: Other: Wound VAC dressing removed from the left anterior knee. Surrounding tissue without redness, warmth, swelling or signs of active injection. See wound clinic note for exact dimensions. No active bleeding on exam. Wound with tunneling in a circumferential manner. No purulence. No signs of worsening infection. No malodor. Wound VAC dressing reapplied. Active and passive range of motion of the left knee without extreme pain. Neuro: General: gait normal Cognition (Neuro): normal cognitio
--- NOTE | 2020-07-30 09:21 | PM.PNORT ---
Progress Note: A&P Assessment and Plan (1) Prepatellar bursitis: Qualifiers: Laterality: left Qualified Code(s): M70.42 - Prepatellar bursitis, left knee Code(s): M70.40 - Prepatellar bursitis, unspecified knee Status: Acute Assessment and Plan: The patient is now 3 weeks status, 1 day post I&D of left prepatellar bursa and wound VAC application in the operating room by Dr. Miguel. He returns today to [place] wound clinic today for re-evaluation. He has been undergoing wound VAC dressing changes three times weekly in the [facility] wound clinic. Transition was made from black foam to white foam earlier this week with marked improvement in dimension. See physical exam for exact measurements. No signs of active infection at this time. Continue oral antibiotics to completion, renewed last week. Patient will follow up on Sunday for wound VAC change. We will reevaluate in 1 week. Discussed signs and symptoms of worsening infection or recurrent bleeding that would require immediate intervention in the emergency room. The patient verbalized understanding agrees with plan of care. (2) Smoking: Code(s): F17.200 - Nicotine dependence, unspecified, uncomplicated Status: Acute Assessment and Plan: Patient endorses continued smoking cessation. Congratulated him on his success. Encouraged continuation for optimal wound healing. Subjective Subjective Date/Time Seen: 07/30/20 09:21 Patient presents today to [place] wound clinic for follow-up of left knee prepatellar wound. Wound VAC in place this time. Transitioned from black foam to white foam in wound bed by [facility] wound nurses earlier this week. Surrounding tissue without redness, warmth or swelling. Patient denies fever, chills, night sweats, nausea, vomiting or diarrhea. No active bleeding noted. No c/o pain. No signs of infection. Review of Systems Constitutional: Constitutional: Denies chills, Denies fatigue, Denies night sweats and Denies weakness Eyes: Eyes: Denies blurry vision and Denies photophobia ENT: Reports system reviewed and no additional complaints, except as documented and Reports Normal hearing present Cardiovascular: Cardiovascular: Denies chest pain, Denies diaphoresis, Denies leg ulcers and Denies dyspnea on exertion Respiratory: Respiratory: Reports no additional respiratory complaints, Denies cough and Denies dyspnea on exertion Gastrointestinal: Gastrointestinal: Reports no additional gastrointestinal complaints, Denies abdominal pain, Denies constipation, Denies nausea and Denies vomiting Genitourinary: Genitourinary: Reports no additional male genitourinary complaints, Denies hematuria and Denies urinary frequency Musculoskeletal: Musculoskeletal: Reports no additional musculoskeletal complaints and Reports as per HPI Integumentary/Breasts: Skin/Breast: Reports as per HPI Neurologic: Reports system reviewed and no additional complaints, except as documented and Reports Normal hearing present Psychiatric: Psychiatric: Reports no additional psychiatric complaints Endocrine: Endocrine: Reports no additional endocrine complaints, Denies change in body appearance, Denies excessive sweating, Denies polyphagia, Denies polydipsia and Denies polyuria Exam Const: General: comfortable and no acute distress HENMT: Mouth: Yes moist mucous membranes Eyes: General: appearance normal, both eyes and all related structures Neck: Neck: supple and no JVD Resp: Effort & Inspection: normal respiratory effort Cardio: Rate: regular rate Rhythm: regular rhythm GI: Inspection: non-distended GI Palp: Yes Soft to palpation and No Tenderness to palpation present (GI) Skin: Other: Wound VAC dressing removed from the left anterior knee. Wound measures 3.0x1.5x0.7cm, 100% red/pink wound bed. Tunneling to 3 o'clock of 2.5cm and at 7 o'clock to 4.5cm. Surrounding tissue without redness, warmth, swelling or signs of active injection. No
--- NOTE | 2020-08-06 10:16 | PM.PNORT ---
Progress Note: A&P Assessment and Plan (1) Prepatellar bursitis: Qualifiers: Laterality: left Qualified Code(s): M70.42 - Prepatellar bursitis, left knee Code(s): M70.40 - Prepatellar bursitis, unspecified knee Status: Acute Assessment and Plan: 4 weeks s/p I&D of left prepatellar bursa and wound VAC application in the operating room by Dr. Miguel. He returns today to [place] wound clinic today for re-evaluation. He has been undergoing wound VAC dressing changes three times weekly in the [facility] wound clinic. He continues to show marked improvement in dimensions with the use of white foam to both tunnels. See physical exam for exact measurements. No signs of active infection at this time. Continue oral antibiotics to completion, to be completed Sunday. Will renew at that time. Patient will follow up on Sunday in the wound clinic for wound VAC change. Discussed signs and symptoms of worsening infection or recurrent bleeding that would require immediate intervention in the emergency room. The patient verbalized understanding agrees with plan of care. (2) Smoking: Code(s): F17.200 - Nicotine dependence, unspecified, uncomplicated Status: Acute Assessment and Plan: Patient endorses continued smoking cessation. Congratulated him on his success. Encouraged continuation for optimal wound healing. Subjective Subjective Date/Time Seen: 08/06/20 10:16 Patient presents today to [place] wound clinic for follow-up of left knee prepatellar wound. He is now 4 weeks s/p I&D with debridement of left prepatella bursa. Wound VAC in place this time with improvement in dimension. Surrounding tissue without redness, warmth or swelling. Patient denies fever, chills, night sweats, nausea, vomiting or diarrhea. No active bleeding noted. No c/o pain. No signs of infection. He continues to take oral antibiotics without issues. Review of Systems Constitutional: Constitutional: Denies chills, Denies fatigue, Denies night sweats and Denies weakness Eyes: Eyes: Denies blurry vision and Denies photophobia ENT: Reports system reviewed and no additional complaints, except as documented and Reports Normal hearing present Cardiovascular: Cardiovascular: Denies chest pain, Denies diaphoresis, Denies leg ulcers and Denies dyspnea on exertion Respiratory: Respiratory: Reports no additional respiratory complaints, Denies cough and Denies dyspnea on exertion Gastrointestinal: Gastrointestinal: Reports no additional gastrointestinal complaints, Denies abdominal pain, Denies constipation, Denies nausea and Denies vomiting Genitourinary: Genitourinary: Reports no additional male genitourinary complaints, Denies hematuria and Denies urinary frequency Musculoskeletal: Musculoskeletal: Reports no additional musculoskeletal complaints and Reports as per HPI Integumentary/Breasts: Skin/Breast: Reports as per HPI Neurologic: Reports system reviewed and no additional complaints, except as documented and Reports Normal hearing present Psychiatric: Psychiatric: Reports no additional psychiatric complaints Endocrine: Endocrine: Reports no additional endocrine complaints, Denies change in body appearance, Denies excessive sweating, Denies polyphagia, Denies polydipsia and Denies polyuria Exam Const: General: comfortable and no acute distress HENMT: Mouth: Yes moist mucous membranes Eyes: General: appearance normal, both eyes and all related structures Neck: Neck: supple and no JVD Resp: Effort & Inspection: normal respiratory effort Cardio: Rate: regular rate Rhythm: regular rhythm GI: Inspection: non-distended GI Palp: Yes Soft to palpation and No Tenderness to palpation present (GI) Skin: Other: Wound VAC dressing removed from the left anterior knee. Wound measures 3.0x1.5x0.7cm, 100% red/pink wound bed. Tunneling to 3 o'clock of 2.5cm and at 7 o'clock to 2.5cm. Surrounding tissue without redness, warmth, swelling
--- NOTE | 2020-08-13 12:45 | PM.PNORT ---
Progress Note: A&P Assessment and Plan (1) Prepatellar bursitis: Qualifiers: Laterality: left Qualified Code(s): M70.42 - Prepatellar bursitis, left knee Code(s): M70.40 - Prepatellar bursitis, unspecified knee Status: Acute Assessment and Plan: 5 weeks, 1 day s/p I&D of left prepatellar bursa and wound VAC application in the operating room by Dr. Miguel. He returns today to [place] wound clinic today for re-evaluation. He has been undergoing wound VAC dressing changes three times weekly in the [facility] wound clinic. He continues to show marked improvement in dimensions. He was noted to have mild Pseudomonas in the wound bed earlier this week. With the addition of silver gel Pseudomonas has completely resolved. Will continue silver gel at this time. Wound VAC reapplied. Patient to continue oral antibiotics to completion, refill of prescription given on Sunday. Reviewed signs and symptoms of infection to report to the emergency room immediately. Patient verbalized understanding and agrees with plan and cares. (2) Smoking: Code(s): F17.200 - Nicotine dependence, unspecified, uncomplicated Status: Acute Assessment and Plan: Patient endorses continued smoking cessation. Congratulated him on his success. Encouraged continuation for optimal wound healing. Subjective Subjective Date/Time Seen: 08/13/20 12:45 Patient presents today to [place] wound clinic for follow-up of left knee prepatellar wound. He is now 5 weeks, 1 day s/p I&D with debridement of left prepatella bursa. Wound VAC in place this time with improvement in dimension. Surrounding tissue without redness, warmth or swelling. Patient denies fever, chills, night sweats, nausea, vomiting or diarrhea. No active bleeding noted. No c/o pain. No signs of infection. He continues to take oral antibiotics without issues. Review of Systems Constitutional: Constitutional: Denies chills, Denies fatigue, Denies night sweats and Denies weakness Eyes: Eyes: Denies blurry vision and Denies photophobia ENT: Reports system reviewed and no additional complaints, except as documented and Reports Normal hearing present Cardiovascular: Cardiovascular: Denies chest pain, Denies diaphoresis, Denies leg ulcers and Denies dyspnea on exertion Respiratory: Respiratory: Reports no additional respiratory complaints, Denies cough and Denies dyspnea on exertion Gastrointestinal: Gastrointestinal: Reports no additional gastrointestinal complaints, Denies abdominal pain, Denies constipation, Denies nausea and Denies vomiting Genitourinary: Genitourinary: Reports no additional male genitourinary complaints, Denies hematuria and Denies urinary frequency Musculoskeletal: Musculoskeletal: Reports no additional musculoskeletal complaints and Reports as per HPI Integumentary/Breasts: Skin/Breast: Reports as per HPI Neurologic: Reports system reviewed and no additional complaints, except as documented and Reports Normal hearing present Psychiatric: Psychiatric: Reports no additional psychiatric complaints Endocrine: Endocrine: Reports no additional endocrine complaints, Denies change in body appearance, Denies excessive sweating, Denies polyphagia, Denies polydipsia and Denies polyuria Exam Const: General: comfortable and no acute distress HENMT: Mouth: Yes moist mucous membranes Eyes: General: appearance normal, both eyes and all related structures Neck: Neck: supple and no JVD Resp: Effort & Inspection: normal respiratory effort Cardio: Rate: regular rate Rhythm: regular rhythm GI: Inspection: non-distended GI Palp: Yes Soft to palpation and No Tenderness to palpation present (GI) Skin: Other: Wound VAC dressing removed from the left anterior knee. Wound measures 3.0x1.5x0.7cm, 100% red/pink wound bed. Tunneling to 3 o'clock of 2.3cm and at 7 o'clock to 1.0cm. Surrounding tissue without redness, warmth, swelling or signs of active injection.
--- NOTE | 2020-08-20 10:18 | PM.PNORT ---
Progress Note: A&P Assessment and Plan (1) Prepatellar bursitis: Qualifiers: Laterality: left Qualified Code(s): M70.42 - Prepatellar bursitis, left knee Code(s): M70.40 - Prepatellar bursitis, unspecified knee Status: Acute Assessment and Plan: 6 weeks, 1 day s/p I&D of left prepatellar bursa and wound VAC application in the operating room by Dr. Miguel. He returns today to [place] wound clinic today for re-evaluation. He has been undergoing wound VAC dressing changes three times weekly in the [facility] wound clinic. He continues to show marked improvement in dimensions however, today he has hypergranulation tissue. Minimal drainage. We will plan for a wound VAC holiday and to begin Aquacel AG rope to the depths of the wound bed. Continue silver gel. Patient to continue oral antibiotics to completion on Sunday. Follow up with [facility] wound clinic nurses Sunday. Will follow up with patient in 2 weeks. Reviewed signs and symptoms of infection to report to the emergency room immediately. Patient verbalized understanding and agrees with plan and cares. (2) Smoking: Code(s): F17.200 - Nicotine dependence, unspecified, uncomplicated Status: Acute Assessment and Plan: Patient endorses continued smoking cessation. Encouraged continuation for optimal wound healing. Subjective Subjective Date/Time Seen: 08/20/20 10:18 Patient presents today to [place] wound clinic for follow-up of left knee prepatellar wound. He is now 6 weeks, 1 day s/p I&D with debridement of left prepatella bursa. Wound VAC removed. Hypergranulation tissue noted. Surrounding tissue without redness, warmth or swelling. Patient denies fever, chills, night sweats, nausea, vomiting or diarrhea. No active bleeding noted. No c/o pain. No signs of infection. He continues to take oral antibiotics without issues, to be completed this upcoming Sunday. Review of Systems Constitutional: Constitutional: Denies chills, Denies fatigue, Denies night sweats and Denies weakness Eyes: Eyes: Denies blurry vision and Denies photophobia ENT: Reports system reviewed and no additional complaints, except as documented and Reports Normal hearing present Cardiovascular: Cardiovascular: Denies chest pain, Denies diaphoresis, Denies leg ulcers and Denies dyspnea on exertion Respiratory: Respiratory: Reports no additional respiratory complaints, Denies cough and Denies dyspnea on exertion Gastrointestinal: Gastrointestinal: Reports no additional gastrointestinal complaints, Denies abdominal pain, Denies constipation, Denies nausea and Denies vomiting Genitourinary: Genitourinary: Reports no additional male genitourinary complaints, Denies hematuria and Denies urinary frequency Musculoskeletal: Musculoskeletal: Reports no additional musculoskeletal complaints and Reports as per HPI Integumentary/Breasts: Skin/Breast: Reports as per HPI Neurologic: Reports system reviewed and no additional complaints, except as documented and Reports Normal hearing present Psychiatric: Psychiatric: Reports no additional psychiatric complaints Endocrine: Endocrine: Reports no additional endocrine complaints, Denies change in body appearance, Denies excessive sweating, Denies polyphagia, Denies polydipsia and Denies polyuria Exam Const: General: comfortable and no acute distress HENMT: Mouth: Yes moist mucous membranes Eyes: General: appearance normal, both eyes and all related structures Neck: Neck: supple and no JVD Resp: Effort & Inspection: normal respiratory effort Cardio: Rate: regular rate Rhythm: regular rhythm GI: Inspection: non-distended GI Palp: Yes Soft to palpation and No Tenderness to palpation present (GI) Skin: Other: Wound VAC dressing removed from the left anterior knee. Wound measures 3.0x1.5x0.7cm, 100% red/pink wound bed. Tunneling to 3 o'clock of 2.5cm and at 7 o'clock to 0.5cm. Surrounding tissue without redness, warmth, swelling
--- NOTE | 2020-08-23 12:33 | PM.PNORT ---
Progress Note: A&P Assessment and Plan (1) Prepatellar bursitis: Qualifiers: Laterality: left Qualified Code(s): M70.42 - Prepatellar bursitis, left knee Code(s): M70.40 - Prepatellar bursitis, unspecified knee Status: Acute Assessment and Plan: 7 weeks s/p I&D of left prepatellar bursa and wound VAC application in the operating room by Dr. Miguel. He returns today to [place] wound clinic today for re-evaluation s/p discontinuation of the wound VAC. He has been doing daily dressing changes with Aquacel AG rope to the depths of the wound bed. Wound dimensions improved today, see exam. Follow up with [facility] wound clinic nurses Sunday. Will follow up with patient in 1 week. Reviewed signs and symptoms of infection to report to the emergency room immediately. Patient verbalized understanding and agrees with plan and cares. (2) Smoking: Code(s): F17.200 - Nicotine dependence, unspecified, uncomplicated Status: Acute Assessment and Plan: Patient endorses continued smoking cessation. Encouraged continuation for optimal wound healing. Subjective Subjective Date/Time Seen: 08/23/20 12:33 Patient presents today to [place] wound clinic for follow-up of left knee prepatellar wound. He is now 6 weeks, 1 day s/p I&D with debridement of left prepatella bursa. Wound VAC removed. Hypergranulation tissue noted. Surrounding tissue without redness, warmth or swelling. Patient denies fever, chills, night sweats, nausea, vomiting or diarrhea. No active bleeding noted. No c/o pain. No signs of infection. He continues to take oral antibiotics without issues, to be completed this upcoming Sunday. Review of Systems Constitutional: Constitutional: Denies chills, Denies fatigue, Denies night sweats and Denies weakness Eyes: Eyes: Denies blurry vision and Denies photophobia ENT: Reports system reviewed and no additional complaints, except as documented and Reports Normal hearing present Cardiovascular: Cardiovascular: Denies chest pain, Denies diaphoresis, Denies leg ulcers and Denies dyspnea on exertion Respiratory: Respiratory: Reports no additional respiratory complaints, Denies cough and Denies dyspnea on exertion Gastrointestinal: Gastrointestinal: Reports no additional gastrointestinal complaints, Denies abdominal pain, Denies constipation, Denies nausea and Denies vomiting Genitourinary: Genitourinary: Reports no additional male genitourinary complaints, Denies hematuria and Denies urinary frequency Musculoskeletal: Musculoskeletal: Reports no additional musculoskeletal complaints and Reports as per HPI Integumentary/Breasts: Skin/Breast: Reports as per HPI Neurologic: Reports system reviewed and no additional complaints, except as documented and Reports Normal hearing present Psychiatric: Psychiatric: Reports no additional psychiatric complaints Endocrine: Endocrine: Reports no additional endocrine complaints, Denies change in body appearance, Denies excessive sweating, Denies polyphagia, Denies polydipsia and Denies polyuria Exam Const: General: comfortable and no acute distress HENMT: Mouth: Yes moist mucous membranes Eyes: General: appearance normal, both eyes and all related structures Neck: Neck: supple and no JVD Resp: Effort & Inspection: normal respiratory effort Cardio: Rate: regular rate Rhythm: regular rhythm GI: Inspection: non-distended GI Palp: Yes Soft to palpation and No Tenderness to palpation present (GI) Skin: Other: Wound measures 3.2 x 2.1 x 0.2 cm at the anterior aspect of the left knee. 100% red/ pink wound bed. There is tunneling at the 7 o'clock position to 1.6 cm and at the 3 o'clock position to 0.7 cm. No purulence, no malodor. No signs of active infection. Surrounding tissue without redness, warmth, swelling or signs of active infection as well. No active bleeding. Neuro: General: gait normal Cognition (Neuro): normal cognition Speech: normal s
--- NOTE | 2020-08-31 12:09 | PM.PNORT ---
Progress Note: A&P Assessment and Plan (1) Prepatellar bursitis: Qualifiers: Laterality: left Qualified Code(s): M70.42 - Prepatellar bursitis, left knee Code(s): M70.40 - Prepatellar bursitis, unspecified knee Status: Acute Assessment and Plan: 7 weeks, 5 days s/p I&D of left prepatellar bursa and wound VAC application in the operating room by Dr. Miguel. He returns today [place] [facility] for re-evaluation. We discontinued his wound VAC a couple of weeks ago and he has been performing daily dressing changes with Aquacel Ag rope the depths of the wound bed. He has also been using mupirocin and silver gel. On exam today, wound with continued improvement in dimensions. No signs of active infection. Tunneling with notable improvement as well. Recommended cessation of Aquacel Ag rope at this time. We will begin mupirocin and Tiffany to the wound bed. patient to continue weekly exams in the wound clinic. We will follow up with the patient in 1 week. Reviewed signs and symptoms of infection to report to the emergency room immediately. Patient verbalized understanding and agrees with plan and cares. (2) Smoking: Code(s): F17.200 - Nicotine dependence, unspecified, uncomplicated Status: Acute Assessment and Plan: Patient endorses continued smoking cessation. Encouraged continuation for optimal wound healing. Subjective Subjective Date/Time Seen: 08/31/20 12:09 Patient presents today to [place] [facility] for follow-up of left knee prepatellar wound. He is now 7 weeks, 5 days s/p I&D with debridement of left prepatella bursa. Wound VAC removed. Hypergranulation tissue noted. Surrounding tissue without redness, warmth or swelling. Patient denies fever, chills, night sweats, nausea, vomiting or diarrhea. No active bleeding noted. No c/o pain. No signs of infection. He continues to take oral antibiotics without issues, to be completed this upcoming Sunday. Review of Systems Constitutional: Constitutional: Denies chills, Denies fatigue, Denies night sweats and Denies weakness Eyes: Eyes: Denies blurry vision and Denies photophobia ENT: Reports system reviewed and no additional complaints, except as documented and Reports Normal hearing present Cardiovascular: Cardiovascular: Denies chest pain, Denies diaphoresis, Denies leg ulcers and Denies dyspnea on exertion Respiratory: Respiratory: Reports no additional respiratory complaints, Denies cough and Denies dyspnea on exertion Gastrointestinal: Gastrointestinal: Reports no additional gastrointestinal complaints, Denies abdominal pain, Denies constipation, Denies nausea and Denies vomiting Genitourinary: Genitourinary: Reports no additional male genitourinary complaints, Denies hematuria and Denies urinary frequency Musculoskeletal: Musculoskeletal: Reports no additional musculoskeletal complaints and Reports as per HPI Integumentary/Breasts: Skin/Breast: Reports as per HPI Neurologic: Reports system reviewed and no additional complaints, except as documented and Reports Normal hearing present Psychiatric: Psychiatric: Reports no additional psychiatric complaints Endocrine: Endocrine: Reports no additional endocrine complaints, Denies change in body appearance, Denies excessive sweating, Denies polyphagia, Denies polydipsia and Denies polyuria Exam Const: General: comfortable and no acute distress HENMT: Mouth: Yes moist mucous membranes Eyes: General: appearance normal, both eyes and all related structures Neck: Neck: supple and no JVD Resp: Effort & Inspection: normal respiratory effort Cardio: Rate: regular rate Rhythm: regular rhythm GI: Inspection: non-distended GI Palp: Yes Soft to palpation and No Tenderness to palpation present (GI) Skin: Other: Wound on the anterior aspect of the left knee measures 2.4 x 2.0 x 0.2 cm with tunneling at the 7:00 a.m. angle to 2.0 cm and tunneling at the 3:00 a.m. angle
--- NOTE | 2020-09-03 09:00 | PM.PNORT ---
Progress Note: A&P Assessment and Plan (1) Prepatellar bursitis: Qualifiers: Laterality: left Qualified Code(s): M70.42 - Prepatellar bursitis, left knee Code(s): M70.40 - Prepatellar bursitis, unspecified knee Status: Acute Assessment and Plan: 8 weeks. 1 day s/p I&D of left prepatellar bursa and wound VAC application in the operating room by Dr. Miguel. He returns today [place] [facility] for re-evaluation. He has been performing daily dressing changes daily with mupirocin and nehemias to the wound bed. We stopped packing the wound earlier this week which has proven beneficial as the tunneling at the 3 oclock angle has improved. No signs of active infection. Patient to continue weekly exams in the wound clinic. We will follow up with the patient in 1 week. Reviewed signs and symptoms of infection to report to the emergency room immediately. Patient verbalized understanding and agrees with plan and cares. (2) Smoking: Code(s): F17.200 - Nicotine dependence, unspecified, uncomplicated Status: Acute Assessment and Plan: Patient endorses continued smoking cessation. Encouraged continuation for optimal wound healing. Subjective Subjective Date/Time Seen: 09/03/20 09:00 Patient presents today to [place] [facility] clinic for follow-up of left knee prepatellar wound. He is now 8 weeks, 1 day s/p I&D with debridement of left prepatella bursa. Wound VAC removed. Hypergranulation tissue noted. Surrounding tissue without redness, warmth or swelling. Patient denies fever, chills, night sweats, nausea, vomiting or diarrhea. No active bleeding noted. No c/o pain. No signs of infection. He continues to take oral antibiotics without issues, to be completed this upcoming Sunday. Review of Systems Constitutional: Constitutional: Denies chills, Denies fatigue, Denies night sweats and Denies weakness Eyes: Eyes: Denies blurry vision and Denies photophobia ENT: Reports system reviewed and no additional complaints, except as documented and Reports Normal hearing present Cardiovascular: Cardiovascular: Denies chest pain, Denies diaphoresis, Denies leg ulcers and Denies dyspnea on exertion Respiratory: Respiratory: Reports no additional respiratory complaints, Denies cough and Denies dyspnea on exertion Gastrointestinal: Gastrointestinal: Reports no additional gastrointestinal complaints, Denies abdominal pain, Denies constipation, Denies nausea and Denies vomiting Genitourinary: Genitourinary: Reports no additional male genitourinary complaints, Denies hematuria and Denies urinary frequency Musculoskeletal: Musculoskeletal: Reports no additional musculoskeletal complaints and Reports as per HPI Integumentary/Breasts: Skin/Breast: Reports as per HPI Neurologic: Reports system reviewed and no additional complaints, except as documented and Reports Normal hearing present Psychiatric: Psychiatric: Reports no additional psychiatric complaints Endocrine: Endocrine: Reports no additional endocrine complaints, Denies change in body appearance, Denies excessive sweating, Denies polyphagia, Denies polydipsia and Denies polyuria Exam Const: General: comfortable and no acute distress HENMT: Mouth: Yes moist mucous membranes Eyes: General: appearance normal, both eyes and all related structures Neck: Neck: supple and no JVD Resp: Effort & Inspection: normal respiratory effort Cardio: Rate: regular rate Rhythm: regular rhythm GI: Inspection: non-distended GI Palp: Yes Soft to palpation and No Tenderness to palpation present (GI) Skin: Other: Wound on the anterior aspect of the left knee measures 2.2x1.8x0.2cm with tunneling at the 7 oclock angle to 2.3 cm and tunneling at the 3 oclock angle now closed. Wound bed is 100% red /pink wound bed. No evidence of hypergranulation tissue noted today. No signs of active infection. Surrounding tissue without redness, warmth, swelling or signs of acti
--- NOTE | 2020-09-10 09:01 | PM.PNORT ---
Progress Note: A&P Assessment and Plan (1) Prepatellar bursitis: Qualifiers: Laterality: left Qualified Code(s): M70.42 - Prepatellar bursitis, left knee Code(s): M70.40 - Prepatellar bursitis, unspecified knee Status: Acute Assessment and Plan: 9 weeks, 1 day day s/p I&D of left prepatellar bursa and wound VAC application in the operating room by Dr. Miguel. He returns today [place] [facility] for re-evaluation. He has been performing daily dressing changes daily with mupirocin and nehemias to the wound bed. Wound with good healing, see assessment. Continue Mupirocin, cover with nehemias, cover dry. Follow up in 1 week. Reviewed signs and symptoms of infection to report to the emergency room immediately. Patient verbalized understanding and agrees with plan and cares. (2) Smoking: Code(s): F17.200 - Nicotine dependence, unspecified, uncomplicated Status: Acute Assessment and Plan: Patient endorses continued smoking cessation. Encouraged continuation for optimal wound healing. Time Spent With Patient Time with patient: 15 - 25 minutes Subjective Subjective Date/Time Seen: 09/10/20 09:01 Patient presents today to [place] [facility] for follow-up of left knee prepatellar wound. He is now 9 weeks, 1 day s/p I&D with debridement of left prepatella bursa. 1st surgery preformed 14 weeks. No new complaints. Wound stable. Performing wound care independently without problems. Wound with improvement noted. Surrounding tissue without redness, warmth or swelling. Patient denies fever, chills, night sweats, nausea, vomiting or diarrhea. No active bleeding noted. No c/o pain. No signs of infection. Review of Systems Constitutional: Constitutional: Denies chills, Denies fatigue, Denies night sweats and Denies weakness Eyes: Eyes: Denies blurry vision and Denies photophobia ENT: Reports system reviewed and no additional complaints, except as documented and Reports Normal hearing present Cardiovascular: Cardiovascular: Denies chest pain, Denies diaphoresis, Denies leg ulcers and Denies dyspnea on exertion Respiratory: Respiratory: Reports no additional respiratory complaints, Denies cough and Denies dyspnea on exertion Gastrointestinal: Gastrointestinal: Reports no additional gastrointestinal complaints, Denies abdominal pain, Denies constipation, Denies nausea and Denies vomiting Genitourinary: Genitourinary: Reports no additional male genitourinary complaints, Denies hematuria and Denies urinary frequency Musculoskeletal: Musculoskeletal: Reports no additional musculoskeletal complaints and Reports as per HPI Integumentary/Breasts: Skin/Breast: Reports as per HPI Neurologic: Reports system reviewed and no additional complaints, except as documented and Reports Normal hearing present Psychiatric: Psychiatric: Reports no additional psychiatric complaints Endocrine: Endocrine: Reports no additional endocrine complaints, Denies change in body appearance, Denies excessive sweating, Denies polyphagia, Denies polydipsia and Denies polyuria Exam Const: General: comfortable and no acute distress HENMT: Mouth: Yes moist mucous membranes Eyes: General: appearance normal, both eyes and all related structures Neck: Neck: supple and no JVD Resp: Effort & Inspection: normal respiratory effort Cardio: Rate: regular rate Rhythm: regular rhythm GI: Inspection: non-distended GI Palp: Yes Soft to palpation and No Tenderness to palpation present (GI) Skin: Other: Wound on the anterior aspect of the left knee measures 1.5xx1.5x0.2cm with tunneling at the 7 oclock angle to 1.0 cm. Wound bed is 100% red /pink wound bed. No evidence of hypergranulation tissue noted today. No signs of active infection. Surrounding tissue without redness, warmth, swelling or signs of active infection. No purulence. No malodor. Patient continues to have active and passive range of motion of the left
== END 2020-09-13 23:59 | disposition home or self-care (01) ==
LOC: ANHWOC 07:33
PROVIDERS: Orthopaedic Surgery; PCP Family Medicine; Visit Provider Nurse Practitioner Family
DX: T81.31XD Disruption of external operation (surgical) wound, not elsewhere classified, subsequent encounter (principal)
CPT/HCPCS: 36415; 85014; 85018; 97605; 97606; 99212; 99213; A9270; G0463

== ENCOUNTER 2020-09-14 09:33 | Outpatient (CLI) | payer MEDICARE, SELFPAY ==
--- NOTE | ~2020-09-14 | CT_ITS ---
EXAMINATION:CT lung screening DATE: 09/14/2020 09:54 INDICATION: Personal history of nicotine dependence. Smoker who quit 1 year ago with 30 pack year his tory. TECHNIQUE: Computed tomography (CT) of the chest was performed without intravenous contrast. Automate d exposure control and iterative reconstruction technique were employed. The dose-length product (DLP ) was 401.61 mGy-cm. COMPARISON: Chest CT 09/15/2019 FINDINGS: There is mild emphysema. Calcified pulmonary nodules and calcified hilar lymph nodes are co nsistent with old granulomatous disease. There are a few scattered nodules in the lungs measuring up to 5 mm without change. There is chronic septal thickening in the upper lobes, right worse than left. No pleural effusion. There is a saber-sheath trachea. The heart size is normal. There are coronary a rtery calcifications. There are calcifications of the aortic valve. No pericardial effusion. Calcific ations in the spleen are consistent with old granulomatous disease. There is moderate thoracic spondy losis. IMPRESSION: 1. Lung-RADS category 2: Benign appearance or behavior. Continue annual screening with noncontrast lo w-dose chest CT in 12 months. Reviewed, dictated and finalized at location A. [facility]PER[facility] IMPRESSION: 1. Lung-RADS category 2: Benign appearance or behavior. Continue annual screeni ng with noncontrast low-dose chest CT in 12 months.
== END 2020-09-14 09:34 | disposition home or self-care (01) ==
PROVIDERS: PCP Family Medicine; Visit Provider Internal Medicine Critical Care Medicine
DX: Z12.2 Encounter for screening for malignant neoplasm of respiratory organs (principal); Z87.891 Personal history of nicotine dependence
CPT/HCPCS: G0297

== ENCOUNTER 2020-11-19 11:13 | Outpatient (CLI) | payer MEDICARE, MEDICAID, SELFPAY ==
--- NOTE | ~2020-11-19 | US_ITS ---
EXAMINATION: US venous doppler [facility] DATE: 11/19/2020 11:39 INDICATION: Left lower limb swelling TECHNIQUE: Gabriel scale images without and with compression and Doppler images of the left lower extrem ity veins were obtained. COMPARISON: 07/12/2020 FINDINGS: The left common femoral vein, profunda femoral vein, femoral vein, popliteal vein, peroneal trunk, posterior tibial veins, and greater saphenous vein are patent. IMPRESSION: 1. Patent left lower extremity veins. No evidence of deep venous thrombosis. Reviewed, dictated and finalized at location A. ICAL INFORMATICS MANAGER
== END 2020-11-19 11:14 | disposition home or self-care (01) ==
PROVIDERS: PCP Family Medicine; Visit Provider Nurse Practitioner Family
DX: M79.89 Other specified soft tissue disorders (principal)
CPT/HCPCS: 93971

== ENCOUNTER 2020-11-23 07:27 | Outpatient (RCR) | payer MEDICARE, MEDICAID, SELFPAY ==
--- NOTE | 2020-09-17 10:45 | PM.PNORT ---
Progress Note: A&P Assessment and Plan (1) Prepatellar bursitis: Qualifiers: Laterality: left Qualified Code(s): M70.42 - Prepatellar bursitis, left knee Code(s): M70.40 - Prepatellar bursitis, unspecified knee Status: Acute Assessment and Plan: 10 weeks s/p I&D of left prepatellar bursa and wound VAC application in the operating room by Dr. Miguel. He returns today [place] [facility] for re-evaluation. He has been performing daily dressing changes daily with mupirocin and nehemias to the wound bed. Wound with good healing, see assessment. Continue Mupirocin, cover with nehemias, cover dry. indicated for graft application to assist with epithelialization. Discussed nonoperative and operative treatment options with the patient. Risks and benefits of each as well as alternatives were reviewed. All of the patient's questions were answered. The risks of surgery reviewed including but not limited to: Neurovascular damage, wound complication, infection, blood clot, pulmonary embolus, stroke, myocardial infarction, and anesthetic risks up to and including . Continued pain and possible dysfunction were explained. Specific risks of the procedure including later recurrence of deformity. No guarantees were offered. If complications occur, the patient understands the need for further treatment, possible further surgery. Patient verbalizes understanding and wishes to proceed. PLAN: Application of amniotic graft left knee. Follow up in 1 week. Reviewed signs and symptoms of infection to report to the emergency room immediately. Patient verbalized understanding and agrees with plan and cares. (2) Smoking: Code(s): F17.200 - Nicotine dependence, unspecified, uncomplicated Status: Acute Assessment and Plan: Patient endorses continued smoking cessation. Encouraged continuation for optimal wound healing. Time Spent With Patient Time with patient: 15 - 25 minutes Subjective Subjective Date/Time Seen: 09/17/20 10:45 Patient presents today to [place] [facility] for follow-up of left knee prepatellar wound. He is now 10 weeks s/p I&D with debridement of left prepatella bursa. 1st surgery preformed 15 weeks ago. No new complaints. Wound stable. Performing wound care independently without problems. Wound with improvement noted. Surrounding tissue without redness, warmth or swelling. Patient denies fever, chills, night sweats, nausea, vomiting or diarrhea. No active bleeding noted. No c/o pain. No signs of infection. Review of Systems Constitutional: Constitutional: Denies chills, Denies fatigue, Denies night sweats and Denies weakness Eyes: Eyes: Denies blurry vision and Denies photophobia ENT: Reports system reviewed and no additional complaints, except as documented and Reports Normal hearing present Cardiovascular: Cardiovascular: Denies chest pain, Denies diaphoresis, Denies leg ulcers and Denies dyspnea on exertion Respiratory: Respiratory: Reports no additional respiratory complaints, Denies cough and Denies dyspnea on exertion Gastrointestinal: Gastrointestinal: Reports no additional gastrointestinal complaints, Denies abdominal pain, Denies constipation, Denies nausea and Denies vomiting Genitourinary: Genitourinary: Reports no additional male genitourinary complaints, Denies hematuria and Denies urinary frequency Musculoskeletal: Musculoskeletal: Reports no additional musculoskeletal complaints and Reports as per HPI Integumentary/Breasts: Skin/Breast: Reports as per HPI Neurologic: Reports system reviewed and no additional complaints, except as documented and Reports Normal hearing present Psychiatric: Psychiatric: Reports no additional psychiatric complaints Endocrine: Endocrine: Reports no additional endocrine complaints, Denies change in body appearance, Denies excessive sweating, Denies polyphagia, Denies polydipsia and Denies polyuria Exam Const: General: comfortable and
--- NOTE | 2020-09-28 09:21 | PM.PNORT ---
Progress Note: A&P Assessment and Plan (1) Prepatellar bursitis: Qualifiers: Laterality: left Qualified Code(s): M70.42 - Prepatellar bursitis, left knee Code(s): M70.40 - Prepatellar bursitis, unspecified knee Status: Acute Assessment and Plan: 12 weeks s/p I&D of left prepatellar bursa and wound VAC application in the operating room by Dr. Miguel. He returns today [place] [facility] for re-evaluation. He has been performing daily dressing changes daily with mupirocin and nehemias to the wound bed. Wound with good healing, see assessment. Continue Mupirocin, cover with nehemias, cover dry. indicated for graft application to assist with epithelialization. Discussed nonoperative and operative treatment options with the patient. Risks and benefits of each as well as alternatives were reviewed. All of the patient's questions were answered. The risks of surgery reviewed including but not limited to: Neurovascular damage, wound complication, infection, blood clot, pulmonary embolus, stroke, myocardial infarction, and anesthetic risks up to and including . Continued pain and possible dysfunction were explained. Specific risks of the procedure including later recurrence of deformity. No guarantees were offered. If complications occur, the patient understands the need for further treatment, possible further surgery. Patient verbalizes understanding and wishes to proceed. PLAN: Application of amniotic graft left knee. Follow up in 1 week. Reviewed signs and symptoms of infection to report to the emergency room immediately. Patient verbalized understanding and agrees with plan and cares. Mild skin fungal changes surrounding wound. Add topical antifungal with dressing change. Plan for re-application of graft in 2 weeks if healing plateaus. (2) Smoking: Code(s): F17.200 - Nicotine dependence, unspecified, uncomplicated Status: Acute Assessment and Plan: Patient endorses continued smoking cessation. Encouraged continuation for optimal wound healing. Time Spent With Patient Time with patient: 15 - 25 minutes Subjective Subjective Date/Time Seen: 09/28/20 09:21 Patient returns for postoperative visit [facility] outpatient wound clinic. Three months status post left knee debridement. No interim complaints or problems. Denies fever or chills. Review of Systems Constitutional: Constitutional: Denies chills, Denies fatigue, Denies night sweats and Denies weakness Eyes: Eyes: Denies blurry vision and Denies photophobia ENT: Reports system reviewed and no additional complaints, except as documented and Reports Normal hearing present Cardiovascular: Cardiovascular: Denies chest pain, Denies diaphoresis, Denies leg ulcers and Denies dyspnea on exertion Respiratory: Respiratory: Reports no additional respiratory complaints, Denies cough and Denies dyspnea on exertion Gastrointestinal: Gastrointestinal: Reports no additional gastrointestinal complaints, Denies abdominal pain, Denies constipation, Denies nausea and Denies vomiting Genitourinary: Genitourinary: Reports no additional male genitourinary complaints, Denies hematuria and Denies urinary frequency Musculoskeletal: Musculoskeletal: Reports no additional musculoskeletal complaints and Reports as per HPI Integumentary/Breasts: Skin/Breast: Reports as per HPI Neurologic: Reports system reviewed and no additional complaints, except as documented and Reports Normal hearing present Psychiatric: Psychiatric: Reports no additional psychiatric complaints Endocrine: Endocrine: Reports no additional endocrine complaints, Denies change in body appearance, Denies excessive sweating, Denies polyphagia, Denies polydipsia and Denies polyuria Exam Const: General: comfortable and no acute distress HENMT: Mouth: Yes moist mucous membranes Eyes: General: appearance normal, both eyes and all related structures Neck: Neck: sup
--- NOTE | 2020-09-28 09:24 | PM.PROC ---
Procedure Note - Detailed Date of procedure: 09/28/20 Pre-op diagnosis: left knee open wound with wound vac application Post-op diagnosis: same Procedure performed: Graft application left knee Description of procedure: 70-year-old gentleman with left knee prepatellar bursa open wound. Wound healing has plateaued. There is good granulation tissue and no sign of infection. Patient identified, site identified. Area cleansed with alcohol prep solution. Amniotic tissue graft applied to the wound. 1.5 x 1.5 cm graft. Sterile dressing applied. Implants: Amnioexcel ID [id number], Exp 04/23/2024, Size 1.5X1.5cm, Product [id number] Anesthesia: none Surgeon: Som Parish MD Estimated blood loss (mL): 1 Tourniquet time (min): 0 Drains: No Packing: No Pathology: none sent Complications: None Condition: stable Disposition: other (home)
--- NOTE | 2020-10-05 16:18 | PM.PNORT ---
Progress Note: A&P Assessment and Plan (1) Prepatellar bursitis: Qualifiers: Laterality: left Qualified Code(s): M70.42 - Prepatellar bursitis, left knee Code(s): M70.40 - Prepatellar bursitis, unspecified knee Status: Acute Assessment and Plan: Patient is now 1 week status post amniotic cell graft to the left prepatellar bursa wound site. Improvement in wound measurements noted today. No signs of infection. Continue mupirocin to the wound bed as well as present covered dry. Continue antifungal cream around the wound site. Patient follow-up in 1 week for re-evaluation. We will plan for grafts application at that time of healing plateaus. Patient verbalized understanding agrees with plan of care. Continue daily dressing changes. Reinforce need for optimal nutrition for proper healing. (2) Smoking: Code(s): F17.200 - Nicotine dependence, unspecified, uncomplicated Status: Acute Assessment and Plan: Patient endorses continued smoking cessation. Encouraged continuation for optimal wound healing. Time Spent With Patient Time with patient: 15 - 25 minutes Subjective Subjective Date/Time Seen: 10/05/20 16:18 Patient returns today for postoperative visit at [facility]. He is 1 week status post application of graft in the office by Dr. Parish. He denies any complications. Denies fever, chills, night sweats, nausea vomiting or diarrhea. Pain well controlled. Review of Systems Constitutional: Constitutional: Denies chills, Denies fatigue, Denies night sweats and Denies weakness Eyes: Eyes: Denies blurry vision and Denies photophobia ENT: Reports system reviewed and no additional complaints, except as documented and Reports Normal hearing present Cardiovascular: Cardiovascular: Denies chest pain, Denies diaphoresis, Denies leg ulcers and Denies dyspnea on exertion Respiratory: Respiratory: Reports no additional respiratory complaints, Denies cough and Denies dyspnea on exertion Gastrointestinal: Gastrointestinal: Reports no additional gastrointestinal complaints, Denies abdominal pain, Denies constipation, Denies nausea and Denies vomiting Genitourinary: Genitourinary: Reports no additional male genitourinary complaints, Denies hematuria and Denies urinary frequency Musculoskeletal: Musculoskeletal: Reports no additional musculoskeletal complaints and Reports as per HPI Integumentary/Breasts: Skin/Breast: Reports as per HPI Neurologic: Reports system reviewed and no additional complaints, except as documented and Reports Normal hearing present Psychiatric: Psychiatric: Reports no additional psychiatric complaints Endocrine: Endocrine: Reports no additional endocrine complaints, Denies change in body appearance, Denies excessive sweating, Denies polyphagia, Denies polydipsia and Denies polyuria Exam Const: General: comfortable and no acute distress HENMT: Mouth: Yes moist mucous membranes Eyes: General: appearance normal, both eyes and all related structures Neck: Neck: supple and no JVD Resp: Effort & Inspection: normal respiratory effort Cardio: Rate: regular rate Rhythm: regular rhythm GI: Inspection: non-distended GI Palp: Yes Soft to palpation and No Tenderness to palpation present (GI) Skin: Other: Wound of the anterior aspect of the left knee measures 1.2 x 2 0.0 with a tunneling to 0.4 cm at the 7 oclock margin. No evidence of hypergranulation tissue noted today. No signs of an active infection. Surrounding tissue without redness, warmth, swelling or signs of active infection. No purulence or malodor. Patient continues to have active and passive range of motion of the left knee without pain. No knee joint effusion noted. No signs of septic joint. Neuro: General: gait normal Cognition (Neuro): normal cognition Speech: normal speech Extrem: Left lower extremity: knee Details: abnormal to inspection Details:
--- NOTE | 2020-10-11 09:34 | PM.PNORT ---
Progress Note: A&P Assessment and Plan (1) Prepatellar bursitis: Qualifiers: Laterality: left Qualified Code(s): M70.42 - Prepatellar bursitis, left knee Code(s): M70.40 - Prepatellar bursitis, unspecified knee Status: Acute Assessment and Plan: 2 weeks s/p Amnioexcel graft to the left prepatellar bursa wound site. Wound with continued improvement in dimensions. Wound measures 1.0x2.0x0.2 cm, 100% red/pink wound bed. No signs of active infection. Patient would benefit from repeat graft application at this time to expedite healing process. Graft applied under sterile conditions, covered with Mepitel one. Tolerated well. Keep graft in place and do not disrupt wound bed x48 hours then resume daily dressing changes with nehemias/mupirocin to the wound bed. Continue antifungal cream to the surrounding wound site once resumed dressing changes. Follow up next Sunday for reevaluation. Reviewed signs/symptoms of infection to report to ED immediately. Patient verbalized understanding and agrees with POC. (2) Smoking: Code(s): F17.200 - Nicotine dependence, unspecified, uncomplicated Status: Acute Assessment and Plan: Patient endorses continued smoking cessation. Encouraged continuation for optimal wound healing. Subjective Subjective Date/Time Seen: 10/11/20 09:34 Patient returns today for postoperative visit at [facility]. He is now 2 weeks status post application of graft in the outpatient clinic by Dr. Parish. He denies any complications. Denies fever, chills, night sweats, nausea vomiting or diarrhea. Pain well controlled. He has been performing daily dressing changes. Drainage has decreased. Review of Systems Constitutional: Constitutional: Denies chills, Denies fatigue, Denies night sweats and Denies weakness Eyes: Eyes: Denies blurry vision and Denies photophobia ENT: Reports system reviewed and no additional complaints, except as documented and Reports Normal hearing present Cardiovascular: Cardiovascular: Denies chest pain, Denies diaphoresis, Denies leg ulcers and Denies dyspnea on exertion Respiratory: Respiratory: Reports no additional respiratory complaints, Denies cough and Denies dyspnea on exertion Gastrointestinal: Gastrointestinal: Reports no additional gastrointestinal complaints, Denies abdominal pain, Denies constipation, Denies nausea and Denies vomiting Genitourinary: Genitourinary: Reports no additional male genitourinary complaints, Denies hematuria and Denies urinary frequency Musculoskeletal: Musculoskeletal: Reports no additional musculoskeletal complaints and Reports as per HPI Integumentary/Breasts: Skin/Breast: Reports as per HPI Neurologic: Reports system reviewed and no additional complaints, except as documented and Reports Normal hearing present Psychiatric: Psychiatric: Reports no additional psychiatric complaints Endocrine: Endocrine: Reports no additional endocrine complaints, Denies change in body appearance, Denies excessive sweating, Denies polyphagia, Denies polydipsia and Denies polyuria Exam Const: General: comfortable and no acute distress HENMT: Mouth: Yes moist mucous membranes Eyes: General: appearance normal, both eyes and all related structures Neck: Neck: supple and no JVD Resp: Effort & Inspection: normal respiratory effort Cardio: Rate: regular rate Rhythm: regular rhythm GI: Inspection: non-distended GI Palp: Yes Soft to palpation and No Tenderness to palpation present (GI) Skin: Other: Wound of the anterior aspect of the left knee measures 1.0x2.0x0.1 with a tunneling to 0.5 cm at the 7 o'clock margin. No excessive hypergranulation tissue noted today. No signs of an active infection. Surrounding tissue without redness, warmth, swelling or signs of active infection. No purulence or malodor. Patient continues to have active and passive range of motion of the left knee without pa
--- NOTE | 2020-10-11 09:41 | P.OPB_ITS ---
Procedure Note - Brief Procedure Note - Brief Date of procedure: 10/11/20 Pre-op diagnosis: left knee open wound with wound vac application Left knee prepatellar bursa wound (no wound VAC in place). Post-op diagnosis: same Procedure performed: 70-year-old gentleman with left knee prepatellar bursa open wound. Wound healing showed improvement s/p graft #[address] 2 weeks ago. Wound plateaued this week. Patient indicated for repeat graft application. There is good granulation tissue and no sign of infection. Patient identified, site identified. Area cleansed with alcohol prep solution. Amniotic tissue graft applied to the wound. 1.5 x 1.5 cm graft. Sterile dressing applied. Implants: Implants: Amnioexcel ID [id number], Exp 09/01/2024, Size 1.5X1.5cm, Product [id number] Anesthesia: none Surgeon: FRANCISCO Peterson Financial Sales Professional: None Estimated blood loss (mL): 0 Tourniquet time (min): 0 IV fluids (mL): 0 Urine output (mL): 0 Drains: No Packing: No Pathology: none sent Complications: No immediate complications Condition: stable Disposition: same day
--- NOTE | 2020-10-19 10:19 | PM.PNORT ---
Progress Note: A&P Assessment and Plan (1) Prepatellar bursitis: Qualifiers: Laterality: left Qualified Code(s): M70.42 - Prepatellar bursitis, left knee Code(s): M70.40 - Prepatellar bursitis, unspecified knee Status: Acute Assessment and Plan: 1 week s/p Amnioexcel graft #2 to the left prepatellar bursa wound site. Wound with continued improvement in dimensions. Wound measures 0.5x0.5x0.1cm, tunneling resolved, 100% red/pink wound bed. No signs of active infection. Continue daily dressing changes with nehemias/mupirocin to the wound bed. Lotrisone to surrounding tissue. Follow up in 1 week. Reviewed signs/symptoms of infection to report to ED immediately. Patient verbalized understanding and agrees with POC. (2) Smoking: Code(s): F17.200 - Nicotine dependence, unspecified, uncomplicated Status: Acute Assessment and Plan: Patient endorses continued smoking cessation. Encouraged continuation for optimal wound healing. Subjective Subjective Date/Time Seen: 10/19/20 10:19 Patient returns today for postoperative visit at [facility]. He is now 1 weeks status post application of amnioexcel graft #2 in the outpatient clinic. He denies any complications. Denies fever, chills, night sweats, nausea vomiting or diarrhea. Pain well controlled. He has been performing daily dressing changes. Drainage is minimal. Review of Systems Constitutional: Constitutional: Denies chills, Denies fatigue, Denies night sweats and Denies weakness Eyes: Eyes: Denies blurry vision and Denies photophobia ENT: Reports system reviewed and no additional complaints, except as documented and Reports Normal hearing present Cardiovascular: Cardiovascular: Denies chest pain, Denies diaphoresis, Denies leg ulcers and Denies dyspnea on exertion Respiratory: Respiratory: Reports no additional respiratory complaints, Denies cough and Denies dyspnea on exertion Gastrointestinal: Gastrointestinal: Reports no additional gastrointestinal complaints, Denies abdominal pain, Denies constipation, Denies nausea and Denies vomiting Genitourinary: Genitourinary: Reports no additional male genitourinary complaints, Denies hematuria and Denies urinary frequency Musculoskeletal: Musculoskeletal: Reports no additional musculoskeletal complaints and Reports as per HPI Integumentary/Breasts: Skin/Breast: Reports as per HPI Neurologic: Reports system reviewed and no additional complaints, except as documented and Reports Normal hearing present Psychiatric: Psychiatric: Reports no additional psychiatric complaints Endocrine: Endocrine: Reports no additional endocrine complaints, Denies change in body appearance, Denies excessive sweating, Denies polyphagia, Denies polydipsia and Denies polyuria Exam Const: General: comfortable and no acute distress HENMT: Mouth: Yes moist mucous membranes Eyes: General: appearance normal, both eyes and all related structures Neck: Neck: supple and no JVD Resp: Effort & Inspection: normal respiratory effort Cardio: Rate: regular rate Rhythm: regular rhythm GI: Inspection: non-distended GI Palp: Yes Soft to palpation and No Tenderness to palpation present (GI) Skin: Other: Wound of the anterior aspect of the left knee measures 0.5x1.5x0.1 cm with tunneling at the 7 o'clock margin closed. No excessive hypergranulation tissue noted today. No signs of an active infection. Surrounding tissue without redness, warmth, swelling or signs of active infection. No purulence or malodor. Patient continues to have active and passive range of motion of the left knee without pain. No knee joint effusion noted. No signs of septic joint. Neuro: General: gait normal Cognition (Neuro): normal cognition Speech: normal speech Extrem: Left lower extremity: knee Details: abnormal to inspection Details: with a suprapatellar bulge, tenderness Location: of the patella, sw
--- NOTE | 2020-10-26 14:35 | PM.IMHP ---
H&P: HPI History of Present Illness Date/Time: 10/26/20 14:35 Chief Complaint: Left prepatellar bursa postoperative wound. Narrative: Kvng Brownlee is a 70 year old male Who presents [facility] 2 weeks status post graft application to the left prepatellar bursa space. The patient underwent an I&D of the left prepatellar bursa on June 01, [address] Miguel which was then complicated by a postoperative hematoma. He underwent several weeks of wound VAC changes with improvement in wound. His wound improvement then slowed and he was indicated for graft applications. He has now undergone 2 graft applications with continued improvement in wound dimensions. He returns today for re-evaluation and potential graft application. Review of Systems Constitutional: Constitutional: Denies chills, Denies fatigue, Denies night sweats and Denies weakness Eyes: Eyes: Denies blurry vision and Denies photophobia ENT: Reports system reviewed and no additional complaints, except as documented and Reports Normal hearing present Cardiovascular: Cardiovascular: Denies chest pain, Denies diaphoresis, Denies leg ulcers and Denies dyspnea on exertion Respiratory: Respiratory: Reports no additional respiratory complaints, Denies cough and Denies dyspnea on exertion Gastrointestinal: Gastrointestinal: Reports no additional gastrointestinal complaints, Denies abdominal pain, Denies constipation, Denies nausea and Denies vomiting Genitourinary: Genitourinary: Reports no additional male genitourinary complaints, Denies hematuria and Denies urinary frequency Musculoskeletal: Musculoskeletal: Reports no additional musculoskeletal complaints and Reports as per HPI Integumentary/Breasts: Skin/Breast: Reports as per HPI Neurologic: Reports system reviewed and no additional complaints, except as documented and Reports Normal hearing present Psychiatric: Psychiatric: Reports no additional psychiatric complaints Endocrine: Endocrine: Reports no additional endocrine complaints, Denies change in body appearance, Denies excessive sweating, Denies polyphagia, Denies polydipsia and Denies polyuria [facility] Past Medical History Medical History Anemia Elevated prostate specific antigen (PSA) Gout Hyperglycemia Hyperlipidemia Hypertension Hypothyroidism MIGNON (obstructive sleep apnea) Osteoarthritis Prepatellar bursitis Pulmonary fibrosis Smoking Tobacco abuse Surgical History Surgical History H/O ventral hernia repair History of incision and drainage Left knee prepatellar bursa x3 Family History Family History Other No significant family history Social History Social History (Updated 10/26/20 @ 14:38 by FRANCISCO Peterson) Social History: Mr. Brownlee lives in [place], [place] with his , Sonja Brownlee. He has one child. He retired 5 years ago from [employer]. He wishes to be a full code and he has designated his , Sonja Brownlee, as his surrogate medical decision maker. He quit smoking on 05/01/20. He denies alcohol and illicit substance use. Smoking packs per day: 1 Smoking cigarettes per day: 20.0 Years smoked: 10 Smoking pack-years: 10.00 Smoking status: Former smoker (1-2 minutes spent) Tobacco type: cigarettes Smoking end date: 05/01/20 Alcohol intake: never Substance use: never Substance use type: does not use Gender identity (if verbalized by the patient): Male Spiritual care concerns: No Meds Home Medications and Allergies Home Medications Medication Instructions Recorded Confirmed Type tiotropium bromide 2.5 See Rx Instructions .ROUTE 07/26/20 09/17/20 Rx mcg/actuation mist for inhalation .COMPLEX #4 g allopurinol 100 mg tablet See Rx Instructions .ROUTE 08/02/20 09/17/20 Rx .COMPLEX #90 tablet pravastatin
--- NOTE | 2020-10-26 14:42 | PM.OP ---
Procedure Note - Brief Procedure Note - Brief Date of procedure: 10/26/20 Pre-op diagnosis: left knee open wound with wound vac application left prepatellar bursa with postoperative hematoma and complicated wound. Post-op diagnosis: same Procedure performed: Graft application Description of procedure: Amnioexcel graft applied to the left pre patella bursa wound. [id number], Size 1.5x1.5cm, Product ID: [id number]. Exp: 09/01/2024 Skin prepped with sterile alcohol. Graft applied without complications. Mepitel One placed over top of graft for to ensure placement. Anesthesia: none Surgeon: FRANCISCO Peterson Estimated blood loss (mL): 0 Tourniquet time (min): 0 IV fluids (mL): 0 Urine output (mL): 0 Drains: No Packing: No Pathology: none sent Complications: No immediate complications Condition: stable Disposition: other (home )
--- NOTE | 2020-11-05 08:49 | PM.IMHP ---
H&P: HPI History of Present Illness Date/Time: 11/05/20 08:49 Chief Complaint: Left anterior knee post op wound Narrative: Kvng Brownlee is a 70 year old male presents [facility] wound clinic 1.5 weeks status post graft application to the left prepatellar bursa space. The patient underwent an I&D of the left prepatellar bursa on June 01, [address] Miguel which was then complicated by a postoperative hematoma. He underwent several weeks of wound VAC changes with improvement in wound. His wound improvement then slowed and he was indicated for graft applications. He has now undergone 3 graft applications with continued improvement in wound dimensions. He returns today for re-evaluation. Review of Systems Constitutional: Constitutional: Denies chills, Denies fatigue, Denies night sweats and Denies weakness Eyes: Eyes: Denies blurry vision and Denies photophobia ENT: Reports system reviewed and no additional complaints, except as documented and Reports Normal hearing present Cardiovascular: Cardiovascular: Denies chest pain, Denies diaphoresis, Denies leg ulcers and Denies dyspnea on exertion Respiratory: Respiratory: Reports no additional respiratory complaints, Denies cough and Denies dyspnea on exertion Gastrointestinal: Gastrointestinal: Reports no additional gastrointestinal complaints, Denies abdominal pain, Denies constipation, Denies nausea and Denies vomiting Genitourinary: Genitourinary: Reports no additional male genitourinary complaints, Denies hematuria and Denies urinary frequency Musculoskeletal: Musculoskeletal: Reports no additional musculoskeletal complaints and Reports as per HPI Integumentary/Breasts: Skin/Breast: Reports as per HPI Neurologic: Reports system reviewed and no additional complaints, except as documented and Reports Normal hearing present Psychiatric: Psychiatric: Reports no additional psychiatric complaints Endocrine: Endocrine: Reports no additional endocrine complaints, Denies change in body appearance, Denies excessive sweating, Denies polyphagia, Denies polydipsia and Denies polyuria [facility] Past Medical History Medical History Anemia Elevated prostate specific antigen (PSA) Gout Hyperglycemia Hyperlipidemia Hypertension Hypothyroidism MIGNON (obstructive sleep apnea) Osteoarthritis Prepatellar bursitis Pulmonary fibrosis Smoking Tobacco abuse Surgical History Surgical History H/O ventral hernia repair History of incision and drainage Left knee prepatellar bursa x3 Family History Family History Other No significant family history Social History Social History Social History: Mr. Brownlee lives in [place], [place] with his , Sonja Brownlee. He has one child. He retired 5 years ago from [employer]. He wishes to be a full code and he has designated his , Sonja Brownlee, as his surrogate medical decision maker. He quit smoking on 05/01/20. He denies alcohol and illicit substance use. Smoking packs per day: 1 Smoking cigarettes per day: 20.0 Years smoked: 10 Smoking pack-years: 10.00 Smoking status: Former smoker (1-2 minutes spent) Tobacco type: cigarettes Smoking end date: 05/01/20 Alcohol intake: never Substance use: never Substance use type: does not use Gender identity (if verbalized by the patient): Male Spiritual care concerns: No Meds Home Medications and Allergies Home Medications Medication Instructions Recorded Confirmed Type tiotropium bromide 2.5 See Rx Instructions .ROUTE 07/26/20 09/17/20 Rx mcg/actuation mist for inhalation .COMPLEX #4 g pravastatin 40 mg tablet See Rx Instructions .ROUTE 08/17/20 09/17/20 Rx .COMPLEX #90 tablet levothyroxine 150 mcg tablet See Rx Instructio
--- NOTE | 2020-11-09 09:21 | PM.IMHP ---
H&P: HPI History of Present Illness Date/Time: 11/09/20 09:21 Chief Complaint: Left prepatellar bursa wound dehiscence Narrative: Kvng Brownlee is a 70 year old male Narrative presents [facility] wound clinic 2.5 weeks status post graft application to the left prepatellar bursa space. The patient underwent an I&D of the left prepatellar bursa on June 01, [address] Miguel which was then complicated by a postoperative hematoma. He underwent several weeks of wound VAC changes with improvement in wound. His wound improvement then slowed and he was indicated for graft applications. He has now undergone 3 graft applications with continued improvement in wound dimensions. He returns today for re-evaluation. reports no interim complaints. No fever or chills. No pain. He has been doing daily dressing changes with minimal drainage. Review of Systems Constitutional: Constitutional: Denies chills, Denies fatigue, Denies night sweats and Denies weakness Eyes: Eyes: Denies blurry vision and Denies photophobia ENT: Reports system reviewed and no additional complaints, except as documented and Reports Normal hearing present Cardiovascular: Cardiovascular: Denies chest pain, Denies diaphoresis, Denies leg ulcers and Denies dyspnea on exertion Respiratory: Respiratory: Reports no additional respiratory complaints, Denies cough and Denies dyspnea on exertion Gastrointestinal: Gastrointestinal: Reports no additional gastrointestinal complaints, Denies abdominal pain, Denies constipation, Denies nausea and Denies vomiting Genitourinary: Genitourinary: Reports no additional male genitourinary complaints, Denies hematuria and Denies urinary frequency Musculoskeletal: Musculoskeletal: Reports no additional musculoskeletal complaints and Reports as per HPI Integumentary/Breasts: Skin/Breast: Reports as per HPI Neurologic: Reports system reviewed and no additional complaints, except as documented and Reports Normal hearing present Psychiatric: Psychiatric: Reports no additional psychiatric complaints Endocrine: Endocrine: Reports no additional endocrine complaints, Denies change in body appearance, Denies excessive sweating, Denies polyphagia, Denies polydipsia and Denies polyuria PMFSH Past Medical History Medical History Anemia Elevated prostate specific antigen (PSA) Gout Hyperglycemia Hyperlipidemia Hypertension Hypothyroidism MIGNON (obstructive sleep apnea) Osteoarthritis Prepatellar bursitis Pulmonary fibrosis Smoking Tobacco abuse Surgical History Surgical History H/O ventral hernia repair History of incision and drainage Left knee prepatellar bursa x3 Family History Family History Other No significant family history Social History Social History Social History: Mr. Brownlee lives in [place], [place] with his , Sonja Brownlee. He has one child. He retired 5 years ago from [employer]. He wishes to be a full code and he has designated his , Sonja Brownlee, as his surrogate medical decision maker. He quit smoking on 05/01/20. He denies alcohol and illicit substance use. Smoking packs per day: 1 Smoking cigarettes per day: 20.0 Years smoked: 10 Smoking pack-years: 10.00 Smoking status: Former smoker (1-2 minutes spent) Tobacco type: cigarettes Smoking end date: 05/01/20 Alcohol intake: never Substance use: never Substance use type: does not use Gender identity (if verbalized by the patient): Male Spiritual care concerns: No Meds Home Medications and Allergies Home Medications Medication Instructions Recorded Confirmed Type tiotropium bromide 2.5 See Rx Instructions .ROUTE 07/26/20 09/17/20 Rx mcg/actuation mist for inhalation .COMPLEX
--- NOTE | 2020-11-09 09:25 | PM.PROC ---
Procedure Note - Detailed Date of procedure: 11/09/20 Pre-op diagnosis: left knee open wound with wound vac application Left knee prepatellar bursa wound dehiscence Post-op diagnosis: same Procedure performed: left knee debridement of skin and subcutaneous tissue. Application graft. Description of procedure: Patient identified and correct side marked. Informed consent given by patient. Left knee prepped with alcohol prep solution. Fifteen blade knife used to debride the skin and subcutaneous tissue from the left knee 1 x 1 cm. Bleeding controlled with pressure. Amniotic allograft applied to the wound. Sterile dressing applied. Patient tolerated without incident Implants: Implants: Amnioexcel ID [id number], Exp 09/01/2024, Size 1.5X1.5cm, Product [id number] Anesthesia: none Surgeon: Som Parish MD Postdoctoral Scholar: FRANCISCO King Estimated blood loss (mL): 1 Tourniquet time (min): 0 Drains: No Packing: No Pathology: none sent Complications: None Condition: stable Disposition: other ( discharged to home under self-care with daily dressing changes.)
--- NOTE | 2020-11-23 08:58 | PM.IMHP ---
H&P: HPI History of Present Illness Date/Time: 11/23/20 08:58 Chief Complaint: Left anterior prepatellar bursitis. Narrative: Kvng Brownlee is a 70 year old male who presents [facility] today for follow-up of left knee prepatellar bursitis and wound. The patient was hospitalized in July for prepatellar bursitis infection and underwent an I&D at that time. He has subsequently had difficulty with wound closure and has undergone 3 graft applications. He follows up today for re-evaluation of the wound bed. He denies fever, chills, night sweats, nausea, vomiting or diarrhea. He was seen in the orthopedic office on 11/19 for lower extremity swelling. He was sent to have a stat venous Doppler at [facility] which was negative for a DVT. It was recommended that he contact his primary care provider for evaluation of lower extremity edema. Per Dr. Craft, the patient with started on Lasix and potassium. She is awaiting further labs for workup. Review of Systems Constitutional: Constitutional: Denies chills, Denies fatigue, Denies night sweats and Denies weakness Eyes: Eyes: Denies blurry vision and Denies photophobia ENT: Reports system reviewed and no additional complaints, except as documented and Reports Normal hearing present Cardiovascular: Cardiovascular: Denies chest pain, Denies diaphoresis, Denies leg ulcers and Denies dyspnea on exertion Respiratory: Respiratory: Reports no additional respiratory complaints, Denies cough and Denies dyspnea on exertion Gastrointestinal: Gastrointestinal: Reports no additional gastrointestinal complaints, Denies abdominal pain, Denies constipation, Denies nausea and Denies vomiting Genitourinary: Genitourinary: Reports no additional male genitourinary complaints, Denies hematuria and Denies urinary frequency Musculoskeletal: Musculoskeletal: Reports no additional musculoskeletal complaints and Reports as per HPI Integumentary/Breasts: Skin/Breast: Reports as per HPI Neurologic: Reports system reviewed and no additional complaints, except as documented and Reports Normal hearing present Psychiatric: Psychiatric: Reports no additional psychiatric complaints Endocrine: Endocrine: Reports no additional endocrine complaints, Denies change in body appearance, Denies excessive sweating, Denies polyphagia, Denies polydipsia and Denies polyuria PMFSH Past Medical History Medical History Anemia Elevated prostate specific antigen (PSA) Gout Hyperglycemia Hyperlipidemia Hypertension Hypothyroidism MIGNON (obstructive sleep apnea) Osteoarthritis Prepatellar bursitis Pulmonary fibrosis Smoking Tobacco abuse Surgical History Surgical History H/O ventral hernia repair History of incision and drainage Left knee prepatellar bursa x3 Family History Family History Other No significant family history Social History Social History Social History: Mr. Brownlee lives in [place], [place] with his , Sonja Brownlee. He has one child. He retired 5 years ago from [employer]. He wishes to be a full code and he has designated his , Sonja Brownlee, as his surrogate medical decision maker. He quit smoking on 05/01/20. He denies alcohol and illicit substance use. Smoking packs per day: 1 Smoking cigarettes per day: 20.0 Years smoked: 10 Smoking pack-years: 10.00 Smoking status: Former smoker Tobacco type: cigarettes Smoking end date: 05/01/20 Alcohol intake: never Substance use: never Substance use type: does not use Gender identity (if verbalized by the patient): Male Spiritual care concerns: No Agree to blood products: Yes Meds Home Medications and Allergies Home Medications Medication Instructions Christoph
== END 2020-12-16 23:59 | disposition home or self-care (01) ==
LOC: ANHWOC 07:27
PROVIDERS: PCP Family Medicine; Referring Provider Orthopaedic Surgery; Visit Provider Nurse Practitioner Family
DX: Z48.817 Encounter for surgical aftercare following surgery on the skin and subcutaneous tissue (principal)
CPT/HCPCS: 15271; 99211; 99212; A9270; G0463; Q4137

== ENCOUNTER 2021-10-05 09:06 | Outpatient (CLI) | payer MEDICARE, MEDICAID, SELFPAY ==
--- NOTE | ~2021-10-05 | CT_ITS ---
EXAMINATION: CT lung screening DATE: 10/05/2021 09:25 INDICATION: Z87.891 - Personal history of nicotine dependence TECHNIQUE: Computed tomography (CT) of the chest was performed without intravenous contrast. Addition al 3D reconstructions utilizing coronal maximum intensity projection (MIP) were performed. Automated exposure control and iterative reconstruction technique were employed. The dose-length product was 31 7.19 mGy-cm. COMPARISON: 09/14/2020 FINDINGS: Mild to moderate upper lung predominant emphysema. A few scattered small calcified pulmonary nodules along with calcified left hilar lymph nodes consistent with old granulomatous disease. No interval ch fred in size or number of multiple 5 mm smaller ulnar nodules predominantly in the right upper lobe w ith a few additional scattered throughout the remainder of both lungs. Unchanged pattern of mild grou ndglass opacity and some irregular septal line thickening in the upper lobes and to lesser degree in the lingula. No pneumonia, pulmonary edema or pleural effusion. 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 Heart size is normal. Atherosclerotic coronary artery calcific location. Prominent aortic valve kerry cification. No pericardial effusion. Thoracic aorta is normal in caliber. Mild enlargement of the lef t and right main pulmonary arteries consistent with pulmonary arterial hypertension. No pathologicall y enlarged thoracic lymphadenopathy. Several splenic calcifications consistent with old granulomatous disease. Visualized upper abdomen is otherwise unremarkable. Mild upper thoracic levoscoliosis with moderate thoracic spondylosis. IMPRESSION: 1. Lung-RADS category 2: Benign appearance or behavior. Continue annual screening with noncontrast lo w-dose chest CT in 12 months. Reviewed, dictated and finalized at location B. E HEAD IMPRESSION: 1. Lung-RADS category 2: Benign appearance or behavior. Continue annual screeni ng with noncontrast low-dose chest CT in 12 months.
== END 2021-10-05 09:07 | disposition home or self-care (01) ==
LOC: ANHIMG 09:08
PROVIDERS: PCP Family Medicine; Visit Provider Nurse Practitioner Family
DX: Z87.891 Personal history of nicotine dependence (principal)
CPT/HCPCS: 71271

== ENCOUNTER 2022-02-04 03:54 | Emergency (ER) | payer MEDICARE, MEDICAID, SELFPAY ==
[2022-02-04 03:58] VITALS: BP 168/72; PULSE 73; RESP 18; TEMP 36.6; O2SAT 97
--- NOTE | 2022-02-04 04:44 | ED.GENADULT ---
HPI - General Adult General Chief complaint: Extremity Injury, Lower Stated complaint: Right leg pain Time Seen by Provider: 02/04/22 04:22 History of Present Illness HPI narrative: Patient is a 71-year-old gentleman who presents to the emergency department with chief complaint of right thigh pain. Patient states he was doing an exercise and felt a pulling in his medial thigh and on the posterior aspect of his thigh. Patient states that in her he walks and is painful at rest. Patient states it feels as though he pulled a muscle. Patient denies local trauma denies bruising patient denies chest pain denies short of breath reports that it does not feel swollen. Patient states that he is only taken Tylenol for this and the pain has not. Patient denies foot drop denies focal neurological deficit denies saddle anesthesia or bowel or bladder dysfunction. Related Data Allergies Allergy/AdvReac Type Severity Reaction Status Date / Time No Known Allergies Allergy Verified 01/16/22 13:33 Review of Systems Review of Systems: A 10 system review of systems was completed on the patient and is negative except for what is stated in the HPI. Nursing and ancillary documentation was reviewed. [facility] Past Medical History Medical History Anemia Elevated prostate specific antigen (PSA) Gout Hyperglycemia Hyperlipidemia Hypertension Hypothyroidism MIGNON (obstructive sleep apnea) Osteoarthritis Prepatellar bursitis Pulmonary fibrosis Smoking Tobacco abuse Surgical History Surgical History H/O ventral hernia repair History of incision and drainage Left knee prepatellar bursa x3 Family History Family History Other No significant family history Social History Social History Social History: Mr. Brownlee lives in [place], [place] with his , Sonja Brownlee. He has one child. He retired 5 years ago from [employer]. He wishes to be a full code and he has designated his , Sonja Brownlee, as his surrogate medical decision maker. He denies alcohol and illicit substance use. Smoking packs per day: 1.5 Smoking cigarettes per day: 30.0 Years smoked: 30 Smoking pack-years: 45.00 Smoking status: Former smoker Tobacco type: cigarettes Smoking end date: 05/01/20 Alcohol intake: never Substance use: never Substance use type: does not use Gender identity (if verbalized by the patient): Male Spiritual care concerns: No Agree to blood products: Yes Exam Narrative: GENERAL: Well-appearing, well-nourished, and in no acute distress. HEAD: Normocephalic, atraumatic. EYES: PERRLA and EOMI. ENT: Nares clear, no rhinorrhea or epistaxis. Mucous membranes moist. NECK: Supple. CHEST: Clear to auscultation. No respiratory distress. HEART: Regular rate and rhythm. No murmur heard. Normal peripheral pulses. ABDOMEN: Soft, nontender, nondistended, normal active bowel sounds. EXTREMITIES: Normal range of motion. No edema. There is tenderness to palpation in the medial right thigh there is no discoloration no bruising SKIN: Warm, dry, no rash. NEURO: No focal deficits. Alert and oriented x3. PSYCH: Normal mood and affect. Course Course Emergency Course: Basic screening labs including a D-dimer will be obtained on the patient. If the D-dimer is elevated the patient will be given a dose of Lovenox in the emergency department otherwise patient will not be anticoagulated but will be scheduled for an ultrasound to evaluate for possibility of DVT. Differential includes DVT muscle strain. Patient will go undergo ultrasound as an outpatient to evaluate for DVT and the patient was started on EXTR. Vital Signs Vital signs: Vital Signs Temperature 36.6 C 02/04/22 03:58 Pul
[2022-02-04] MEDS: ORPHENADRINE CITRATE 100 MG TABLET.ER PO (04:58)
[2022-02-04 05:06] LABS: Basophils Percent Auto 0.4 % (0.2-1.2); Eosinophils Absolute Auto 0.1 K/mm3 (0-0.3); Eosinophils Percent Auto 0.8 % (0-4.4); Hematocrit 49.3 % (42.0-52.0); Hemoglobin 15.8 g/dL (14.0-18.0); Immature Granulocyte Absolute 0.03 K/mm3 (0.00-0.031); Immature Granulocyte Percent A 0.3 % (0-0.5); Lymphocytes Absolute Auto 0.99 K/mm3 (0.9-3.2); Lymphocytes Percent Auto 8.8 % (18.3-44.2); Mean Corpuscular Hemoglobin 28.8 pg (26-34); Mean Corpuscular Volume 89.8 fl (80-100); Mean Platelet Volume 12.3 fl (7.4-10.4); Monocytes Absolute Auto 0.8 K/mm3 (0.1-0.6); Monocytes Percent Auto 7.1 % (2.6-8.5); Neutrophils Absolute Auto 9.3 K/mm3 (1.3-6.7); Neutrophils Percent Auto 82.6 % (45.5-73.1); Platelet Count Result 140 k/mm3 (150-375); Red Blood Count 5.49 M/mm3 (4.6-6.20); Red Cell Distribution Width 12.7 % (11.5-14.5); White Blood Count 11.2 K/mm3 (4.5-10.0)
[2022-02-04 05:16] LABS: Alanine Aminotransferase 16 U/L (4-50); Albumin Level 4.5 g/dL (3.5-5.1); Alkaline Phosphatase 72 U/L (38-126); Anion Gap 6 mmol/L (8-16); Aspartate Amino Transferase 22 U/L (17-59); Bilirubin,Total 0.5 mg/dL (0.2-1.3); Blood Urea Nitrogen 16 mg/dL (9-20); Calcium 9.2 mg/dL (8.4-10.2); Carbon Dioxide 28 mmol/L (22-30); Chloride 104 mmol/L (98-107); Estimated CRCL calculation 108 ml/min; Estimated Glomerular Filt Rate > 60; Glucose 122 mg/dL (65-110); Potassium 4.1 mmol/L (3.4-5.0); Sodium 138 mmol/L (137-145)
[2022-02-04 05:22] LABS: Prothrombin Time 13.1 Seconds (11.1-14.7)
[2022-02-04 05:23] LABS: Partial Thromboplastin Time 34.2 SECONDS (22.3-36.8)
[2022-02-04 05:25] LABS: D Dimer 0.38 ug/mL (<0.48)
--- NOTE | 2022-02-04 09:17 | PC.NURSE ---
Dr. Pacheco had extensive conversation with patient and , Sonja, regarding US results. Patient informed that he had a DVT and that Dr. Pacheco would like to start him on a medication for this. Medication being Xarelto. Dr. Pacheco explained all risks and benefits of medication. Patient verbalized understanding and denied any current active bleeding. This medication was called into the [facility] pharmacy in [place], [place] per patient request.
== END 2022-02-04 06:00 | disposition home or self-care (01) ==
LOC: ANHED 05:07
PROVIDERS: Emergency Provider Emergency Medicine; PCP Family Medicine
DX: S76.911A Strain of unspecified muscles, fascia and tendons at thigh level, right thigh, initial encounter (principal); E78.5 Hyperlipidemia, unspecified; I10 Essential (primary) hypertension; E03.9 Hypothyroidism, unspecified; G47.33 Obstructive sleep apnea (adult) (pediatric); M19.90 Unspecified osteoarthritis, unspecified site; M10.9 Gout, unspecified; Z86.2 Personal history of diseases of the blood and blood-forming organs and certain disorders involving the immune mechanism; Z87.891 Personal history of nicotine dependence; X50.9XXA Other and unspecified overexertion or strenuous movements or postures, initial encounter; Y93.B9 Activity, other involving muscle strengthening exercises
CPT/HCPCS: 36415; 80053; 85025; 85380; 85610; 85730; 93971; 99283; A9270

== ENCOUNTER 2022-02-04 07:21 | Outpatient (CLI) | payer MEDICARE, MEDICAID, SELFPAY ==
--- NOTE | ~2022-02-04 | US_ITS ---
EXAMINATION: US venous doppler LE RT DATE: 02/04/2022 08:24 INDICATION: Right lower limb pain and swelling TECHNIQUE: Gabriel scale images without and with compression and Doppler images of the right lower extre mity veins were obtained. COMPARISON: 07/12/2020 FINDINGS: There is thrombosis in the peroneal veins and one of the two posterior tibial veins. The ri ght common femoral vein, profunda femoral vein, femoral vein, popliteal vein, and greater saphenous v ein are patent. IMPRESSION: 1. Thrombosis in the peroneal veins and one of two posterior tibial veins. These findings were discussed with Dr. Pacheco in the Emergency Department at 0843 hours on 02/04/2022 . Reviewed, dictated and finalized at location A. IMPRESSION: 1. Thrombosis in the peroneal veins and one of two posterior tibial veins. These findings were discussed with Dr. Pacheco in the Emergency Department at 0843 hours on 02/04/2022.
== END 2022-02-04 07:22 | disposition home or self-care (01) ==
PROVIDERS: PCP Family Medicine; Visit Provider Emergency Medicine
DX: M79.89 Other specified soft tissue disorders (principal); I82.441 Acute embolism and thrombosis of right tibial vein
CPT/HCPCS: 93971

== ENCOUNTER 2022-05-15 15:30 | Outpatient (CLI) | payer MEDICARE, MEDICAID, SELFPAY ==
--- NOTE | ~2022-05-15 | US_ITS ---
EXAMINATION: US venous doppler LE RT DATE: 05/15/2022 16:48 INDICATION: Other specified soft tissue disorders. Right lower limb localized swelling. TECHNIQUE: Grayscale ultrasound images without and with compression and Doppler ultrasound images of the right lower extremity veins were obtained. COMPARISON: Ultrasound 02/04/22 FINDINGS: The visualized portions of right common femoral vein, profunda (deep) femoral vein, femoral vein, pop liteal vein, peroneal veins, posterior tibial veins, and greater saphenous vein outflow are patent. IMPRESSION: 1. No deep venous thrombosis. Reviewed, dictated and finalized at location A.
== END 2022-05-15 15:31 | disposition home or self-care (01) ==
PROVIDERS: PCP Family Medicine; Visit Provider Family Medicine
DX: M79.89 Other specified soft tissue disorders (principal); I82.409 Acute embolism and thrombosis of unspecified deep veins of unspecified lower extremity
CPT/HCPCS: 93971

== ENCOUNTER 2022-08-14 08:23 | Outpatient (CLI) | payer MEDICARE, MEDICAID, SELFPAY ==
[2022-08-16 21:07] LABS: Antithrombin III Activity 108 % normal (80-135)
[2022-08-17 19:06] LABS: Homocysteine 13.1 umol/L (<11.4)
[2022-08-18 21:54] LABS: Lupus dRVVT Screen 39 sec (<=45); PTT-LA Screen 39 sec (<=40)
[2022-09-01 15:41] LABS: Lupus dRVVT Additional Testing Not Indicated
== END 2022-08-14 08:24 | disposition home or self-care (01) ==
PROVIDERS: PCP Family Medicine; Visit Provider Internal Medicine Hematology & Oncology
DX: D68.52 Prothrombin gene mutation (principal); R53.83 Other fatigue
CPT/HCPCS: 36415; 81240; 83090; 85300; 85303; 85306; 85613; 85730

== ENCOUNTER 2022-10-09 10:29 | Outpatient (CLI) | payer MEDICARE, MEDICAID, SELFPAY ==
--- NOTE | ~2022-10-09 | CT_ITS ---
EXAMINATION: CT lung screening DATE: 10/09/2022 10:54 INDICATION: Lung cancer screening TECHNIQUE: Computed tomography (CT) of the chest was performed without intravenous contrast. Addition al 3D reconstructions utilizing coronal maximum intensity projection (MIP) were performed. Automated exposure control and iterative reconstruction technique were employed. The dose-length product was 35 6.78 mGy-cm. COMPARISON: 10/05/2021 and 09/15/2019 FINDINGS: Mild to moderate upper lung predominant emphysema. Again seen are a few scattered small calcified pul monary nodules along with calcified left hilar lymph nodes and a few splenic calcifications consisten t with old granulomatous disease. No interval change in size or number of a few 5-6 mm smaller pulmon gi nodules predominantly in the right upper lobe and subpleural bilateral lower lobes with a few add itional scattered throughout the remainder of both lungs. Unchanged pattern of mild groundglass opaci ty and some irregular septal line thickening in the upper lobes and to lesser degree in the lingula. No new or enlarging pulmonary nodules, pneumonia, pulmonary edema or pleural effusion. 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 Heart size is normal. Atherosclerotic coronary artery calcification. Promine nt aortic valve calcification. No pericardial effusion. Thoracic aorta is normal in caliber. Mild enl argement of the left and right main pulmonary arteries consistent with pulmonary arterial hypertensio n. No pathologically enlarged thoracic lymphadenopathy. Visualized upper abdomen is unremarkable. Mil d upper thoracic levoscoliosis with moderate thoracic spondylosis. IMPRESSION: 1. Lung-RADS category 2: Benign appearance or behavior. Continue annual screening with noncontrast lo w-dose chest CT in 12 months. Reviewed, dictated and finalized at location A. RY CLERK IMPRESSION: 1. Lung-RADS category 2: Benign appearance or behavior. Continue annual screeni ng with noncontrast low-dose chest CT in 12 months.
== END 2022-10-09 10:30 | disposition home or self-care (01) ==
LOC: ANHIMG 10:33
PROVIDERS: PCP Family Medicine; Visit Provider Physician Assistant
DX: Z12.2 Encounter for screening for malignant neoplasm of respiratory organs (principal); Z87.891 Personal history of nicotine dependence
CPT/HCPCS: 71271

== ENCOUNTER 2022-12-05 09:16 | Outpatient (CLI) | payer MEDICARE, MEDICAID, SELFPAY ==
[2022-12-05 09:34] LABS: Basophils Percent Auto 0.3 % (0.2-1.2); Eosinophils Absolute Auto 0.1 K/mm3 (0-0.3); Hematocrit 44.2 % (42.0-52.0); Hemoglobin 14.3 g/dL (14.0-18.0); Immature Granulocyte Absolute 0.02 K/mm3 (0.00-0.031); Immature Granulocyte Percent A 0.3 % (0-0.5); Lymphocytes Percent Auto 12.6 % (18.3-44.2); Mean Corpuscular HGB Conc 32.4 g/dl (32-36); Mean Corpuscular Hemoglobin 28.3 pg (26-34); Mean Corpuscular Volume 87.4 fl (80-100); Mean Platelet Volume 12.3 fl (7.4-10.4); Monocytes Absolute Auto 0.6 K/mm3 (0.1-0.6); Monocytes Percent Auto 8.5 % (2.6-8.5); Neutrophils Absolute Auto 5.5 K/mm3 (1.3-6.7); Neutrophils Percent Auto 77.3 % (45.5-73.1); Platelet Count Result 148 k/mm3 (150-375); Red Blood Count 5.06 M/mm3 (4.6-6.20); Red Cell Distribution Width 12.9 % (11.5-14.5); White Blood Count 7.2 K/mm3 (4.5-10.0)
[2022-12-05 10:22] LABS: Anion Gap 6 mmol/L (8-16); Blood Urea Nitrogen 17 mg/dL (9-20); Carbon Dioxide 30 mmol/L (22-30); Chloride 103 mmol/L (98-107); Estimated Glomerular Filt Rate > 60; Glucose 102 mg/dL (65-110); Potassium 3.9 mmol/L (3.4-5.0); Sodium 139 mmol/L (137-145)
[2022-12-08 11:19] LABS: Homocysteine 12.2 umol/L (<11.4)
== END 2022-12-05 09:17 | disposition home or self-care (01) ==
LOC: ANHLAB 09:18
PROVIDERS: PCP Family Medicine; Visit Provider Internal Medicine Hematology & Oncology
DX: D68.69 Other thrombophilia (principal)
CPT/HCPCS: 36415; 80048; 83090; 85025

== ENCOUNTER 2023-03-20 08:17 | Outpatient (CLI) | payer MEDICARE, MEDICAID, SELFPAY ==
[2023-03-20 11:19] LABS: Alanine Aminotransferase 18 U/L (6-50); Albumin Level 4.4 g/dL (3.5-5.1); Alkaline Phosphatase 64 U/L (38-126); Anion Gap 6 mmol/L (8-16); Aspartate Amino Transferase 22 U/L (17-59); Bilirubin,Total 0.8 mg/dL (0.2-1.3); Blood Urea Nitrogen 17 mg/dL (9-20); Carbon Dioxide 30 mmol/L (22-30); Chloride 101 mmol/L (98-107); Estimated Glomerular Filt Rate > 60; Glucose 107 mg/dL (65-110); Potassium 3.8 mmol/L (3.4-5.0); Sodium 137 mmol/L (137-145)
[2023-03-22 18:51] LABS: Homocysteine 13.1 umol/L (<11.4)
== END 2023-03-20 08:18 | disposition home or self-care (01) ==
LOC: ANHLAB 08:20
PROVIDERS: PCP Nurse Practitioner Family; Visit Provider Internal Medicine Hematology & Oncology
DX: D68.69 Other thrombophilia (principal)
CPT/HCPCS: 36415; 80053; 83090

== ENCOUNTER 2023-06-18 08:33 | Outpatient (CLI) | payer MEDICARE, SELFPAY ==
[2023-06-21 20:36] LABS: Homocysteine 10.5 umol/L (<11.4)
== END 2023-06-18 08:34 | disposition home or self-care (01) ==
PROVIDERS: PCP Nurse Practitioner Family; Visit Provider Internal Medicine Hematology & Oncology
DX: D68.69 Other thrombophilia (principal)
CPT/HCPCS: 36415; 83090

== ENCOUNTER 2023-10-10 08:31 | Outpatient (CLI) | payer MEDICARE, SELFPAY ==
--- NOTE | ~2023-10-10 | CT_ITS ---
CT Scan of the Chest without Contrast: Clinical Indication: Lung cancer screening, personal history of nicotine dependence Technique: Contiguous sections were acquired throughout the chest without intravenous contrast. Dose reduction technique was used on this scan by utilizing automated exposure control and iterative recon struction technique. The dose-length product (DLP) was 514.55 mGy-cm. COMPARISON: 10/09/2022 Findings: There is no evidence of any significant mediastinal, hilar or axillary lymphadenopathy. There are ath erosclerotic calcifications of the aorta and coronary arteries. There is no evidence of pleural or pericardial effusion. Emphysematous and patchy ground glass opacity in the lungs is similar to prior exam. They will 4 mm l eft basilar pleural-based nodule. Images through the upper abdomen reveal no abnormalities. Impression: Lung RADS 2: Benign appearance. 12 month follow-up screening CT advised. Stable emphysematous change and patchy ground glass opacity. Correlate for chronic interstitial disea se. Reviewed, dictated and finalized at location . TENDER PAPER MACHINE Impression: Lung RADS 2: Benign appearance. 12 month follow-up screening CT advised. Stable emphysematous change and patchy ground glass opacity. Correlate for safety engineer ed interstitial disease.
== END 2023-10-10 08:32 | disposition home or self-care (01) ==
LOC: ANHIMG 08:35
PROVIDERS: PCP Nurse Practitioner Family; Visit Provider Physician Assistant
DX: Z12.2 Encounter for screening for malignant neoplasm of respiratory organs (principal); Z87.891 Personal history of nicotine dependence; J43.9 Emphysema, unspecified
CPT/HCPCS: 71271

== ENCOUNTER 2023-11-06 10:25 | Outpatient (CLI) | payer MEDICARE, SELFPAY ==
--- NOTE | 2023-11-06 12:53 | WPDSIXMINUTE ---
Six Minute Walk Procedure Procedure Performed Pulmonary Stress Test (6 min walk) Six Minute Walk Six Minute Walk: This is a 6 minute walk test. The test was performed and interpreted in accordance with the 2014 ERS/ATS task force guidelines. Of note, patient used a walker during this testing. Findings: The patient's resting room air oxygen saturation measured by pulse oximetry was 92% and heart rate was 70 bpm. Patient ambulated for 183 meters and oxygen saturation remained 90 to 94%. Heart rate at the end of the study was 94 bpm. The patient did not qualify for supplemental oxygen at rest or with ambulation. There are no prior studies for comparison.
--- NOTE | 2023-11-06 12:55 | P.PCNPFT_ITS ---
PFT Procedure Performed PFT Procedure Performed Spirometry with Pre/Post Bronchodilator Plethysmography (Lung Vol) Diffusing Cap (DLCO) Flow Vol Loop PFT Interpretation This is a pulmonary function test with pre and post-bronchodilator spirometry, plethysmography and diffusing capacity. The test was performed and results interpreted in accordance with the 2019 and 2005 ATS/ERS Task Force guidelines respectively using the Global Lung Function Initiative-2012 reference equations. Patient demonstrated good effort and cooperation. Reproducibility criteria were met. The quality of the pre bronchodilator spirometry maneuver was Grade A and post bronchodilator spirometry maneuver was Grade A. Of note, the thermoplastic technician reported the patient had an intermittent moist cough with phlegm production during the studies. Findings: Spirometry: There is 1 pre bronchodilator maneuver with a notched inspiratory and expiratory flow tracing, 1 maneuver with a mid expiratory pause an a notched inspiratory flow tracing and 1 normal maneuver. The post bronchodilator maneuvers demonstrate 3 normal expiratory flow tracing and 1 normal inspiratory flow tracing and 2 notched inspiratory flow tracings. The pre bronchodilator FVC is 3.13 L, 75% predicted. The pre bronchodilator FEV1 is 2.18 L, 70% predicted. The pre bronchodilator FEV1: FVC ratio 70%. The post bronchodilator FVC is 3.11 L, representing 1% decrease. The post bronchodilator FEV1 is 2.20 L, representing 1% increase. The post bronchodilator FEV1: FVC ratio is 71%. Plethysmography: The total lung capacity is 5.34 L, 76% predicted. The FVC is 2.60 L, 69% predicted. The residual volume is 2.22 L L, 88% predicted. Diffusing capacity: The diffusing capacity unadjusted for hemoglobin and carboxyhemoglobin is 15.3, 60% predicted. The diffusing capacity adjusted for alveolar volume is 3.62, 94% predicted. Impression: The patient demonstrated a notched inspiratory and expiratory flow tracing. The notched pattern has been described with coughing or tracheobronchomalacia. There is a mild restrictive ventilatory abnormality. The spirometry is normal without evidence of an obstructive abnormality. There is no significant improvement after inhaling a single dose of albuterol. The diffusing capacity unadjusted for hemoglobin and carboxyhemoglobin is moderately decreased and normalizes when adjusted for alveolar volume. There are no prior studies for comparison
== END 2023-11-06 10:26 | disposition home or self-care (01) ==
PROVIDERS: PCP Nurse Practitioner Family; Visit Provider Physician Assistant
DX: J44.9 Chronic obstructive pulmonary disease, unspecified (principal)
CPT/HCPCS: 94060; 94618; 94726; 94729

== ENCOUNTER 2023-12-24 21:55 | Emergency (ER) | payer MEDICARE, SELFPAY ==
[2023-12-24 21:58] VITALS: BP 165/76; PULSE 70; RESP 20; TEMP 36.5; O2SAT 97
[2023-12-24 23:47] VITALS: BP 183/86; PULSE 87; RESP 22; O2SAT 98
--- NOTE | 2023-12-25 00:53 | ED.EXTPRO ---
HPI - Extremity Problem General Chief complaint: Extremity Problem,Nontraumatic Stated complaint: leg pain Time Seen by Provider: 12/25/23 00:36 History of Present Illness HPI Narrative: Patient is a 73-year-old male who presents to the emergency department this complaining of left lower extremity swelling. Patient denies any previous history of DVTs and denies any history of CHF. Patient admits that he is on a water pill. He is also denying any pain to his left lower extremity. Patient denies any falls or injuries to his left lower extremity. Swelling has been present since Sunday. He is denying any shortness of breath, chest pain, fevers or chills at home, and is currently denying any additional symptoms. There are no other modifying, alleviating, or precipitating factors at this time. Related Data Allergies Allergy/AdvReac Type Severity Reaction Status Date / Time No Known Allergies Allergy Verified 12/24/23 23:44 Review of Systems Review of Systems: All systems are reviewed and are negative unless stated otherwise in the HPI. [facility] Past Medical History Medical History Anemia COPD (chronic obstructive pulmonary disease) DVT (deep venous thrombosis) Elevated prostate specific antigen (PSA) Gout Hyperglycemia Hyperlipidemia Hypertension Hypothyroidism MIGNON (obstructive sleep apnea) Osteoarthritis Prepatellar bursitis Pulmonary fibrosis Smoking Tobacco abuse Surgical History Surgical History H/O ventral hernia repair History of incision and drainage Left knee prepatellar bursa x3 Family History Family History Other No significant family history Social History Social History Social History: Mr. Brownlee lives in [place], [place] with his , Sonja Brownlee. He has one child. He retired 5 years ago from [employer]. He wishes to be a full code and he has designated his , Sonja Brownlee, as his surrogate medical decision maker. He denies alcohol and illicit substance use. Smoking packs per day: 1.5 Smoking cigarettes per day: 30.0 Years smoked: 30 Smoking pack-years: 45.00 Smoking status: Former smoker Tobacco type: cigarettes Smoking end date: 05/01/20 Alcohol intake: never Substance use: never Substance use type: does not use Living arrangements: with family Occupation/Education: retired Gender identity (if verbalized by the patient): Male Spiritual care concerns: No Agree to blood products: Yes Exam Narrative: General: Alert, awake, afebrile, in no acute distress. HEENT: PERRL, no rhinorrhea, no post nasal drip, oropharynx clear. Neck: Trachea midline, no JVD, no lymphadenopathy. Cardiovascular: Regular rate and rhythm, no murmurs, rubs or gallops, no peripheral edema. Respiratory: Clear to auscultation bilaterally, no tachypnea, no wheezing, no rhonchi, no rubs, no respiratory distress. Abdomen: Soft, nontender, nondistended, no rebound, no guarding, no peritoneal signs. Musculoskeletal: Left lower extremity swelling and edema, edema is nonpitting, no calf tenderness, no overlying erythema or rash, no evidence of cellulitis. Skin: No rashes or petechia, no signs of infection. Psychiatric: Alert and oriented, normal behavior and judgment for situation. Neurological: Alert and oriented to person, place, and time. Follows all commands. No focal deficits, speech is clear and fluent. Course Vital Signs Vital signs: Vital Signs Temperature 97.7 F 12/24/23 21:58 Pulse Rate 70 12/24/23 21:58 Respiratory Rate 20 12/24/23 21:58 Blood Pressure 165/76 H 12/24/23 21:58 Pulse Oximetry 97 12/24/23 21:58 Oxygen Delivery Room Air 12/24/23 21:58 Temperature 97.7 F 12/24/23 21:58 Pulse Rate 70 12/25/23 01:01 R
[2023-12-25 01:01] VITALS: BP 182/81; PULSE 70; RESP 20; O2SAT 94
== END 2023-12-25 01:01 | disposition home or self-care (01) ==
LOC: ANHED 12-25 00:53
PROVIDERS: Emergency Provider Emergency Medicine; PCP Nurse Practitioner Family
DX: R22.42 Localized swelling, mass and lump, left lower limb (principal); J44.9 Chronic obstructive pulmonary disease, unspecified; I10 Essential (primary) hypertension; E78.5 Hyperlipidemia, unspecified; E03.9 Hypothyroidism, unspecified; G47.33 Obstructive sleep apnea (adult) (pediatric); J84.10 Pulmonary fibrosis, unspecified; M19.90 Unspecified osteoarthritis, unspecified site; M10.9 Gout, unspecified; Z86.718 Personal history of other venous thrombosis and embolism
CPT/HCPCS: 99281

== ENCOUNTER 2023-12-25 07:43 | Outpatient (CLI) | payer MEDICARE, SELFPAY ==
--- NOTE | ~2023-12-25 | US_ITS ---
EXAMINATION: US venous doppler [facility] DATE: 12/25/2023 08:42 INDICATION: Left lower limb pain and swelling. Other specified soft tissue disorders. TECHNIQUE: Grayscale ultrasound images without and with compression and Doppler ultrasound images of the left lower extremity veins were obtained. COMPARISON: Ultrasound 11/19/2020 FINDINGS: The visualized portions of left common femoral vein, profunda (deep) femoral vein, femoral vein, popl iteal vein, peroneal veins, posterior tibial veins, and greater saphenous vein outflow are patent. IMPRESSION: 1. No deep venous thrombosis. Reviewed, dictated and finalized at location E.
== END 2023-12-25 07:44 | disposition home or self-care (01) ==
PROVIDERS: PCP Nurse Practitioner Family; Visit Provider Emergency Medicine
DX: M79.89 Other specified soft tissue disorders (principal)
CPT/HCPCS: 93971